=== PATIENT | male | born 1965 | race Two or more races ===

== ENCOUNTER 2020-05-24 14:58 | Emergency (ER) | payer OTHER, SELFPAY ==
[2020-05-24 16:20] VITALS: BP 174/80; PULSE 70; RESP 20; TEMP 36.8; O2SAT 98; BMI 78.7
[2020-05-24] MEDS: 0.9 % Sodium Chloride 1,000 ML 999 ML IVCONT (19:57)
[2020-05-24 19:59] LABS: MANUAL DIFF FLAG NO
[2020-05-24 20:02] LABS: Basophils Percent Auto 0.1 % (0-2); Eosinophils Absolute Auto 0.1 X10*3/uL (0.0-0.4); Eosinophils Percent Auto 0.6 % (0-4); Hematocrit 45.7 % (42-52); Hemoglobin 15.6 g/dl (14.0-18.0); Imm Gran Abs Auto 0.02 X10*3/uL (0.00-0.03); Imm Gran Pct Auto 0.2 % (0.0-0.4); Lymphocytes Absolute Auto 2.1 X10*3/uL (1.2-4.9); Lymphocytes Percent Auto 24.1 % (20-40); Mean Corpuscular HGB Conc 34.1 g/dl (31.0-36.0); Mean Corpuscular Hemoglobin 29.3 pg (27.0-33.0); Mean Corpuscular Volume 85.7 fL (80-98); Mean Platelet Volume 9.5 fL (9.4-12.4); Monocytes Absolute Auto 0.8 X10*3/uL (0.1-1.2); Monocytes Percent Auto 9.5 % (2-11); Neutrophils Absolute Auto 5.7 X10*3/uL (2.0-8.3); Neutrophils Percent Auto 65.5 % (45-73); Platelet Count 223 X10*3/uL (160-400); Red Blood Count 5.33 X10*6/uL (4.60-5.80); Red Cell Distribution Width 13.2 % (11.0-16.0); White Blood Count 8.7 X10*3/uL (4.8-10.8)
--- NOTE | 2020-05-24 20:07 | ED.GENADULT ---
HPI - General Adult General Chief complaint: Weakness Stated complaint: high bp Time Seen by Provider: 05/24/20 19:35 Source: patient Mode of arrival: ambulatory Limitations: no limitations History of Present Illness HPI narrative: patient been feeling weak with body aches for last 2-3 days headache no cough no fever no nausea no vomiting no diarrhea no COVID-19 contact patient had COVID positive in November, today in a.m. patient checked his blood pressure was elevated 173/95 patient denies any chest pain no shortness of breath no abdominal pain no diarrhea Onset (ago): day(s) (2-3 days) Related Data Home Medications Medication Instructions Recorded Confirmed lisinopril 1 tab PO DAILY 05/24/20 05/24/20 metoprolol tartrate 1 tab PO BID 05/24/20 05/24/20 Allergies Allergy/AdvReac Type Severity Reaction Status Date / Time No Known Allergies Allergy Unverified 04/04/20 17:17 [No Known Allergies*] Review of Systems Review of Systems: REVIEW OF SYSTEMS: Pertinent positives and negatives are stated above in the history. GEN: no fevers, chills, HEENT: no nasal congestion, sore throat, ear pain NEURO: no dizziness, focal weakness PULM: no cough, shortness of breath CV: no chest pain, palpitations, LE edema ABD: no abdominal pain, nausea, vomiting, diarrhea : no dysuria, urgency, frequency SKIN: no rash ROS otherwise negative x 10 PMFSH Past Medical History Medical History Hypertension Ulcerative colitis Social History Social History Advance Directives: No Advance Directives Information Provided: Yes Physical Exam Vital Signs: Vital Signs: Last Vital Signs Temp 98.3 F 05/24/20 16:20 Pulse 55 05/24/20 20:42 Resp 18 05/24/20 20:42 BP 137/83 05/24/20 20:42 Pulse Ox 99 05/24/20 20:42 Body Mass Index 78.7 VITAL SIGNS: Reviewed. GENERAL: Well developed, well nourished, in no acute distress. HEAD: Normocephalic/atraumatic, EYES: PERRLA No pallor/icterus noted OROPHARYNX: Oral mucosa moist no oral lesions NECK: Supple, no adenopathy LUNGS: Normal breath sounds. No adventitious sounds or accessory muscle use CARDIOVASCULAR: Regular rate and rhythm without noted murmurs, no JVD or lower extremity edema. ABDOMEN: Soft, non-tender, non-distended with normal bowel sounds. No rigidity. No guarding. No palpable masses or hernias noted MUSCULOSKELETAL: No tenderness, deformities, EXTREMITIES: No cyanosis or edema. SKIN: no rashes, ulcerations, jaundice, pallor, NEUROLOGIC: Alert and oriented x 3. Strength and sensation to light touch were grossly intact normal speech Medical Decision Making MDM Narrative Medical decision making narrative: patient with nonspecific body aches COVID test is negative labs are stable discharge him home for musculoskeletal pain patient blood pressure also improved without any medication Lab Data Lab results reviewed: Yes I reviewed the patient's lab results. Result diagrams: 05/24/20 19:53 05/24/20 20:45 Labs: Lab Results 05/24/20 05/24/20 05/24/20 Range/Units 19:53 19:53 19:53 WBC 8.7 (4.8-10.8) X10*3/uL RBC 5.33 (4.60-5.80) X10*6/uL Hgb 15.6 (14.0-18.0) g/dl Hct 45.7 (42-52) % MCV 85.7 (80-98) fL MCH 29.3 (27.0-33.0) pg MCHC 34.1 (31.0-36.0) g/dl RDW 13.2 (11.0-16.0) % Plt Count 223 (160-400) X10*3/uL MPV 9.5 (9.4-12.4) fL Immature Gran % (Auto) 0.2 (0.0-0.4) % Neut % (Auto) 65.5 (45-73) % Lymph % (Auto) 24.1 (20-40) % [place] % (Auto) 9.5 (2-11) % Eos % (Auto) 0.6 (0-4) % Baso % (Auto) 0.1 (0-2) % Lymph # (Auto) 2.1 (1.2-4.9) X10*3/uL [place] # (Auto) 0.8 (0.1-1.2) X10*3/uL Eos # (Auto) 0.1 (0.0-0.4) X10*3/uL Baso # (Auto) 0.0 (0.0-0.2) X10*3/uL Abs Immat Gran (auto) 0.02 (0.00-0.03) X10*3/uL Absolute Neuts (auto) 5.7 (2.0-8.3) X10*3/uL Absolute Nucleated RBC 0.000 (0.0-0.012) X10*3/uL Nucleated RBC % (auto) 0.0 (0.0-0.2) /100WBC Sodium Cancelled Potassium Cancelled Chloride Cancelled Carbon Dioxide Cancelled Anion Gap Cancelled BUN Cancelled Creatinine Cancelled Estim Creat Clear Calc Cancelled Estimated GFR Cancelled Random Glucose Cancelled Calcium Cancelled Total Bilirubin Cancelled Direct Bilirubin Cancelled AST Cancelled ALT Cancelled Alkaline Phosphatase Cancelled Total Protein Cancelled Albumin Cancelled Urine Color Urine Appearance Urine pH (5.0-8.0) Ur Specific [place] (1.005-1.025) Urine Protein (NEG-TRACE) MG/DL Urine Glucose (UA) (NEG) MG/DL Urine Ketones (NEG) MG/DL Urine Blood (NEG) Urine Nitrite (NEG) Ur Leukocyte Esterase (NEG) Coronavirus (PCR) (Negative) 05/24/20 05/24/20 05/24/20 Range/Units 19:55 20:45 21:52 WBC (4.8-10.8) X10*3/uL RBC (4.60-5.80) X10*6/uL Hgb (14.0-18.0) g/dl Hct (42-52) % MCV (80-98) fL MCH (27.0-33.0) pg MCHC (31.0-36.0) g/dl RDW (11.0-16.0) % Plt Count (160-400) X10*3/uL MPV (9.4-12.4) fL Immature Gran % (Auto) (0.0-0.4) % Neut % (Auto) (45-73) % Lymph % (Auto) (20-40) % [place] % (Auto) (2-11) % Eos % (Auto) (0-4) % Baso % (Auto) (0-2) % Lymph # (Auto) (1.2-4.9) X10*3/uL [place] # (Auto) (0.1-1.2) X10*3/uL Eos # (Auto) (0.0-0.4) X10*3/uL Baso # (Auto) (0.0-0.2) X10*3/uL Abs Immat Gran (auto) (0.00-0.03) X10*3/uL Absolute Neuts (auto) (2.0-8.3) X10*3/uL Absolute Nucleated RBC (0.0-0.012) X10*3/uL Nucleated RBC % (auto) (0.0-0.2) /100WBC Sodium 139 Potassium 3.8 Chloride 105 Carbon Dioxide 24 Anion Gap 14 BUN 16 Creatinine 0.79 Estim Creat Clear Calc 201.8 Estimated GFR > 60 Random Glucose 103 Calcium 8.0 L Total Bilirubin 0.2 Direct Bilirubin 0.2 AST 27 ALT 33 Alkaline Phosphatase 52 Total Protein 6.5 Albumin 3.9 Urine Color STRAW Urine Appearance CLEAR Urine pH 6.0 (5.0-8.0) Ur Specific [place] 1.020 (1.005-1.025) Urine Protein NEG (NEG-TRACE) MG/DL Urine Glucose (UA) NEG (NEG) MG/DL Urine Ketones NEG (NEG) MG/DL Urine Blood NEG (NEG) Urine Nitrite NEG (NEG) Ur Leukocyte Esterase NEG (NEG) Coronavirus (PCR) NEGATIVE (Negative) Discharge Plan Discharge Prescriptions: No Action lisinopril 20 mg tablet 1 tab PO DAILY RF: 0 metoprolol tartrate 25 mg tablet 1 tab PO BID RF: 0 Stand Alone Forms: Work/School Release
[2020-05-24] MEDS: Ketorolac Tromethamine 30 MG/ML VIAL IVPUSH (20:22)
[2020-05-24 20:42] VITALS: BP 137/83; PULSE 55; RESP 18; O2SAT 99
[2020-05-24 21:13] LABS: Alanine Aminotransferase 33 U/L (0-40); Albumin Level 3.9 g/dL (3.5-5.0); Alkaline Phosphatase 52 U/L (39-117); Anion Gap 14 (12-20); Aspartate Amino Transferase 27 U/L (5-37); Bilirubin Direct 0.2 mg/dL (0.0-0.5); Bilirubin Total 0.2 mg/dL (0.0-1.0); Blood Urea Nitrogen 16 mg/dL (9-16); Carbon Dioxide 24 mmol/L (22-29); Chloride 105 mmol/L (96-108); Creatinine Clr Calc Pharmacy 201.8; Estimated Glomerular Filt Rate > 60; Glucose Random 103 mg/dL (60-115); Potassium 3.8 mmol/l (3.3-5.1); Sodium 139 mmol/L (135-145); Total Protein 6.5 g/dL (6.5-8.0)
[2020-05-24 21:24] LABS: SARS COV2 PCR INHOUSE NEGATIVE (Negative)
--- NOTE | 2020-05-24 21:55 | PC.NURSE ---
pt ambulated to bathroom with steady gait for urine sample. pt states he feels better. pending uacc then d/c
[2020-05-24 22:08] LABS: Glucose Urine UA NEG (NEG); Leukocyte Esterase Urine NEG (NEG); Nitrite Urine NEG (NEG); Urine Blood NEG (NEG); Urine Ketones NEG (NEG); Urine Protein NEG (NEG-TRACE)
[2020-05-24 22:12] LABS: Appearance Urine CLEAR; Color Urine STRAW
[2020-05-24 22:23] VITALS: BP 126/76; PULSE 64; RESP 18; TEMP 36.9; O2SAT 99
[2020-05-24 22:56] LABS: Mucus Urine 1+ /LPF; RBC Urine 0 /HPF (0); Squamous Epithelial Cell Urine TRACE /LPF; WBC Urine 0 /HPF (0-4)
== END 2020-05-24 22:35 | disposition home or self-care (01) ==
PROVIDERS: Emergency Provider Internal Medicine; PCP Internal Medicine
DX: M79.10 Myalgia, unspecified site (principal); R51.9 Headache, unspecified; Z20.828 Contact with and (suspected) exposure to other viral communicable diseases; Z79.899 Other long term (current) drug therapy
CPT/HCPCS: 36415; 80048; 80076; 81001; 85025; 96361; 96374; 99284; J1885; U0003

== ENCOUNTER 2020-06-21 10:13 | Emergency (ER) | payer OTHER, SELFPAY ==
[2020-06-21 10:22] VITALS: BP 140/79; PULSE 60; RESP 18; TEMP 36.3; O2SAT 99; BMI 36.5
--- NOTE | 2020-06-21 10:34 | ED.ABDPAIN ---
HPI - Abdominal Pain General Chief Complaint: Abdominal Pain Stated Complaint: ABDOMINAL PAIN Time Seen by Provider: 06/21/20 10:34 Source: patient Mode of arrival: ambulatory Limitations: no limitations History of Present Illness HPI narrative: left upper burning pain. Patient had pains and had colonoscopy but needed a better prep. Denies dysuria, hematuria, no vomiting or diarrhea. MD elicited complaint: abdominal pain Pertinent past history: none Onset (ago): minute(s) Pain Consistency: constant Related Data Home Medications Medication Instructions Recorded Confirmed lisinopril 1 tab PO DAILY 05/24/20 05/24/20 metoprolol tartrate 1 tab PO BID 05/24/20 05/24/20 Allergies Allergy/AdvReac Type Severity Reaction Status Date / Time No Known Allergies Allergy Verified 06/21/20 10:27 [No Known Allergies*] Review of Systems Constitutional: Reports no additional constitutional complaints Eyes: Reports no additional eye complaints Denies dizziness Cardiovascular: Reports no additional cardiovascular complaints Respiratory: Reports as per HPI Gastrointestinal: Reports no additional gastrointestinal complaints Musculoskeletal: Reports no additional musculoskeletal complaints Skin/Breast: Denies rash Reports system reviewed and no additional complaints, except as documented, Denies dizziness and Denies Sensory deficit (Neuro) Psychiatric: Denies anxiety Physical Exam Vital Signs: Vital Signs: Last Vital Signs Temp 97.3 F 06/21/20 10:22 Pulse 60 06/21/20 10:22 Resp 18 06/21/20 10:22 BP 140/79 H 06/21/20 10:22 Pulse Ox 99 06/21/20 10:22 Body Mass Index 36.5 Const: General: healthy appearing Nutritional Appearance: obese Orientation/consciousness: oriented to person and patient oriented x3 Limitations: no limitations HENMT: Head: Yes normal to inspection Ears: external ears normal General nose exam: Normal external nose present Mouth: Normal oral and palatal mucosa present and oropharynx normal Throat: Yes posterior oropharynx normal Eyes: General: appearance normal, both eyes and all related structures Neck: Other: supple Neck: Yes normal visual inspection Chest: Chest palpation & inspection: normal inspection of the chest Resp: Auscultation: clear to auscultation bilaterally Cardio: Jugular venous distension: no JVD Rate: regular rate Rhythm: regular rhythm Heart sounds: S1 normal heart sound present and S2 normal heart sound present GI: Other: left lower abdominal pain with guarding Inspection: Yes normal to inspection Palpation (GI): Tenderness to palpation present (GI) and No hepatosplenomegaly present Auscultation: normal bowel sounds : General: Yes no CVA tenderness Back/Spine/Pelvis: Back: no CVA tenderness Skin: General skin exam: no rashes or lesions noted Neuro: General: oriented to person and patient oriented x3 Cranial nerves: Yes CN's II-XII intact bilaterally Motor exam (neuro): 5/5 motor strength present throughout Sensory Exam: No Sensory deficit (Neuro) Extrem: General: Yes normal to inspection Psych: Appearance: grossly normal Course Course Course Narrative: awaiting urine Reevaluation(s) Reevaluation #1: urine is negative Time: 15:29 MDM - Abdominal Pain MDM Narrative Medical decision making narrative: no evidence of diverticulitis or UTI will dc home Differential Diagnosis Differential diagnosis: Likely abdominal pain and diverticulitis Lab Data Result diagrams: 06/21/20 11:02 06/21/20 11:02 Labs: Lab Results 06/21/20 06/21/20 06/21/20 Range/Units 11:02 11:02 14:09 WBC 5.6 (4.8-10.8) X10*3/uL RBC 5.28 (4.60-5.80) X10*6/uL Hgb 15.4 (14.0-18.0) g/dl Hct 46.0 (42-52) % MCV 87.1 (80-98) fL MCH 29.2 (27.0-33.0) pg MCHC 33.5 (31.0-36.0) g/dl RDW 13.6 (11.0-16.0) % Plt Count 192 (160-400) X10*3/uL MPV 9.6 (9.4-12.4) fL Immature Gran % (Auto) 0.2 (0.0-0.4) % Neut % (Auto) 54.5 (45-73) % Lymph % (Auto) 32.7 (20-40) % [place] % (Auto) 11.0 (2-11) % Eos % (Auto) 1.2 (0-4) % Baso % (Auto) 0.4 (0-2) % Lymph # (Auto) 1.8 (1.2-4.9) X10*3/uL [place] # (Auto) 0.6 (0.1-1.2) X10*3/uL Eos # (Auto) 0.1 (0.0-0.4) X10*3/uL Baso # (Auto) 0.0 (0.0-0.2) X10*3/uL Abs Immat Gran (auto) 0.01 (0.00-0.03) X10*3/uL Absolute Neuts (auto) 3.1 (2.0-8.3) X10*3/uL Absolute Nucleated RBC 0.000 (0.0-0.012) X10*3/uL Nucleated RBC % (auto) 0.0 (0.0-0.2) /100WBC Sodium 139 (135-145) mmol/L Potassium 4.5 (3.3-5.1) mmol/l Chloride 102 (96-108) mmol/L Carbon Dioxide 30 H (22-29) mmol/L Anion Gap 12 (12-20) BUN 20 H (9-16) mg/dL Creatinine 0.90 (0.5-1.4) mg/dL Estim Creat Clear Calc 110.9 Estimated GFR > 60 Random Glucose 95 (60-115) mg/dL Calcium 9.3 D (8.4-10.2) mg/dL Total Bilirubin 0.8 (0.0-1.0) mg/dL Direct Bilirubin 0.2 (0.0-0.5) mg/dL AST 28 (5-37) U/L ALT 37 (0-40) U/L Alkaline Phosphatase 54 (39-117) U/L Total Protein 7.2 (6.5-8.0) g/dL Albumin 4.3 (3.5-5.0) g/dL Urine Color YELLOW Urine Appearance CLEAR Urine pH 6.5 (5.0-8.0) Ur Specific [place] 1.015 (1.005-1.025) Urine Protein NEG (NEG-TRACE) MG/DL Urine Glucose (UA) NEG (NEG) MG/DL Urine Ketones NEG (NEG) MG/DL Urine Blood NEG (NEG) Urine Nitrite NEG (NEG) Ur Leukocyte Esterase NEG (NEG) Imaging Data CT scan - abdomen: Radiologist's impression: no diverticulitis Discharge Plan Discharge Clinical Impression: Abdominal pain Qualifiers: Abdominal location: left lower quadrant Qualified Code(s): R10.32 - Left lower quadrant pain Patient Disposition: Home, Self-Care Prescriptions: No Action lisinopril 20 mg tablet 1 tab PO DAILY RF: 0 metoprolol tartrate 25 mg tablet 1 tab PO BID RF: 0 Referrals: Nilsa Sexton MD [Primary Care Provider] - 2 days PMFSH Past Medical History Medical History Hypertension Psoriasis Ulcerative colitis Surgical History No pertinent past surgical history Social History Social History Alcohol intake: never Smoked in Last 30 Days: No Use of substances other than those prescribed or required for medical reasons: Unable to respond Advance Directives: No Advance Directives Information Provided: No
--- NOTE | 2020-06-21 10:54 | CT_ITS ---
EXAMINATION: CT ABDOMEN AND PELVIS WITHOUT CONTRAST CLINICAL INFORMATION: Left lower pain. COMPARISON: None TECHNIQUE: Multidetector volumetric imaging was performed from the superior aspect of the liver through the pubic symphysis. Sagittal and coronal reformatted images were obtained on the technologist's workstation. This CT examination was performed using dose optimization techniques as appropriate, variously including the following: *Automated exposure control *Adjustment of mA and/or kV according to patient size (this includes techniques or standardized protocols for targeted exams where dose is matched to indication/reason for exam; i.e. extremities or head) *Use of iterative reconstruction technique DLP: 813 mGy-cm FINDINGS: LUNG BASES: The lung bases are clear there is an size is normal. LIVER, GALLBLADDER, AND BILIARY TREE: The liver is normal in size, shape, and attenuation. No focal hepatic lesion or biliary ductal dilatation is present. The gallbladder is unremarkable with no evidence of radiopaque gallstones, gallbladder wall thickening, or obvious pericholecystic inflammatory changes. PANCREAS: Unremarkable. SPLEEN: Unremarkable. ADRENAL GLANDS: Unremarkable. KIDNEYS AND URETERS: The kidneys are normal in size, shape, and attenuation. No hydronephrosis, hydroureter, or calculi seen. No perinephric stranding. BLADDER: Unremarkable. GASTROINTESTINAL TRACT: There is scattered stool and gas seen throughout the colon. There is scattered diverticula in the colon the small bowel loops are normal caliber. No free air, free fluid or inflammatory process seen. ABDOMINAL WALL: There is no evidence of hernia minimal fat filled nondistended left inguinal canal is noted. LYMPH NODES: Normal. VASCULAR: Unremarkable. PELVIC VISCERA: There is no free fluid or free air seen. OSSEOUS STRUCTURES: Is bilateral L5-S1, L4-L5 and right L3-L4 facet joint hypertrophy and arthropathy. There is moderate ventral spondylosis upper and mid lumbar spine. No fracture or lytic process seen. CT/CT abdomen pelvis wo con IMPRESSION: No acute intra-abdominal process seen. Scattered stool in the dilated level with no evidence of diverticulitis. Degenerative facet joint arthropathy.
[2020-06-21 11:08] LABS: Basophils Percent Auto 0.4 % (0-2); Eosinophils Absolute Auto 0.1 X10*3/uL (0.0-0.4); Eosinophils Percent Auto 1.2 % (0-4); Hemoglobin 15.4 g/dl (14.0-18.0); Imm Gran Abs Auto 0.01 X10*3/uL (0.00-0.03); Imm Gran Pct Auto 0.2 % (0.0-0.4); Lymphocytes Absolute Auto 1.8 X10*3/uL (1.2-4.9); Lymphocytes Percent Auto 32.7 % (20-40); MANUAL DIFF FLAG NO; Mean Corpuscular HGB Conc 33.5 g/dl (31.0-36.0); Mean Corpuscular Hemoglobin 29.2 pg (27.0-33.0); Mean Corpuscular Volume 87.1 fL (80-98); Mean Platelet Volume 9.6 fL (9.4-12.4); Monocytes Absolute Auto 0.6 X10*3/uL (0.1-1.2); Neutrophils Absolute Auto 3.1 X10*3/uL (2.0-8.3); Neutrophils Percent Auto 54.5 % (45-73); Platelet Count 192 X10*3/uL (160-400); Red Blood Count 5.28 X10*6/uL (4.60-5.80); Red Cell Distribution Width 13.6 % (11.0-16.0); White Blood Count 5.6 X10*3/uL (4.8-10.8)
[2020-06-21 11:37] LABS: Alanine Aminotransferase 37 U/L (0-40); Albumin Level 4.3 g/dL (3.5-5.0); Alkaline Phosphatase 54 U/L (39-117); Anion Gap 12 (12-20); Aspartate Amino Transferase 28 U/L (5-37); Bilirubin Direct 0.2 mg/dL (0.0-0.5); Bilirubin Total 0.8 mg/dL (0.0-1.0); Blood Urea Nitrogen 20 mg/dL (9-16); Calcium 9.3 mg/dL (8.4-10.2); Carbon Dioxide 30 mmol/L (22-29); Chloride 102 mmol/L (96-108); Creatinine Clr Calc Pharmacy 110.9; Estimated Glomerular Filt Rate > 60; Glucose Random 95 mg/dL (60-115); Potassium 4.5 mmol/l (3.3-5.1); Sodium 139 mmol/L (135-145); Total Protein 7.2 g/dL (6.5-8.0)
[2020-06-21 14:20] LABS: Glucose Urine UA NEG (NEG); Leukocyte Esterase Urine NEG (NEG); Nitrite Urine NEG (NEG); PH 6.5 (5.0-8.0); Specific Gravity - Urine 1.015 (1.005-1.025); Urine Blood NEG (NEG); Urine Ketones NEG (NEG); Urine Protein NEG (NEG-TRACE)
[2020-06-21 14:22] LABS: Appearance Urine CLEAR; Color Urine YELLOW
== END 2020-06-21 17:01 | disposition home or self-care (01) ==
PROVIDERS: Emergency Provider Emergency Medicine; PCP Internal Medicine
DX: R10.13 Epigastric pain (principal); R10.32 Left lower quadrant pain; Z79.899 Other long term (current) drug therapy
CPT/HCPCS: 36415; 74176; 80048; 80076; 81003; 85025; 99284

== ENCOUNTER → 2020-06-28 16:15 | Outpatient (BNVA) | payer OTHER, SELFPAY | PROVIDERS: PCP Internal Medicine; Visit Provider Physician Assistant | DX: Z76.89 Persons encountering health services in other specified circumstances (principal) ==

== ENCOUNTER → 2020-07-02 08:15 | Outpatient (BNVA) | payer OTHER, SELFPAY | PROVIDERS: PCP Internal Medicine; Visit Provider Surgery | DX: Z76.89 Persons encountering health services in other specified circumstances (principal) ==

== ENCOUNTER → 2020-07-10 08:07 | Outpatient (BNVA) | payer OTHER, SELFPAY | PROVIDERS: PCP Internal Medicine; Visit Provider Dietitian, Registered | DX: Z76.89 Persons encountering health services in other specified circumstances (principal) ==

== ENCOUNTER 2020-07-11 11:06 | Outpatient (REF) | payer OTHER, SELFPAY ==
--- NOTE | 2020-07-11 11:13 | ECG_ITS ---
Test Reason : CP Blood Pressure : / mmHG Vent. Rate : 051 BPM Atrial Rate : 051 BPM P-R Int : 140 ms QRS Dur : 098 ms QT Int : 426 ms P-R-T Axes : 034 012 022 degrees QTc Int : 392 ms Sinus bradycardia RSR' or QR pattern in V1 suggests right ventricular conduction delay Minimal voltage criteria for LVH, may be normal variant Borderline ECG No previous ECGs available Referred By: Robert Bee Electronically Signed By:DANIEL EID MD
--- NOTE | 2020-07-11 11:38 | XR_ITS ---
EXAMINATION: XR CHEST CLINICAL INFORMATION: K21.9 - Gastro-esophageal reflux disease without esophagitis COMPARISON: CT abdomen 06/21/2020 TECHNIQUE: 2 views of the chest were obtained. FINDINGS: The lungs are clear. There is no airspace consolidation or atelectasis or groundglass opacity. The costophrenic sulci are well-defined. The heart is normal in size. The hilar and mediastinal contours are normal. There are multilevel degenerative changes thoracic spine. XR/XR chest 2V IMPRESSION: Unremarkable examination.
[2020-07-11 12:16] LABS: MANUAL DIFF FLAG NO
[2020-07-11 12:22] LABS: Basophils Percent Auto 0.3 % (0-2); Eosinophils Absolute Auto 0.1 X10*3/uL (0.0-0.4); Eosinophils Percent Auto 1.5 % (0-4); Hematocrit 47.7 % (42-52); Hemoglobin 15.9 g/dl (14.0-18.0); Imm Gran Abs Auto 0.01 X10*3/uL (0.00-0.03); Imm Gran Pct Auto 0.2 % (0.0-0.4); Lymphocytes Absolute Auto 1.9 X10*3/uL (1.2-4.9); Lymphocytes Percent Auto 31.1 % (20-40); Mean Corpuscular HGB Conc 33.3 g/dl (31.0-36.0); Mean Corpuscular Hemoglobin 29.1 pg (27.0-33.0); Mean Corpuscular Volume 87.4 fL (80-98); Monocytes Absolute Auto 0.7 X10*3/uL (0.1-1.2); Monocytes Percent Auto 11.2 % (2-11); Neutrophils Absolute Auto 3.4 X10*3/uL (2.0-8.3); Neutrophils Percent Auto 55.7 % (45-73); Platelet Count 241 X10*3/uL (160-400); Red Blood Count 5.46 X10*6/uL (4.60-5.80); Red Cell Distribution Width 13.5 % (11.0-16.0); White Blood Count 6.1 X10*3/uL (4.8-10.8)
[2020-07-11 12:33] LABS: Alanine Aminotransferase 38 U/L (0-40); Albumin Level 4.5 g/dL (3.5-5.0); Alkaline Phosphatase 60 U/L (39-117); Anion Gap 13 (12-20); Aspartate Amino Transferase 27 U/L (5-37); Bilirubin Total 0.7 mg/dL (0.0-1.0); Blood Urea Nitrogen 24 mg/dL (9-16); C Reactive Protein 0.44 mg/dL (< or = 0.50); Calcium 9.8 mg/dL (8.4-10.2); Carbon Dioxide 31 mmol/L (22-29); Chloride 101 mmol/L (96-108); Cholesterol 186 mg/dL; Estimated Glomerular Filt Rate > 60; Glucose Random 90 mg/dL (60-115); HDL Cholesterol 54 mg/dL; LDL Cholesterol Calculated 115 mg/dl; Potassium 4.6 mmol/l (3.3-5.1); Sodium 140 mmol/L (135-145); Total Protein 7.6 g/dL (6.5-8.0); Triglycerides 85 mg/dL
[2020-07-11 12:37] LABS: Estimated Average Glucose 123 mg/dL; Hemoglobin A1c % 5.9 %
[2020-07-11 12:56] LABS: Ferritin 264 ng/mL (20-250); Vitamin D 25-OH Total 24.3 ng/mL (>30)
[2020-07-11 13:04] LABS: Folate > 20.0 ng/mL (> or = 4.0); Vitamin B12 412 pg/mL (200-900)
[2020-07-12 10:56] LABS: Insulin Level Total 16.8 uIU/mL
[2020-07-15 08:22] LABS: Vitamin B1 25 nmol/L (8-30)
[2020-07-15 16:12] LABS: Zinc 116 mcg/dL (60-130)
[2020-07-15 18:52] LABS: PTHI 40 pg/mL (14-64)
[2020-07-17 11:32] LABS: Vitamin A 47 mcg/dL (38-98)
== END 2020-07-11 11:07 | disposition home or self-care (01) ==
LOC: HO.XRAY 11:06
PROVIDERS: PCP Internal Medicine; Visit Provider Surgery
DX: R07.9 Chest pain, unspecified (principal); I10 Essential (primary) hypertension; E66.9 Obesity, unspecified; Z68.37 Body mass index [BMI] 37.0-37.9, adult; G47.30 Sleep apnea, unspecified; K21.9 Gastro-esophageal reflux disease without esophagitis
CPT/HCPCS: 36415; 71046; 80053; 80061; 82306; 82607; 82728; 82746; 83036; 83525; 83970; 84425; 84443; 84590; 84630; 85025; 86140; 93005

== ENCOUNTER 2020-07-15 09:46 | Inpatient (IN) | payer OTHER, SELFPAY ==
[2020-07-15] VITALS (12 sets, daily range): BP systolic 111–176; BP diastolic 63–95; PULSE 60–76; RESP 14–72; TEMP 36.2–36.7; O2SAT 97–100; BMI 37.5
--- NOTE | 2020-07-15 10:56 | CT_ITS ---
EXAMINATION: CT HEAD WITHOUT CONTRAST CLINICAL INFORMATION: Headache, blurry vision and hypertension COMPARISON: None TECHNIQUE: Contiguous axial imaging was performed from the skull base to vertex without intravenous administration of contrast. This CT examination was performed using dose optimization techniques as appropriate, variously including the following: *Automated exposure control *Adjustment of mA and/or kV according to patient size (this includes techniques or standardized protocols for targeted exams where dose is matched to indication/reason for exam; i.e. extremities or head) *Use of iterative reconstruction technique DLP: 752 mGy-cm FINDINGS: No acute intra-axial, extra-axial bleed, masses collection or midline shift. There is a focal hypodensity in the left frontal lobe deep white matter a small lacunar infarct likely acute. Visualized best on axial image 16/4 and coronal image 87/7. The ventricles are normal in size. There is no abnormal attenuation within the brain parenchyma. The osseous structures and soft tissues are normal. There is a small polyp or retention cyst right maxillary sinus. Rest of the paranasal sinuses and mastoid air cells are well-aerated.. CT/CT head/brain wo con IMPRESSION: Small lacunar acute infarct left deep white matter left frontal lobe Small polyp or retention cyst right maxillary sinus.
--- NOTE | 2020-07-15 10:56 | ECG_ITS ---
Test Reason : HYPERTENSION Blood Pressure : / mmHG Vent. Rate : 063 BPM Atrial Rate : 063 BPM P-R Int : 148 ms QRS Dur : 098 ms QT Int : 406 ms P-R-T Axes : 025 -07 022 degrees QTc Int : 415 ms Normal sinus rhythm Incomplete right bundle branch block Moderate voltage criteria for LVH, may be normal variant Borderline ECG When compared with ECG of 11-JUL-2020 11:29, No significant change was found Referred By: Eva Chavez Electronically Signed By:ADILENE MARTIN
[2020-07-15 11:50] LABS: MANUAL DIFF FLAG NO
[2020-07-15 11:52] LABS: Basophils Percent Auto 0.3 % (0-2); Eosinophils Absolute Auto 0.1 X10*3/uL (0.0-0.4); Eosinophils Percent Auto 1.4 % (0-4); Hematocrit 45.2 % (42-52); Hemoglobin 15.1 g/dl (14.0-18.0); Imm Gran Abs Auto 0.02 X10*3/uL (0.00-0.03); Imm Gran Pct Auto 0.3 % (0.0-0.4); Lymphocytes Absolute Auto 1.8 X10*3/uL (1.2-4.9); Lymphocytes Percent Auto 28.1 % (20-40); Mean Corpuscular HGB Conc 33.4 g/dl (31.0-36.0); Mean Corpuscular Hemoglobin 29.4 pg (27.0-33.0); Mean Corpuscular Volume 88.1 fL (80-98); Mean Platelet Volume 9.3 fL (9.4-12.4); Monocytes Absolute Auto 0.7 X10*3/uL (0.1-1.2); Monocytes Percent Auto 10.1 % (2-11); Neutrophils Absolute Auto 3.9 X10*3/uL (2.0-8.3); Neutrophils Percent Auto 59.8 % (45-73); Platelet Count 212 X10*3/uL (160-400); Red Blood Count 5.13 X10*6/uL (4.60-5.80); Red Cell Distribution Width 13.5 % (11.0-16.0); White Blood Count 6.5 X10*3/uL (4.8-10.8)
--- NOTE | 2020-07-15 12:11 | ED_ITS ---
HPI - General Adult General Chief complaint: General Medical Stated complaint: high blood pressure Time Seen by Provider: 07/15/20 10:47 Source: patient Mode of arrival: ambulatory History of Present Illness HPI narrative: 55-year-old male with a past medical history of GERD, hypertension, BC, psoriasis, UC, sleep apnea on CPAP presenting to the ED complaining of headache with assoc blurry vision this morning around 5:00 a.m. while getting ready for work. Admits took blood pressure and was elevated 160s/100s. Also reports left arm pain since yesterday. Denies headache or visual changes at present. 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 Denies fever, chills, neck pain, CP/SOB, abdominal pain, vom iting, recent illness, numbness/tingling/weakness Onset (ago): hour(s) Related Data Home Medications Medication Instructions Recorded Confirmed lisinopril 1 tab PO DAILY 05/24/20 07/02/20 metoprolol tartrate 1 tab PO BID 05/24/20 07/02/20 omeprazole magnesium 20 mg 20 mg PO DAILY 07/02/20 07/02/20 tablet,delayed release Allergies Allergy/AdvReac Type Severity Reaction Status Date / Time No Known Allergies Allergy Verified 07/02/20 10:25 [No Known Allergies*] Review of Systems Review of Systems: Constitutional: No Weight loss, No Fever, No Chills ENT/Mouth: No Nasal Congestion, No Sinus Pain, No Hoarseness, No sore throat Eyes: No Eye Pain, No Discharge, + Vision Changes (resolved) Cardiovascular: No Chest Pain, No SOB, No Edema, No Palpitations Respiratory: No Cough, No Dyspnea Gastrointestinal: + Nausea, No Vomiting, No Diarrhea, No Constipation, No Abdominal pain Genitourinary: No Dysuria, No Urinary Frequency, No Hematuria Musculoskeletal: +L arm pain, No Myalgias, No Joint Swelling Skin: No Skin Lesions, No rash Neuro: No Weakness, No Numbness, No Paresthesias, No Loss of Consciousness, No Dizziness, + Headache (resolved) Yes all other systems are reviewed and are negative PMFSH Past Medical History Attestation statement: The following information was validated with the patient. Medical History (Updated 07/15/20 @ 14:14 by ALFRED Haley) Back pain GERD (gastroesophageal reflux disease) Hypertension Obesity Psoriasis Sleep apnea with use of continuous positive airway pressure (CPAP) Ulcerative colitis Surgical History No pertinent past surgical history Family History Family History Father No problems noted. Mother No problems noted. Sister No problems noted. Sister No problems noted. Sister Kidney replaced by transplant Brother No problems noted. Brother No problems noted. Brother No problems noted. Brother Diabetes Son No problems noted. Daughter No problems noted. Social History Social History Alcohol intake: never Smoking Status: Never smoker Advance Directives: No Advance Directives Information Provided: Yes Physical Exam Vital Signs: Vital Signs: Last Vital Signs Temp 98 F 07/15/20 12:37 Pulse 66 07/15/20 12:37 Resp 18 07/15/20 12:37 BP 131/70 07/15/20 12:37 Pulse Ox 98 07/15/20 12:37 Body Mass Index 37.5 Const: General: cooperative and healthy appearing Orientation/consciousness: patient oriented x3 Limitations: no limitations HENMT: Head: Yes normal to inspection Ears: hearing grossly normal bilaterally General nose exam: Normal external nose present Face and sinus: Yes normal facial exam Throat: Yes posterior oropharynx normal Eyes: General: appearance normal, both eyes and all related structures Pupils: Equal, round and reactive pupils present EOM: EOMs intact bilaterally Neck: Neck: Yes normal visual inspection and Yes no meningeal signs Resp: Effort & Inspection: normal respiratory effort Auscultation: clear to auscultation bilaterally, no rales, no rhonchi and no wheezes Cardio: Rate: regular rate Heart sounds: S1 normal heart sound present and S2 normal heart sound present Peripheral pulses: radial pulses present GI: Inspection: Yes normal to inspection Palpation (GI): Soft to palpation, nontender, no guarding and not rigid Skin: Rashes: no rashes Wounds: no wounds Neuro: General: patient oriented x3, tone normal, moves all extremities, no meningeal signs, no focal motor deficits and CN's II-XI intact bilaterally Cranial nerves: Yes Equal, round and reactive pupils present Cognition (Neuro): normal cognition Gait exam (Neuro): Normal gait present Motor ex am (neuro): 5/5 motor strength present throughout Coordination: [id number] test normal and Romberg test negative Extrem: General: Yes normal to inspection NIH Stroke Scale Internal: Initial- Upon Arrival Level of Consciousness: Alert Level of Consciousness Questions: Answers both questions correctly Level of Consciousness Commands: Performs both tasks correctly Best Gaze: Normal Visual: No visual loss Facial Palsy: Normal Motor Arm (Right): No drift Motor Arm (Left): No drift Motor Leg (Right): No drift Motor Leg (Left): No drift Limb Ataxia: Absent Sensory: Normal Best Language: No aphasia Dysarthia: Normal Extinction and Inattention: No abnormality Score: 0 Course Course Course Narrative: * Labs notable for troponin of 7.1 > will obtain repeat 3 hour, labs otherwise unremarkable * 1355- head CT showing small acute lacunar infarct > did not receive a call from radiology. Patient remains asymptomatic without any neuro deficits > neurology paged NIHSS = 0 * Spoke to Dr. Sanchez, recommended admission, aspirin (which patient already took this morning), an MRI > plan for admission Medical Decision Making MDM Narrative Medical decision making narrative: 55-year-old male with a past medical history of GERD, hypertension, BC, psoriasis, UC, sleep apnea on CPAP presenting to the ED complaining of headache with assoc blurry vision this morning around 5:00 a.m. while getting ready for work. Admits took blood pressure and was elevated 160s/100s. Also reports left arm pain since yesterday. On exam VSS, NAD, asymptomatic at present, no focal neuro deficits. Low concern for hypertensive emergency/urgency. ?Migraine headache, lower concern for CVA/TIA without other symptoms. Rule out ACS Plan: EKG, labs, head CT, reassess Lab Data Result diagrams: 07/15/20 11:42 07/15/20 11:42 Labs: Lab Results 07/15/20 07/15/20 07/15/20 Range/Units 11:42 11:42 11:42 WBC 6.5 (4.8-10.8) X10*3/uL RBC 5.13 (4.60-5.80) X10*6/uL Hgb 15.1 (14.0-18.0) g/dl Hct 45.2 (42-52) % MCV 88.1 (80-98) fL MCH 29.4 (27.0-33.0) pg MCHC 33.4 (31.0-36.0) g/dl RDW 13.5 (11.0-16.0) % Plt Count 212 (160-400) X10*3/uL MPV 9.3 L (9.4-12.4) fL Immature Gran % (Auto) 0.3 (0.0-0.4) % Neut % (Auto) 59.8 (45-73) % Lymph % (Auto) 28.1 (20-40) % [place] % (Auto) 10.1 (2-11) % Eos % (Auto) 1.4 (0-4) % Baso % (Auto) 0.3 (0-2) % Lymph # (Auto) 1.8 (1.2-4.9) X10*3/uL [place] # (Auto) 0.7 (0.1-1.2) X10*3/uL Eos # (Auto) 0.1 (0.0-0.4) X10*3/uL Baso # (Auto) 0.0 (0.0-0.2) X10*3/uL Abs Immat Gran (auto) 0.02 (0.00-0.03) X10*3/uL Absolute Neuts (auto) 3.9 (2.0-8.3) X10*3/uL Absolute Nucleated RBC 0.000 (0.0-0.012) X10*3/uL Nucleated RBC % (auto) 0.0 (0.0-0.2) /100WBC Hold Blue Top SEE NOTE Sodium 140 (135-145) mmol/L Potassium 4.6 (3.3-5.1) mmol/l Chloride 102 (96-108) mmol/L Carbon Dioxide 32 H (22-29) mmol/L Anion Gap 11 L (12-20) BUN 20 H (9-16) mg/dL Creatinine 1.05 (0.5-1.4) mg/dL Estim Creat Clear Calc 93.5 Estimated GFR > 60 Random Glucose 103 (60-115) mg/dL Calcium 9.2 D (8.4-10.2) mg/dL Magnesium 2.1 (1.6-2.6) mg/dL Total Bilirubin 0.3 (0.0-1.0) mg/dL Direct Bilirubin < 0.2 (0.0-0.5) mg/dL AST 22 (5-37) U/L ALT 32 (0-40) U/L Alkaline Phosphatase 56 (39-117) U/L Troponin I High Sens (<3.5-35.0) ng/L Total Protein 7.0 (6.5-8.0) g/dL Albumin 4.2 (3.5-5.0) g/dL 07/15/20 Range/Units 11:42 WBC (4.8-10.8) X10*3/uL RBC (4.60-5.80) X10*6/uL Hgb (14.0-18.0) g/dl Hct (42-52) % MCV (80-98) fL MCH (27.0-33.0) pg MCHC (31.0-36.0) g/dl RDW (11.0-16.0) % Plt Count (160-400) X10*3/uL MPV (9.4-12.4) fL Immature Gran % (Auto) (0.0-0.4) % Neut % (Auto) (45-73) % Lymph % (Auto) (20-40) % [place] % (Auto) (2-11) % Eos % (Auto) (0-4) % Baso % (Auto) (0-2) % Lymph # (Auto) (1.2-4.9) X10*3/uL [place] # (Auto) (0.1-1.2) X10*3/uL Eos # (Auto) (0.0-0.4) X10*3/uL Baso # (Auto) (0.0-0.2) X10*3/uL Abs Immat Gran (auto) (0.00-0.03) X10*3/uL Absolute Neuts (auto) (2.0-8.3) X10*3/uL Absolute Nucleated RBC (0.0-0.012) X10*3/uL Nucleated RBC % (auto) (0.0-0.2) /100WBC Hold Blue Top Sodium (135-145) mmol/L Potassium (3.3-5.1) mmol/l Chloride (96-108) mmol/L Carbon Dioxide (22-29) mmol/L Anion Gap (12-20) BUN (9-16) mg/dL Creatinine (0.5-1.4) mg/dL Estim Creat Clear Calc Estimated GFR Random Glucose (60-115) mg/dL Calcium (8.4-10.2) mg/dL Magnesium (1.6-2.6) mg/dL Total Bilirubin (0.0-1.0) mg/dL Direct Bilirubin (0.0-0.5) mg/dL AST (5-37) U/L ALT (0-40) U/L Alkaline Phosphatase (39-117) U/L Troponin I High Sens 7.1 (<3.5-35.0) ng/L Total Protein (6.5-8.0) g/dL Albumin (3.5-5.0) g/dL Discharge Plan Discharge Clinical Impression: Acute lacunar infarction Patient Disposition: Admitted As Inpatient
[2020-07-15 12:18] LABS: Alanine Aminotransferase 32 U/L (0-40); Albumin Level 4.2 g/dL (3.5-5.0); Alkaline Phosphatase 56 U/L (39-117); Anion Gap 11 (12-20); Aspartate Amino Transferase 22 U/L (5-37); Bilirubin Direct < 0.2 mg/dL (0.0-0.5); Bilirubin Total 0.3 mg/dL (0.0-1.0); Blood Urea Nitrogen 20 mg/dL (9-16); Calcium 9.2 mg/dL (8.4-10.2); Carbon Dioxide 32 mmol/L (22-29); Chloride 102 mmol/L (96-108); Creatinine Clr Calc Pharmacy 93.5; Estimated Glomerular Filt Rate > 60; Glucose Random 103 mg/dL (60-115); Magnesium 2.1 mg/dL (1.6-2.6); Potassium 4.6 mmol/l (3.3-5.1); Sodium 140 mmol/L (135-145)
[2020-07-15 12:24] LABS: Troponin-I High Sensitivity 7.1 ng/L (<3.5-35.0)
--- NOTE | 2020-07-15 16:31 | HP_ITS ---
DATE OF SERVICE: 07/15/2020 CHIEF COMPLAINT: Headache. HISTORY OF PRESENT ILLNESS: A 55-year-old man, who presented to the ER with complaints of headache and visual changes around 5 o'clock this morning. He woke up feeling fine. He went to take a shower and as he was getting dressed, he developed these symptoms. He denied any chest pain, shortness of breath, nausea, vomiting, loss of consciousness, or weakness, although he did report some muscle pain to his left arm. He reported that he took his blood pressure this morning and that was 165/101, which he reported was usually high for him. He is usually around 120s to 130 systolic. He reported that he is compliant with his medications, but missed his blood pressure medicine last night. He took 2 baby aspirin while at home. Upon arrival to the ER, his blood pressure actually was looked okay at 145/79. All of his other vital signs were stable. His labs also were within acceptable limits. Initial troponin was 7.1. Brain CT did show a small lacunar infarct to the left deep white matter in the left frontal lobe while here. He had already received aspirin at home, therefore, he was not given any medications in the ER. He will be admitted for further management and treatment of acute stroke. PAST MEDICAL HISTORY: 1. Hypertension. 2. Colitis. 3. Psoriasis. 4. History of sleep apnea, on CPAP. 5. Obesity. 6. Chronic back pain. PAST SURGICAL HISTORY: Denies. FAMILY HISTORY: Father had coronary artery disease and from colon cancer. SOCIAL HISTORY: Denies any alcohol, tobacco, or illicit drug use. Lives alone. 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 MEDICATIONS: 1. Lisinopril 20 mg daily. 2. Metoprolol 25 mg twice daily. REVIEW OF SYSTEMS: CONSTITUTIONAL: Denies any recent fever, chills, o decrease in appetite. RESPIRATORY: Denies any shortness of breath, cough, or sputum production. CARDIOVASCULAR: Denies any chest pain, orthopnea, PND, or edema. GASTROINTESTINAL: Denies any dysphagia, abdominal pain, nausea, vomiting, or diarrhea. GENITOURINARY: Denies any dysuria, frequency, or hematuria. MUSCULOSKELETAL: Denies any joint pain or swelling. NEUROPSYCH: Denies any weakness or seizures. All other systems are reviewed and are negative. PHYSICAL EXAMINATION: CONSTITUTIONAL: Resting in bed, appears to be in no acute distress. VITAL SIGNS: 98, 66, 18, 131/70, and 98% on room air. SKIN: Intact without rashes or open sores. HEENT: Head is normocephalic and atraumatic. Eyes, pupils are PERRLA. Sclerae anicteric. Mouth and throat, mucous membranes are intact and moist. NECK: Supple. No lymphadenopathy. No JVD noted. CHEST: Clear to auscultation without wheezes, rhonchi, or rales. HEART: Regular rate and rhythm. Clear S1 and S2. No murmurs, rubs, or gallops. ABDOMEN: Positive bowel sounds. Soft and nontender. No hepatomegaly or splenomegaly noted. NEURO: The patient is alert and oriented x3. No focal deficits noted. LABORATORY DATA: WBC 6.5, hemoglobin 15.1, hematocrit 45.2, and platelets 212. Sodium is 140, potassium is 4.6, chloride is 102, BUN is 20, and creatinine is 1.05. ASSESSMENT AND PLAN: A 55-year-old man being admitted with what appears to be an acute stroke. No history of stroke in the past. He does have a history of hypertension and had elevated blood pressure this morning. 1. Acute Lacunar Stroke. follow blood pressure, neurochecks. We will obtain MRI, Neurology to follow, aspirin, statin. Obtain echocardiogram, carotid Doppler, lipid profile follow blood sugars,physical therapy, and stroke education.obtain neuro consult. 2. Hypertension. Continue lisinopril and metoprolol,monitor blood pressure closley. 3. Obstructive sleep apnea, on CPAP. 4. Deep vein thrombosis prophylaxis with subcutaneous heparin. 5. Case discussed with Dr. Pinzon. 6. FULL CODE. RENETTA Cesar MD JR/JOCELYNE / [id number] MTDD
[2020-07-15] MEDS: Butalb/Acetamin/Caff 50/325/40 TABLET 1 TAB PO (17:04)
--- NOTE | 2020-07-15 17:53 | P.EN_ITS ---
Event Note Date of Service: 07/16/20 Event Note: Patient seen examined with APC, 55-year-old patient with past [facility] history significant for hypertension, obesity, sleep apnea on CPAP, presented with headache, dizziness and blurred visions since 05:00, a.m. patient blood pressure at home was 165/101 since he skipped his blood pressure medication last evening patient took 2 baby aspirin and came to the emergency room where he was noted to have a blood pressure 145/[address] scan of the brain showed a small lacunar infarction to the left deep white matter in the left frontal lobe. On examination patient awake alert Neuro nonfocal Assessment and plan Acute lacunar infarction likely due to uncontrolled blood pressure will admit patient close monitoring and further evaluation will check lipid profile blood sugar and adjust blood pressure medication for better blood pressure control, continue neuro check and obtain Neuro eval for further recommendation.
[2020-07-15 18:20] LABS: COVID-19 Test Negative (Negative); IDNOW Serial# 9DD0AD1C
[2020-07-15 18:33] LABS: Troponin-I High Sensitivity 5.2 ng/L (<3.5-35.0)
--- NOTE | 2020-07-15 20:52 | PC.NURSE ---
pt awake and alert, reports he is no longer feeling dizziness or headache. pt answering questions with clear speech. pt reports he has been able to stand without dizziness since he has been in er. pt understands he is being admitted to r/o stroke and plans for an mri tmrw.
--- NOTE | 2020-07-15 21:51 | PC.NURSE ---
second call to floor for report, awaiting call back.
[2020-07-15] MEDS: Famotidine 20 MG TABLET PO (23:18)
[2020-07-15] MEDS: Atorvastatin Calcium 40 MG TABLET PO (23:18)
[2020-07-15] MEDS: Metoprolol Tartrate 25 MG TABLET PO (23:19)
[2020-07-15] MEDS: Heparin Sodium,Porcine 5,000 UNIT/ML VIAL 5000 UNIT SUBCUT (23:21)
[2020-07-15] MEDS: 0.9 % Sodium Chloride Flush 3 ML SYRINGE IVFLUSH (23:53)
--- NOTE | 2020-07-16 | US_ITS ---
EXAMINATION: US EXTRACRANIAL CAROTID DUPLEX, BILATERAL CLINICAL INFORMATION: Stroke. COMPARISON: None TECHNIQUE: Real-time ultrasound and Doppler techniques (integrating B-mode 2-D vascular images, Doppler spectral analysis and color-flow Doppler imaging) were utilized to interrogate the extracranial carotid arteries, the vertebral arteries and proximal subclavian arteries bilaterally. The degree of stenosis is determined by criteria similar to NASCET. FINDINGS: No significant atherosclerotic plaque was seen bilaterally. Color Doppler interrogation demonstrated normal arterial waveforms with brisk systolic upstrokes. No tardus parvus waveform was identified. Arterial velocities were as follows in cm/s: RIGHT: Proximal CCA: 114 Distal CCA: 99 Proximal ICA: 76 Mid ICA: 86 Distal ICA: 117 ECA: 104 LEFT: Proximal CCA: 138 Distal CCA: 120 Proximal ICA: 115 Mid ICA: 84 Distal ICA: 92 ECA: 130 The vertebral arteries demonstrated normal arterial waveforms and direction of flow. US/US carotid duplex BI IMPRESSION: No hemodynamically significant arterial stenosis bilaterally.
[2020-07-16 04:00] VITALS: BP 131/74; PULSE 67; RESP 18; TEMP 37.4; O2SAT 98
[2020-07-16 06:37] LABS: MANUAL DIFF FLAG NO
[2020-07-16 06:48] LABS: Basophils Percent Auto 0.3 % (0-2); Eosinophils Percent Auto 0.6 % (0-4); Hematocrit 45.8 % (42-52); Hemoglobin 15.3 g/dl (14.0-18.0); Imm Gran Abs Auto 0.02 X10*3/uL (0.00-0.03); Imm Gran Pct Auto 0.3 % (0.0-0.4); Lymphocytes Absolute Auto 1.6 X10*3/uL (1.2-4.9); Mean Corpuscular HGB Conc 33.4 g/dl (31.0-36.0); Mean Corpuscular Hemoglobin 29.1 pg (27.0-33.0); Mean Corpuscular Volume 87.1 fL (80-98); Mean Platelet Volume 9.7 fL (9.4-12.4); Monocytes Absolute Auto 0.6 X10*3/uL (0.1-1.2); Monocytes Percent Auto 8.8 % (2-11); Neutrophils Absolute Auto 4.4 X10*3/uL (2.0-8.3); Platelet Count 235 X10*3/uL (160-400); Red Blood Count 5.26 X10*6/uL (4.60-5.80); Red Cell Distribution Width 13.5 % (11.0-16.0); White Blood Count 6.6 X10*3/uL (4.8-10.8)
[2020-07-16 07:06] LABS: Anion Gap 13 (12-20); Blood Urea Nitrogen 17 mg/dL (9-16); Calcium 9.2 mg/dL (8.4-10.2); Carbon Dioxide 29 mmol/L (22-29); Chloride 99 mmol/L (96-108); Cholesterol 185 mg/dL; Creatinine Clr Calc Pharmacy 114.2; Estimated Glomerular Filt Rate > 60; Glucose Random 101 mg/dL (60-115); HDL Cholesterol 50 mg/dL; LDL Cholesterol Calculated 111 mg/dl; Potassium 4.3 mmol/l (3.3-5.1); Sodium 137 mmol/L (135-145); Triglycerides 123 mg/dL
[2020-07-16 07:11] LABS: Cholesterol 182 mg/dL; HDL Cholesterol 50 mg/dL; LDL Cholesterol Calculated 108 mg/dl; Triglycerides 121 mg/dL
[2020-07-16 07:34] VITALS: BP 153/89; PULSE 69; RESP 20; TEMP 36.6; O2SAT 99
--- NOTE | 2020-07-16 08:00 | CA_ITS ---
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 The visually estimated ejection fraction is between 55-60%. - No obvious valvular pathology seen on this study. Findings Left Ventricle Normal left ventricular cavity size. There is mildly increased left ventricular wall thickness. The left ventricular systolic function is normal. The visually estimated ejection fraction is between 55-60%. There is no evidence of regional wall motion abnormalities. Diastolic function is normal for age. Right Ventricle Normal right ventricular cavity size and systolic function. Atria The left atrium is normal in size. The right atrium is normal in size. Aortic Valve There is a normal trileaflet aortic valve. There is no aortic valve stenosis. There is no aortic valve regurgitation. Mitral Valve The mitral valve appears normal. There is no mitral valve regurgitation. There is no mitral valve stenosis. Pulmonic Valve The pulmonic valve is normal. Tricuspid Valve Normal tricuspid valve structure. There is trace tricuspid valve regurgitation. The pulmonary artery systolic pressure is normal. Great Vessels The aortic annulus, sinuses of valsalva, and asc aorta are normal in size. Venous The inferior vena cava is normal in size and collapses greater than 50% with inspiration. Pericardium/Pleural There is no evidence of pericardial effusion. Prior Study Comparison No prior study available for comparison. Recommendations, Care & Conclusions No obvious valvular pathology seen on this study. Measurements 2D Linear Measurements IVSd: 1.05 0.6-0.9/0.6-1.0 cm LVIDd: 4.71 3.9-5.3/4.2-5.9 cm LVIDd Index: 2.16 2.4-3.2/2.2-3.1 cm/m2 LVIDs: 2.81 2.0-3.6 cm LVPWd: 1.03 0.7-1.1 cm Ao Root: 3.50 2.1-3.5 cm LA Diam: 4.10 2.7-3.8/3.0-4.0 cm LAIDs Index: 1.88 1.5-2.3 cm/m2 LV Mass: 216.90 67-162/88-224 g LV Mass Index: 99.50 43-95/49-115 g/m2 LVOT Diam: 2.10 3.0+(-)1.3 cm 2D Systolic Function EF 4C: 59.60 >55% EF 2C: 56.70 >55% EF BiP: 58.10 >55% Mitral Valve MV Pk E: 0.66 MV PK A: 0.96 MV Decel Time: 292.00 E/A: 0.70 E'Lateral: 6.87 E'Medial: 4.06 E/E' Med: 16.30 E/E' Lat: 9.60 PHT: 86.00 MVA PHT: 2.56 Decel [place]: 2.26 Aortic Valve AoV Pk Seng: 1.49 AoV Mn Seng: 1.02 AoV VTI: 0.28 AoV Pk Grad: 9.00 Aov Mn Grad: 5.00 MELANIE Cont.VTI: 2.61 LVOT LVOT Pk Seng: 0.97 LVOT Mn Seng: 0.67 LVOT VTI: 0.21 LVOT Pk Grad: 4.00 LVOT Mn Grad: 2.00 LVOT Diam: 2.10 LVOT Area: 3.46 Diastolic Function MV Pk E: 0.66 MV Pk A: 0.96 E/A: 0.70 E'Medial: 4.06 E/E' Med: 16.30 E' Laterial: 6.87 E/E' Lat: 9.60 Great Vessels Aorta Ao Root-2D: 3.50 2.0-3.7 cm Ao Asc: 3.50 2.1-3.4 cm Ao Arch: 3.10 Updated in Other Vendor System with Status of Final David Crain MD electronically signed on 07/16/2020 10:50:01 AM with status of Final
[2020-07-16] MEDS: Multivitamin TABLET 1 TAB PO (10:16)
[2020-07-16] MEDS: Metoprolol Tartrate 25 MG TABLET PO (10:16)
[2020-07-16] MEDS: lisinopriL 20 MG TABLET PO (10:16)
[2020-07-16] MEDS: Heparin Sodium,Porcine 5,000 UNIT/ML VIAL 5000 UNIT SUBCUT (10:16)
[2020-07-16] MEDS: Famotidine 20 MG TABLET PO (10:17)
[2020-07-16] MEDS: Aspirin 81 MG TAB.CHEW PO (10:17)
[2020-07-16] MEDS: 0.9 % Sodium Chloride Flush 3 ML SYRINGE IVFLUSH ×2 (10:18→15:40)
[2020-07-16] MEDS: Acetaminophen 325 MG TABLET 650 MG PO ×2 (10:25→19:31)
[2020-07-16 11:00] VITALS: BP 140/83; PULSE 74; RESP 20; TEMP 36.7; O2SAT 94
--- NOTE | 2020-07-16 11:24 | MHC.CM.PN ---
dc plan home no servceis pt has own transportyaion home physical therapy dcd pt no needs identified
[2020-07-16 11:39] VITALS: BMI 37.5
--- NOTE | 2020-07-16 12:41 | MHC.STROKE ---
Addendum entered by Michelle Capellan RN 07/16/20 16:40: I MET WITH THE PATIENT AND WE DISCUSSED THE MRI DWI REPORT, NO ACUTE STROKE IDENTIFIED. WE AGAIN REVIEWED HIS RISK FACTORS AND THE IMPORTANCE OF CONTROLLING HIS HIGH BLOOD PRESSURE AND GETTING A SLEEP APNEA MACHINE. IT IS ANTICIPATED THAT HE WILL BE DISCHARGED THIS EVENING PER DR VALDEZ. Original Note: WALK IN AT 07/15/20 0946, C/O DIZZY AND BLURRED VISION. HE GOT UP FOR WORK AND WAS GETTING READY TO LEAVE AND AT 0500 ALL OF A SUDDEN HE DIZZINESS AND BLURRED VISION. HE TOOK HIS BLOOD PRESSURE AND IT WAS 160/104. THE VISION GOT BETTER. HE WAITED AND CAME TO THE ED ALMOST 6 HOURS LATER. EXCLUDED FROM TPA DUE TO DELAY IN ARRIVAL AND NIHSS = 0. CT DONE ? NEW LEFT FRONTAL INFARCT. HE MENTIONED THAT HE WAS TOLD HE HAD AN OLD STROKE FROM A DOCTOR FROM [facility] IN THE PAST. HE HAS SLEEP APNEA AND HIS MACHINE IS BROKEN, HE WAS TOLD HE NEEDS ANOTHER MACHINE. HE ALSO HAS A HISTORY OF MIGRAINES, RESTLESS LEG, HTN, OBESITY. HE HAS HAD A CONSULTATION FOR BARIATRIC SURGERY AND AN APPOINTMENT ON 07/20/20. 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 WE REVIEWED ALL HIS RISK FACTORS. I USED THE POWER POINT HANDOUTS AND EDUCATION BOOKLET. I ANSWERED ALL HIS QUESTIONS. MRI PENDING. HE PASSED HIS SWALLOW SCREEN. ALL STROKE MEASURES MET. I WILL CONTINUE TO FOLLOW.
--- NOTE | 2020-07-16 15:28 | P.CNNE_ITS ---
History of Present Illness Data of Consult Service Date: 07/16/20 Primary Care Provider: Nilsa Pruitt MD HPI Reason for consult: Episode of dizziness and visual disturbance This is a 55-year-old male with a history of hypertension and sleep apnea and GERD who presented with the sudden onset of dizziness and visual disturbance which has since resolved. He had a CT scan followed by an MRI which does not show any acute infarct but current problems and old lacunar infarct in the left centrum semiovale. His carotid Doppler does not show any hemodynamically significant stenosis. His blood pressure has been normal. His gait and balance is normal and he has no dizziness or visual disturbance at this time. Review of Systems Eyes: Eyes: Reports no additional eye complaints ENT: Reports system reviewed and no additional complaints, except as documented and Reports Normal hearing present Cardiovascular: Cardiovascular: Reports no additional cardiovascular complaints Respiratory: Respiratory: Reports no additional respiratory complaints Gastrointestinal: Gastrointestinal: Reports no additional gastrointestinal complaints Genitourinary: Genitourinary: Reports no additional male genitourinary complaints Musculoskeletal: Musculoskeletal: Reports no additional musculoskeletal complaints Integumentary/Breasts: Skin/Breast: Reports system reviewed and no additional complaints, except as docu Neurologic: Reports as per HPI and Reports Normal hearing present Psychiatric: Psychiatric: Reports as per HPI Endocrine: Endocrine: Reports no additional endocrine complaints Hematologic/Lymphatic: Hematologic/Lymphatic: Reports no additional hematologic/lymphatic complaints Allergic/Immunologic: Allergic/Immunologic: Reports no additional allergic/immunologic complaints [facility] Past Medical History Medical History (Updated 07/16/20 @ 15:32 by Kashif Bloom MD) Back pain GERD (gastroesophageal reflux disease) Hypertension Obesity Psoriasis Sleep apnea with use of continuous positive airway pressure (CPAP) Ulcerative colitis Family History Family History Father No problems noted. Mother No problems noted. Sister No problems noted. Sister No problems noted. Sister Kidney replaced by transplant Brother No problems noted. Brother No problems noted. Brother No problems noted. Brother Diabetes Son No problems noted. Daughter No problems noted. Surgical History Surgical History No pertinent past surgical history Social History Social History Household Members: None Housing: Apartment Do you presently have visiting nurse or other home services: No Alcohol intake: never Smoking Status: Never smoker Use of substances other than those prescribed or required for medical reasons: No Currently Displaying Signs/Symptoms of Drug Intoxication Withdrawal: No Have you been hit, kicked, punched, or otherwise hurt by someone within the past year? If so, by whom?: No Do you feel safe in your current relationship?: No Current Relationship Is there a partner from a previous relationship who is making you feel unsafe now?: No Are you made to feel afraid or neglected: No Advance Directives: No Advance Directives Information Provided: Yes Do you have thoughts of harming others: None Do you have a plan to hurt others: No Plan Recently lost weight without trying: No service: No Meds Allergies Allergy/AdvReac Type Severity Reaction Status Date / Time No Known Allergies Allergy Verified 07/02/20 10:25 [No Known Allergies*] Home Medications Medication Instructions Recorded Confirmed Type lisinopril 1 tab PO DAILY 05/24/20 07/15/20 History metoprolol tartrate 1 tab PO BID 05/24/20 07/15/20 History clobetasol 1 appl TOPICAL BID 07/15/20 07/15/20 History docusate sodium [Colace] 100 mg PO DAILY 07/15/20 07/15/20 History famotidine 20 mg PO BID 07/15/20 07/15/20 History multivitamin 1 tab PO DAILY 07/15/20 07/15/20 History triamcinolone acetonide 1 appl TOPICAL BID 07/15/20 07/15/20 History Physical Exam Vital Signs: Vital Signs: Last Vital Signs Temp 98.0 F 07/16/20 11:00 Pulse 74 07/16/20 11:00 Resp 20 07/16/20 11:00 BP 140/83 H 07/16/20 11:00 Pulse Ox 94 07/16/20 11:00 Body Mass Index 37.5 Const: General: cooperative, comfortable, no acute distress, well developed, alert and awake Nutritional Appearance: well nourished Orientation/ consciousness: oriented to person, oriented to place and oriented to time Limitations: no limitations HENMT: Head: Yes normal to inspection, Yes normocephalic and Yes atraumatic Ears: hearing grossly normal bilaterally General nose exam: Normal external nose present Face and sinus: Yes normal facial exam Mouth: Normal oral and palatal mucosa present Eyes: General: appearance normal, both eyes and all related structures Visual Hernandez: normal visual hernandez by confrontation Alignment and Position: alignment normal Periorbital: periorbital findings normal Eyelids: Yes eyelids normal Conjunctivae: conjunctivae normal Sclerae: sclerae normal Corneas: corneas normal Pupils: Equal, round and reactive pupils present and Pupil accommodation reflex normal EOM: EOMs intact bilaterally Direct Ophthalmoscopy: normal light reflex Neck: Neck: Yes normal visual inspection, Yes full ROM and Yes no meningeal signs Thyroid: Thyroid normal Carotids: normal carotid upstroke and boun ding pulses Chest: Chest palpation & inspection: normal inspection of the chest Resp: Effort & Inspection: normal respiratory effort Auscultation: clear to auscultation bilaterally Cardio: Rate: regular rate Rhythm: regular rhythm Heart sounds: S1 normal heart sound present and S2 normal heart sound present Peripheral pulses: Peripheral pulses 2+ throughout GI: Inspection: Yes normal to inspection Percussion: Yes normal to percussion Auscultation: normal bowel sounds Rectal Exam - Male: Yes deferred Back/Spine/Pelvis: Cervical Spine: normal cervical lordosis and cervical ROM normal Thoracic/Lumbar Spine: thoracic and lumbar spine normal to inspection Skin: General skin exam: no rashes or lesions noted Neuro: General: oriented to person, oriented to place, oriented to time, gait normal, tone normal, moves all extremities, Normal light touch and pain sensation, no meningeal signs, no focal motor deficits, CN's II-XI intact bilaterally, normal sensation to monofilament and deep tendon reflexes 2+ bilaterally Cranial nerves: Yes CN's II-XII intact bilaterally, Yes Equal, round and reactive pupils present, Yes Bilaterally intact EOM present, Yes Nystagmus not present, Yes Normal facial strength present, Yes Midline tongue present, Yes Normal gag reflex present, Yes Symmetric palate elevation present, Yes Normal hearing present and Yes Ability to bilaterally rotate head present Cognition (Neuro): normal cognition Speech: Other speech findings present (Neuro) Gait exam (Neuro): Normal gait present Motor exam (neuro): 5/5 motor strength present throughout, Pronator motor function not present, no tremor noted, no asterixis, Motor fasciculations not present, Normal motor muscle tone present throughout and Motor abnormalities not present Sensory Exam: Bilaterally intact graphesthesia Deep tendon reflexes (DTR's): Right triceps reflex intensity grade: 2+, Left triceps reflex intensity grade: 2+, Rt Biceps (C5, C6): 2+, Left biceps reflex intensity grade: 2+, Right brachiorad ialis reflex intensity grade: 2+, Left brachioradialis reflex intensity grade: 2+, Right patellar reflex intensity grade: 2+, Left patellar reflex intensity grade: 2+, Right ankle reflex intensity grade: 2+ and Left ankle reflex intensity grade: 2+ Plantar Reflex Responses: downgoing: right, left and bilateral Coordination: [id number] test normal, [id number] test normal, tandem gait normal and Romberg test negative Pupils: Normal pupillary r eactivity/response: bilateral Extrem: General: Yes normal to inspection, Yes normal exam except as noted and Yes no pedal edema Psych: Appearance: grossly normal Mental Status: mental status grossly normal Speech and movement: Normal speech and movement present and Clear speech present Affect: normal affect Attitude: cooperative Thought process: Normal thought process present Results Labs CBC & Chem 7: 07/16/20 06:15 07/16/20 06:15 Labs: Short CBC 07/16/20 Range/Units 06:15 WBC 6.6 (4.8-10.8) X10*3/uL Hgb 15.3 (14.0-18.0) g/dl Hct 45.8 (42-52) % Plt Count 235 (160-400) X10*3/uL BMP 07/16/20 06:15 Sodium 137 Potassium 4.3 Chloride 99 Carbon Dioxide 29 BUN 17 H Creatinine 0.86 Calcium 9.2 Assessment and Plan (1) Dizziness: Problem details: He has small vessel hypertensive disease with an old lacunar infarct Status: Acute Blood pressure control. Aspirin 81 mg. Meclizine 25 mg every 8 hours when necessary for dizziness (2) Lacunar infarction: Problem details: This is a chronic lacunar infarct in the left centrum semiovale Status: Acute
[2020-07-16 15:50] VITALS: BP 108/65; PULSE 80; RESP 19; TEMP 35.8; O2SAT 98
--- NOTE | 2020-07-16 16:38 | P.DS_ITS ---
DS: Providers Provider Date of admission: 07/15/20 19:30 Primary care physician: Nilsa Pruitt MD Consults: 07/16/20 08:16 Consult to Neurology Routine Consulting Provider: [facility] Reason for consultation: lacunar infarct Has provider been notified: No DS: Diagnosis Discharge Diagnosis (1) Dizziness: Status: Acute (2) Lacunar infarction: Status: Chronic (3) GERD (gastroesophageal reflux disease): Status: Acute (4) Ulcerative colitis: Status: Acute (5) Psoriasis: Status: Acute (6) Sleep apnea with use of continuous positive airway pressure (CPAP): Status: Acute (7) Hypertension: Status: Acute (8) BMI 37.0-37.9, adult: Status: Acute (9) Obesity: Status: Acute DS: Medications Discharge Medications Home Medications: Home Medications Medication Instructions Recorded Confirmed lisinopril 1 tab PO DAILY 05/24/20 07/15/20 metoprolol tartrate 1 tab PO BID 05/24/20 07/15/20 clobetasol 1 appl TOPICAL BID 07/15/20 07/15/20 docusate sodium [Colace] 100 mg PO DAILY 07/15/20 07/15/20 famotidine 20 mg PO BID 07/15/20 07/15/20 multivitamin 1 tab PO DAILY 07/15/20 07/15/20 triamcinolone acetonide 1 appl TOPICAL BID 07/15/20 07/15/20 Previous Rx's Medication Instructions Recorded aspirin 81 mg PO DAILY #30 tab 07/16/20 DS: Summary Hospital Course Hospital Course: 55-year-old male with a history of hypertension and sleep apnea and GERD who presented with the sudden onset of dizziness and visual disturbance which has since resolved. He had a CT scan followed by an MRI which does not show any acute infarct but current problems and old lacunar infarct in the left centrum semiovale. His carotid Doppler does not show any hemodynamically significant stenosis. His blood pressure has been normal. His gait and balance is normal and he has no dizziness or visual disturbance at this time. Hospital course Dizziness with blurred vision patient CT scan in the emergency room showed an acute lacunar infarction in the left centrum semiovale therefore patient was admitted for further workup and was continued on antihypertensive medication and placed on aspirin, patient underwent extensive workup including an echocardiogram that showed normal systolic and diastolic function, carotid ultrasound revealed no hemodynamically significant stenosis and MRI of the brain showed a chronic lacunar infarction in the left centrum semiovale patient seen by Urology he recommend better blood pressure control and recommended aspirin 81 mg daily, patient dizziness is completely resolved his neuro examination is intact therefore patient is being discharged home with strong recommendation to lose weight follow low-cholesterol diet and exercise patient also recommended to be compliant with his antihypertensive medication Patient is being discharged home on all of his baseline medication and aspirin 81 mg daily has been added. Chronic lacunar infarction in the left centrum semiovale. Time Spent with Patient Time attestation: Total time spent providing and/or coordinating discharge services: Quality: Stroke Pt Provided Written Stroke Discharge Instructions: Patient given written information Physical Exam Vital Signs: Vital Signs: Last Vital Signs Temp 96.4 F L 07/16/20 15:50 Pulse 80 07/16/20 15:50 Resp 19 07/16/20 15:50 BP 108/65 07/16/20 15:50 Pulse Ox 98 07/16/20 15:50 Body Mass Index 37.5 General patient resting comfortably in no acute distress. Neck supple no JVD. CVS regular rate rhythm, Respiratory lungs clear to auscultation, no respiratory distress Gastrointestinal abdomen soft, nontender, bowel sounds audible. Extremities no clubbing cyanosis or edema. Neuro nonfocal Skin no rash DS: Data Data Completed and Pending Labs on day of discharge: 07/15/20 10:56 ECG 12 lead EKG Stat EKG Documentation DIRECTED CT head/brain wo con Stat 07/15/20 11:42 Basic Metabolic Panel Stat Complete Blood Count Auto Diff Stat Hold Lt Blue - Possible Coag Stat Liver Panel Stat Magnesium Stat Troponin-I High Sensitivity Stat 07/15/20 16:51 Butalb/Acetamin/Caff 50/325/40 [Fioricet] 1 tab PO ONCE ONE 07/15/20 17:14 COVID-19 ID NOW (Mendes) Stat 07/15/20 17:35 Troponin-I High Sensitivity Stat 07/15/20 19:24 Transfer Order Routine 07/16/20 US carotid duplex BI Routine 07/16/20 06:15 Basic Metabolic Panel DAILY@0600 Complete Blood Count Auto Diff DAILY@0600 Lipid Panel Routine Lipid Panel Routine 07/16/20 08:00 CA echo transthoracic complete Routine 07/16/20 22:30 MR head/brain wo con Routine Laboratory Last Values WBC 6.6 X10*3/uL (4.8-10.8) 07/16/20 06:15 RBC 5.26 X10*6/uL (4.60-5.80) 07/16/20 06:15 Hgb 15.3 g/dl (14.0-18.0) 07/16/20 06:15 Hct 45.8 % (42-52) 07/16/20 06:15 MCV 87.1 fL (80-98) 07/16/20 06:15 MCH 29.1 pg (27.0-33.0) 07/16/20 06:15 MCHC 33.4 g/dl (31.0-36.0) 07/16/20 06:15 RDW 13.5 % (11.0-16.0) 07/16/20 06:15 Plt Count 235 X10*3/uL (160-400) 07/16/20 06:15 MPV 9.7 fL (9.4-12.4) 07/16/20 06:15 Immature Gran % (Auto) 0.3 % (0.0-0.4) 07/16/20 06:15 Neut % (Auto) 66.0 % (45-73) 07/16/20 06:15 Lymph % (Auto) 24.0 % (20-40) 07/16/20 06:15 Richardson % (Auto) 8.8 % (2-11) 07/16/20 06:15 Eos % (Auto) 0.6 % (0-4) 07/16/20 06:15 Baso % (Auto) 0.3 % (0-2) 07/16/20 06:15 Lymph # (Auto) 1.6 X10*3/uL (1.2-4.9) 07/16/20 06:15 Richardson # (Auto) 0.6 X10*3/uL (0.1-1.2) 07/16/20 06:15 Eos # (Auto) 0.0 X10*3/uL (0.0-0.4) 07/16/20 06:15 Baso # (Auto) 0.0 X10*3/uL (0.0-0.2) 07/16/20 06:15 Abs Immat Gran (auto) 0.02 X10*3/uL (0.00-0.03) 07/16/20 06:15 Absolute Neuts (auto) 4.4 X10*3/uL (2.0-8.3) 07/16/20 06:15 Absolute Nucleated RBC 0.000 X10*3/uL (0.0-0.012) 07/16/20 06:15 Nucleated RBC % (auto) 0.0 /100WBC (0.0-0.2) 07/16/20 06:15 Hold Blue Top SEE NOTE 07/15/20 11:42 Sodium 137 mmol/L (135-145) 07/16/20 06:15 Potassium 4.3 mmol/l (3.3-5.1) 07/16/20 06:15 Chloride 99 mmol/L (96-108) 07/16/20 06:15 Carbon Dioxide 29 mmol/L (22-29) 07/16/20 06:15 Anion Gap 13 (-20) 07/16/20 06:15 BUN 17 mg/dL (9-16) H 07/16/20 06:15 Creatinine 0.86 mg/dL (0.5-1.4) 07/16/20 06:15 Estim Creat Clear Calc 114.2 07/16/20 06:15 Estimated GFR > 60 07/16/20 06:15 Random Glucose 101 mg/dL (60-115) 07/16/20 06:15 Calcium 9.2 mg/dL (8.4-10.2) 07/16/20 06:15 Magnesium 2.1 mg/dL (1.6-2.6) 07/15/20 11:42 Total Bilirubin 0.3 mg/dL (0.0-1.0) 07/15/20 11:42 Direct Bilirubin < 0.2 mg/dL (0.0-0.5) 07/15/20 11:42 AST 22 U/L (5-37) 07/15/20 11:42 ALT 32 U/L (0-40) 07/15/20 11:42 Alkaline Phosphatase 56 U/L (39-117) 07/15/20 11:42 Troponin I High Sens 5.2 ng/L (<3.5-35.0) 07/15/20 17:35 Total Protein 7.0 g/dL (6.5-8.0) 07/15/20 11:42 Albumin 4.2 g/dL (3.5-5.0) 07/15/20 11:42 Triglycerides 121 mg/dL 07/16/20 06:15 Triglycerides 123 mg/dL 07/16/20 06:15 Cholesterol 182 mg/dL 07/16/20 06:15 Cholesterol 185 mg/dL 07/16/20 06:15 LDL Cholesterol, Calc 108 mg/dl 07/16/20 06:15 LDL Cholesterol, Calc 111 mg/dl 07/16/20 06:15 HDL Cholesterol 50 mg/dL 07/16/20 06:15 HDL Cholesterol 50 mg/dL 07/16/20 06:15 COVID-19 (DAVID) Negative (Negative) 07/15/20 17:14 COVID-19 Clin Com See Note 07/15/20 17:14 Discharge Plan Discharge Patient Disposition: Home, Self-Care Referrals: Nilsa Sexton MD [Primary Care Provider] - Discharge Medications: New aspirin 81 mg Tablet,Chewable 81 mg PO DAILY Qty: 30 RF: 0 Continued lisinopril 20 mg tablet 1 tab PO DAILY RF: 0 metoprolol tartrate 25 mg tablet 1 tab PO BID RF: 0 multivitamin Tablet 1 tab PO DAILY RF: 0 famotidine 20 mg Tablet 20 mg PO BID RF: 0 docusate sodium [Colace] 100 mg Capsule 100 mg PO DAILY RF: 0 clobetasol 0.05 % Ointment 1 appl TOPICAL BID RF: 0 triamcinolone acetonide 0.05 % Ointment 1 appl TOPICAL BID RF: 0 Discharge Orders: Discharge Order (Routine); Ordered 07/16/20 Ordered By: Maxx Pinzon Diet: low fat, low cholesterol Activity on Discharge: As tolerated Visit Report Forms: Patient Portal Discharge page Care Plan Goals: Follow-up with primary care physician, exercise and lose weight Health Concerns: Take aspirin once daily and continue other home medication Plan of Treatment: Follow-up with primary care physician in 1 week
[2020-07-16 19:13] VITALS: BP 113/64; PULSE 59; RESP 19; TEMP 35.8; O2SAT 96
--- NOTE | 2020-07-16 22:30 | MR_ITS ---
MRI OF THE BRAIN WITHOUT IV CONTRAST INDICATION: Stroke. COMPARISON: Head CT 07/15/2020. TECHNIQUE: This is a limited incomplete MRI of the brain. Sagittal T1, axial diffusion, and axial FLAIR imaging is obtained. The patient could not tolerate the remainder of this study. FINDINGS: There is no hydrocephalus, extra-axial surface collection, or herniation. Patchy T2 signal changes concentrated within the periventricular white matter, possibly chronic microangiopathy though nonspecific. There is a chronic lacunar infarct within the left frontal centrum semiovale. There is no acute infarct on diffusion-weighted imaging. The cerebellar tonsils are normally positioned. The craniocervical junction is normal. Osseous marrow signal intensity is homogenous. The visualized soft tissues are unremarkable. The right maxillary sinus is partially opacified. MR/MR head/brain wo con IMPRESSION: - This is a limited incomplete MRI of the brain. The patient could not tolerate this entire examination. There are no acute infarcts on diffusion-weighted imaging. - Patchy T2 signal changes concentrated within the periventricular white matter, possibly chronic microangiopathy though nonspecific. There is a chronic lacunar infarct within the left frontal centrum semiovale.
== END 2020-07-16 20:15 | disposition home or self-care (01) | DRG 111 ==
LOC: HO.ED 14:14 → HO.IMC 20:29
PROVIDERS: Nurse Practitioner Acute Care; Physician Assistant; Admitting Provider Hospitalist; Emergency Provider Emergency Medicine; PCP Internal Medicine; Visit Provider Hospitalist
DX: R42 Dizziness and giddiness (principal); K51.90 Ulcerative colitis, unspecified, without complications; G47.30 Sleep apnea, unspecified; E66.9 Obesity, unspecified; L40.9 Psoriasis, unspecified; H53.8 Other visual disturbances; K21.9 Gastro-esophageal reflux disease without esophagitis; Z68.37 Body mass index [BMI] 37.0-37.9, adult; Z20.828 Contact with and (suspected) exposure to other viral communicable diseases; Z99.89 Dependence on other enabling machines and devices; Z79.82 Long term (current) use of aspirin; Z79.899 Other long term (current) drug therapy
CPT/HCPCS: 36415; 70450; 70551; 80048; 80061; 80076; 83735; 84484; 85025; 87635; 93005; 93306; 93880; 97161; 97165; 99285

== ENCOUNTER → 2020-07-26 08:37 | Outpatient (BNVA) | payer OTHER, SELFPAY | PROVIDERS: PCP Internal Medicine; Visit Provider Surgery | DX: Z76.89 Persons encountering health services in other specified circumstances (principal) ==

== ENCOUNTER → 2020-08-13 13:53 | Outpatient (BNVA) | payer OTHER, SELFPAY | PROVIDERS: PCP Internal Medicine; Referring Provider Internal Medicine; Visit Provider Internal Medicine Gastroenterology ==

== ENCOUNTER → 2020-08-16 08:16 | Outpatient (BNVA) | payer OTHER, SELFPAY | PROVIDERS: PCP Internal Medicine; Visit Provider Dietitian, Registered ==

== ENCOUNTER → 2020-08-29 08:27 | Outpatient (BNVA) | payer OTHER, SELFPAY | PROVIDERS: PCP Internal Medicine; Visit Provider Dietitian, Registered ==

== ENCOUNTER 2020-10-02 10:29 | Day surgery (SDC) | payer OTHER, SELFPAY ==
[2020-09-25 15:08] VITALS: BMI 36.3
--- NOTE | 2020-10-01 09:06 | HO.ANESPROP2 ---
Documented by User: Meka De Jesus 10/01/20 09:11 HPI - Anesthesia Eval Consult details Narrative: 55yo M for Upper Endoscopy and Colonoscopy [facility] [place] admit with dizziness. Neg w/u for acute findings. Chronic lacunar infarct. [facility] Active Problems Active Problems: All Active Problems (Updated 09/25/20 @ 14:57 by Aneta Barajas) BMI 37.0-37.9, adult (Acute) Dizziness (Acute) Lacunar infarction (Chronic) BMI 36.0-36.9,adult (Acute) GERD (gastroesophageal reflux disease) (Acute) Back pain (Acute) Ulcerative colitis (Acute) Psoriasis (Acute) Sleep apnea with use of continuous positive airway pressure (CPAP) (Acute) Hypertension (Acute) Obesity (Acute) Past Medical History Medical History (Updated 09/25/20 @ 14:57 by Aneta Barajas) Back pain GERD (gastroesophageal reflux disease) Hypertension Lacunar stroke Obesity On beta philip at home Psoriasis Sleep apnea with use of continuous positive airway pressure (CPAP) Ulcerative colitis Family History Family History Father No problems noted. Mother No problems noted. Sister No problems noted. Sister No problems noted. Sister Kidney replaced by transplant Brother No problems noted. Brother No problems noted. Brother No problems noted. Brother Diabetes Son No problems noted. Daughter No problems noted. Surgical History Surgical History (Updated 09/25/20 @ 15:01 by Aneta Barajas) History of esophagogastroduodenoscopy (EGD) Hx of colonoscopy No pertinent past surgical history Social History Social History (Updated 08/13/20 @ 13:57 by MERT Castellano) Household Members: None Housing: Apartment Are you a primary manager care management to a significant other at home: No Do you presently have visiting nurse or other home services: No Alcohol intake: never Smoking Status: Never smoker Use of substances other than those prescribed or required for medical reasons: No Have you been hit, kicked, punched, or otherwise hurt by someone within the past year? If so, by whom?: No Advance Directives: No Advance Directives Information Provided: No Advance Directives on File: No Recently lost weight without trying: No service: No Current occupational status: employed Current occupation: [employer] Meds Allergies Allergy/AdvReac Type Severity Reaction Status Date / Time No Known Allergies Allergy Verified 08/13/20 13:55 [No Known Allergies*] Home Medications Medication Instructions Recorded Confirmed Last Taken Type lisinopril 1 tab PO DAILY 05/24/20 09/25/20 07/15/20 History metoprolol tartrate 1 tab PO BID 05/24/20 09/25/20 07/15/20 History clobetasol 1 appl TOPICAL BID 07/15/20 09/25/20 Unknown History docusate sodium [Colace] 100 mg PO DAILY 07/15/20 09/25/20 07/15/20 History famotidine 20 mg PO BID 07/15/20 09/25/20 07/15/20 History multivitamin 1 tab PO DAILY 07/15/20 09/25/20 07/15/20 History triamcinolone acetonide 1 appl TOPICAL BID 07/15/20 09/25/20 Unknown History Exam Exam Date and Time: October 01, 2020 0906 Height,Weight and Vital Signs: Height 5 ft 7 in Weight 105.233 kg Pertinent Lab Results Pertinent Lab Results: Laboratory Tests 07/16/20 07/16/20 06:15 06:15 WBC 6.6 Hgb 15.3 Hct 45.8 Plt Count 235 Sodium 137 Potassium 4.3 Chloride 99 Carbon Dioxide 29 BUN 17 H Creatinine 0.86 Narrative Narrative: EKG 06/2020 Vent. Rate : 063 BPM Atrial Rate : 063 BPM P-R Int : 148 ms QRS Dur : 098 ms QT Int : 406 ms P-R-T Axes : 025 -07 022 degrees QTc Int : 415 ms Normal sinus rhythm Incomplete right bundle branch block Moderate voltage criteria for LVH, may be normal variant Borderline ECG When compared with ECG of 11-JUL-2020 11:29, No significant change was found Echo 06/2020 Conclusions: - The left ventricular systolic function is normal. The visually estimated ejection fraction is between 55-60%. - No obvious valvular pathology seen on this study. Assessment and Plan Assessment Anesthesia Assessment: Chart Reviewed Documented by User: Lori Fowlerace 10/02/20 11:09 [facility] Past Medical History Medical History (Updated 09/25/20 @ 14:57 by Aneta Barajas) Back pain GERD (gastroesophageal reflux disease) Hypertension Lacunar stroke Obesity On beta philip at home Psoriasis Sleep apnea with use of continuous positive airway pressure (CPAP) Ulcerative colitis Family History Family History Father No problems noted. Mother No problems noted. Sister No problems noted. Sister No problems noted. Sister Kidney replaced by transplant Brother No problems noted. Brother No problems noted. Brother No problems noted. Brother Diabetes Son No problems noted. Daughter No problems noted. Surgical History Surgical History (Updated 09/25/20 @ 15:01 by Aneta Barajas) History of esophagogastroduodenoscopy (EGD) Hx of colonoscopy No pertinent past surgical history Social History Social History (Updated 08/13/20 @ 13:57 by MERT Castellano) Household Members: None Housing: Apartment Are you a primary manager care management to a significant other at home: No Do you presently have visiting nurse or other home services: No Alcohol intake: never Smoking Status: Never smoker Use of substances other than those prescribed or required for medical reasons: No Have you been hit, kicked, punched, or otherwise hurt by someone within the past year? If so, by whom?: No Advance Directives: No Advance Directives Information Provided: No Advance Directives on File: No Recently lost weight without trying: No service: No Current occupational status: employed Current occupation: [employer] Allergies Allergy/AdvReac Type Severity Reaction Status Date / Time No Known Allergies Allergy Verified 08/13/20 13:55 [No Known Allergies*] Home Medications Medication Instructions Recorded Confirmed Last Taken Type lisinopril 1 tab PO DAILY 05/24/20 09/25/20 07/15/20 History metoprolol tartrate 1 tab PO BID 05/24/20 09/25/20 07/15/20 History clobetasol 1 appl TOPICAL BID 07/15/20 09/25/20 Unknown History docusate sodium [Colace] 100 mg PO DAILY 07/15/20 09/25/20 07/15/20 History famotidine 20 mg PO BID 07/15/20 09/25/20 07/15/20 History multivitamin 1 tab PO DAILY 07/15/20 09/25/20 07/15/20 History triamcinolone acetonide 1 appl TOPICAL BID 07/15/20 09/25/20 Unknown History Exam Airway Mallampati Class: II TM Dist: >3cm Neck ROM: Full Heart: RRR Lungs: CTA BL Assessment and Plan Assessment Anesthesia Assessment: Anesthesia Plan Discussed and Chart Reviewed Final Anesthetic Review NPO: Yes ASA Class: III Final Preanesthetic Review: No Changes in Pt Med Stat and Consent Obtained/Reviewed Patient Risk: Intermediate Procedure Risk: Intermediate Anesthetic Plan Anesthetic Plan: MAC: Disposition: Standard PACU
[2020-10-02 10:50] VITALS: BP 143/85; PULSE 59; RESP 15; TEMP 36.3; O2SAT 99; BMI 36.8
[2020-10-02] MEDS: Lactated Ringers 1,000 ML 100 ML IVCONT (10:54)
--- NOTE | 2020-10-02 11:06 | MHC.SHP ---
Pre-Procedural Eval Section B Chief Complaint: constipaion,dysphagia Relevant Family History (Specify if Yes): No Relevant Social History: None Present Medications: see Short Stay Collaborative assessment Medical History: Significant History (Back pain GERD (gastroesophageal reflux disease) Hypertension Lacunar stroke Obesity On beta philip at home Psoriasis Sleep apnea with use of continuous positive airway pressure (CPAP) Ulcerative colitis) History of Previous Operations: No relevant previous surgery Allergies: Allergies Allergy/AdvReac Type Severity Reaction Status Date / Time No Known Allergies Allergy Verified 08/13/20 13:55 [No Known Allergies*] Review of Systems Sugical H&P ROS: Negative: Constitution, Cardiovascular, Respiratory, Neurological, Psychiatric, Hem-Onc, Allergic/Immunologic, Gastrointestinal, Genitourinary, Musculoskeletal, Integumentary, Endocrine and Eyes/Ears/Nose/Throat Exam Surgical H&P Exam: Normal: HEENT, Normal: Heart, Normal: Lungs, Normal: Extremities, Normal: Abdomen, Normal: Skin and Normal: Neurological Plan Diagnosis/Plan: Unchanged I have reviewed the history and physical and performed a pertinent physical examination on my patient. No changes have occurred unless specified.
--- NOTE | 2020-10-02 12:03 | PM.OP ---
Brief Operative Note Date of Service: 10/02/20 Pre-op diagnosis: dysphagia, hx of colitis, constipation Post-op diagnosis: same Procedure: see op note Surgeon: Rohini Kwon MD Anesthesia: MAC Estimated blood loss (mL): 0 Condition: stable Disposition: PACU
--- NOTE | 2020-10-02 12:04 | W.PM.OPN ---
Operative Note Operative Note Date of Service: 10/02/20 Narrative: Operative Information Procedure Description: EGD, Colonoscopy FLEXIBLE TRANSORAL UPPER GASTROINTESTINAL ENDOSCOPY AND COLONOSCOPY PROCEDURE NOTE UPPER ENDOSCOPY Consent: Indications for the procedure and potential complications of bleeding, perforation, reaction to medications and missed diagnosis were discussed with the patient and informed consent was obtained. Instrument: Olympus GIF H 190 J mid size upper endoscope Monitoring: Vital signs and clinical assessment, continuous EKG monitoring, Pulse oximetry, Carbon Dioxide monitoring and blood pressure monitoring were done throughout the procedure. Procedure: The patient was placed in the left lateral decubitis position and pre-procedure medications were administered and a bite block was placed. The endoscope was inserted into the mouth and advanced under direct vision to the third part of duodenum. A careful inspection was made as the upper endoscope was withdrawn including a retroflexed examination of the proximal stomach; Findings and interventions are described below. Findings: Larynx:normal Esophagus: GE junction at 40 cm, diaphragm hiatus at 40 cm, erythema at GEJ, bx taken as well as random esophagus, LES slightly lax. Balloon dilation done 20 mm at LES and UES Stomach: Patchy erythema. Biopsies were obtained. Grade 2 flap valve on retroflexed examination of the cardia. Duodenum: bulbar duodenitis, bx taken Intervention: Biopsies as noted above COLONOSCOPY Instrument: Olympus variable stiffness pediatric scope 190L Colonoscopy Monitoring: Vital signs and clinical assessment, continuous EKG monitoring, Pulse oximetry, Carbon Dioxide monitoring and blood pressure monitoring were done throughout the procedure. Colon withdrawal time was 9 minutes. Procedure: The patient was placed in the left lateral decubitis position and pre-procedure medications were administered. After a digital rectal examination of the ano-rectum, the video colonoscope was inserted into the rectum and advanced through the colon to the cecum/TI. The colonoscope was slowly withdrawn in a retrograde panoramic fashion and the colon mucosa was carefully examined including a retroflexed view of the rectum. Findings and interventions are described below. Procedure Difficulty:easy Findings: Terminal Ileum-normal Cecum:normal Ascending Colon: 10 mm sessile polyp removed with cold snare Transverse Colon -normal Descending Colon:normal Sigmoid Colon: normal Rectum: Retroflexion with small internal hemorrhoids, grade I Anorectum - normal Colon preparation: [place] Bowel Preparation Scale Right colon; 2 Transverse colon: 3 Left colon; 2 (0 = Unprepared colon segment with mucosa not seen due to solid stool that cannot be cleared. 1 = Portion of mucosa of the colon segment seen, but other areas of the colon segment not well seen due to staining, residual stool and/or opaque liquid. 2 = Minor amount of residual staining, small fragments of stool and/or opaque liquid, but mucosa of colon segment seen well. 3 = Entire mucosa of colon segment seen well with no residual staining, small fragments of stool or opaque liquid) Impression and Post Procedure Diagnosis: Endoscopy Findings: gastritis duodenitis esophagitis Colonoscopy Findings: internal hemorrhoids polyp Plan: Await Pathology results Repeat Colonoscopy in 5 years or earlier if clinically indicated High fiber diet leaflet avoid straining at stool, epsom salts and sitz bath, anusol supps or cream as needed consider changing to PPi if not taking and still on pepcid Above findings were reviewed with the patient and relevant handouts were provided if indicated.
[2020-10-02 12:55] VITALS: BP 111/69; PULSE 66; RESP 16; TEMP 36.1; O2SAT 96
[2020-10-02 13:10] VITALS: BP 122/73; PULSE 55; RESP 18; O2SAT 97
[2020-10-02 13:25] VITALS: BP 113/68; PULSE 70; TEMP 36.1; O2SAT 98
== END 2020-10-02 14:01 | disposition home or self-care (01) ==
PROVIDERS: PCP Internal Medicine; Visit Provider Internal Medicine Gastroenterology
PROC: (CPT 45385; principal; 2020-10-02 12:10)
DX: K59.00 Constipation, unspecified (principal); D12.2 Benign neoplasm of ascending colon; K64.0 First degree hemorrhoids; K29.70 Gastritis, unspecified, without bleeding; K29.80 Duodenitis without bleeding; K21.00 Gastro-esophageal reflux disease with esophagitis, without bleeding; K44.9 Diaphragmatic hernia without obstruction or gangrene; I10 Essential (primary) hypertension; G47.33 Obstructive sleep apnea (adult) (pediatric); Z86.73 Personal history of transient ischemic attack (TIA), and cerebral infarction without residual deficits; Z99.89 Dependence on other enabling machines and devices; Z79.82 Long term (current) use of aspirin; Z79.899 Other long term (current) drug therapy
CPT/HCPCS: 45385; 43249; 43239; 88305; 88342; C1726

== ENCOUNTER 2020-10-21 14:23 | Outpatient (REF) | payer OTHER, SELFPAY ==
--- NOTE | ~2020-10-21 | CT_ITS ---
EXAMINATION: CT CHEST WITHOUT CONTRAST CLINICAL INFORMATION: Solitary pulmonary nodule COMPARISON: Chest x-ray July 11, [address] abdomen pelvis June 21, 2020 TECHNIQUE: Multidetector volumetric CT imaging of the chest was done. Axial MIP volume rendering provided. Sagittal and coronal reformatted images were obtained. This CT examination was performed using dose optimization techniques as appropriate, variously including the following: *Automated exposure control *Adjustment of mA and/or kV according to patient size (this includes techniques or standardized protocols for targeted exams where dose is matched to indication/reason for exam; i.e. extremities or head) *Use of iterative reconstruction technique DLP: 261 mGy-cm FINDINGS: The heart is normal in size. Mild coronary artery calcifications are noted. There is no pericardial effusion. A few normal-sized mediastinal lymph nodes are appreciated. Nonaneurysmal thoracic aorta. Suspected sub-5 mm nodule the left thyroid lobe. No axillary lymphadenopathy. Central airways are patent. Lungs are well aerated. There is no lobar consolidation. No pleural effusion or pneumothorax. A few small ulnar nodules are noted, for example a 3 mm subpleural nodule of the lateral right lung apex (image 59/615, series 7). 3 mm subpleural right upper lobe pulmonary nodule (image 158). 3 mm right lower lobe pulmonary nodule (image 248). 4 mm right lower lobe pulmonary nodule is stable (image 331). There are some perifissural nodular densities which statistically represent nodes, for example a 5 mm perifissural nodular density within the right perihilar region (image 261). Visualized portion of the upper abdomen are grossly unremarkable. Moderate to severe diffuse degenerative changes of the spine. CT/CT chest wo con IMPRESSION: A few small pulmonary nodules are visualized. The previously visualized 4 mm right lower lobe pulmonary nodule is stable, however, there is no prior chest cross-sectional imaging available for comparison of the other nodules. According to the UPDATED 2017 Fleischner Society recommendations, the advised follow-up imaging for solid nodules < 6 mm is: LOW RISK PATIENT: No routine follow-up. HIGH RISK PATIENT: Optional CT at 12 months.
== END 2020-10-21 14:24 | disposition home or self-care (01) ==
LOC: HO.CT 14:23
PROVIDERS: Visit Provider Internal Medicine
DX: R91.1 Solitary pulmonary nodule (principal)
CPT/HCPCS: 71250

== ENCOUNTER 2020-10-26 11:42 | Emergency (ER) | payer OTHER, SELFPAY ==
[2020-10-26 11:50] VITALS: BP 137/69; PULSE 63; RESP 18; TEMP 37; O2SAT 99; BMI 36.0
--- NOTE | 2020-10-26 12:27 | ED_ITS ---
HPI - General Adult General Chief complaint: General Medical Stated complaint: rectal pain Time Seen by Provider: 10/26/20 12:27 Source: patient Mode of arrival: ambulatory Limitations: no limitations History of Present Illness HPI narrative: States had routine colonoscopy a week ago and couple days after now has had rectal itching. He denies any rectal bleeding. Has had normal bowel movements. States anal area feels irritated. Onset (ago): day(s) Severity: mild Relieving factors: none Exacerbating factors: none Associated symptoms: denies other symptoms Treatments prior to arrival: none Related Data Home Medications Medication Instructions Recorded Confirmed lisinopril 1 tab PO DAILY 05/24/20 09/25/20 metoprolol tartrate 1 tab PO BID 05/24/20 09/25/20 clobetasol 1 appl TOPICAL BID 07/15/20 09/25/20 docusate sodium [Colace] 100 mg PO DAILY 07/15/20 09/25/20 famotidine 20 mg PO BID 07/15/20 09/25/20 multivitamin 1 tab PO DAILY 07/15/20 09/25/20 triamcinolone acetonide 1 appl TOPICAL BID 07/15/20 09/25/20 Previous Rx's Medication Instructions Recorded aspirin 81 mg PO DAILY #30 tab 07/16/20 polyethylene glycol 3350 17 17 g PO BID #238 g 08/13/20 gram/dose oral powder sodium,potassium,mag sulfates 17.5 480 ml PO .COMPLEX #354 ml 08/13/20 gram-3.13 gram-1.6 gram oral soln hydrocortisone 1 appl TOPICAL BID PRN #28.35 g 10/26/20 Allergies Allergy/AdvReac Type Severity Reaction Status Date / Time No Known Allergies Allergy Verified 10/26/20 11:50 [No Known Allergies*] Review of Systems Review of Systems: Constitutional: No Weight loss, No Fever, No Chills, No Night Sweats, No Fatigue, No Malaise ENT/Mouth: No Hearing loss, No Ear Pain, No Nasal Congestion, No Sinus Pain, No Hoarseness, No sore throat, No Rhinorrhea, No Swallowing Difficulty Eyes: No Eye Pain, No Swelling, No Redness, No Foreign Body, No Discharge, No Vision Changes Cardiovascular: No Chest Pain, No SOB, No Dyspnea on Exertion, No Orthopnea, No Edema, No Palpitations Respiratory: No Cough, No Sputum, No Wheezing, No Smoke Exposure, No Dyspnea Gastrointestinal: No Nausea, No Vomiting, No Diarrhea, No Constipation, No abdominal Pain, No Hematochezia, No Melena Genitourinary: no irregular bleeding, No Dysuria, No Urinary Frequency, No Hematuria, No Urinary Incontinence, No Urgency, No Flank Pain, No Urinary Flow Changes, No Hesitancy Musculoskeletal: No joint pain, No Myalgias, No Joint Swelling Skin: No Skin Lesions, No rash Neuro: No Weakness, No Numbness, No Paresthesias, No Loss of Consciousness, No Dizziness, No Headache Psych: No Social Issues Heme/Lymph: No Bruising, No Bleeding,No Lymphadenopathy Endocrine: No Polyuria, No Polydipsia, No Temperature Intolerance Yes all other systems are reviewed and are negative [facility] Past Medical History Medical History (Updated 10/26/20 @ 12:42 by Guevara Grewal NP) Back pain GERD (gastroesophageal reflux disease) Hypertension Lacunar stroke Obesity On beta philip at home Psoriasis Sleep apnea with use of continuous positive airway pressure (CPAP) Ulcerative colitis Surgical History History of esophagogastroduodenoscopy (EGD) Hx of colonoscopy No pertinent past surgical history Family History Family History Father No problems noted. Mother No problems noted. Sister No problems noted. Sister No problems noted. Sister Kidney replaced by transplant Brother No problems noted. Brother No problems noted. Brother No problems noted. Brother Diabetes Son No problems noted. Daughter No problems noted. Social History Social History (Updated 08/13/20 @ 13:57 by MERT Castellano) Household Members: None Housing: Apartment Alcohol intake: never Smoking Status: Never smoker Use of substances other than those prescribed or required for medical reasons: No Advance Directives: No service: No Current occupational status: employed Current occupation: [employer] Physical Exam Vital Signs: Vital Signs: Last Vital Signs Temp 98.6 F 10/26/20 11:50 Pulse 59 10/26/20 12:36 Resp 16 10/26/20 12:36 BP 124/63 10/26/20 12:36 Pulse Ox 98 10/26/20 12:36 Body Mass Index 36.0 Reviewed Const: General: cooperative and healthy appearing; No acute distress or intoxicated appearing Nutritional Appearance: average body habitus Orientation/consciousness: patient oriented x3 HENMT: Head: Yes normal to inspection Ears: hearing grossly normal bilaterally Eyes: General: appearance normal, both eyes and all related structures Visual Hernandez: normal visual hernandez by confrontation Neck: Neck: Yes normal visual inspection, No positive Brudzinski's sign, No positive Kernig's sign and No tender Thyroid: Thyroid normal Chest: Chest palpation & inspection: normal inspection of the chest Resp: Effort & Inspection: normal respiratory effort Cardio: Jugular venous distension: no JVD GI: Inspection: Yes normal to inspection Palpation (GI): Soft to palpation Percussion: Yes normal to percussion Auscultation: normal bowel sounds Rectal Exam - Male: Yes Visual inspection abnormal (The anal area appears slightly macerated. No hemorrhoids or bleeding. ), Yes heme negative stool, No External hemorrhoid(s) present, No Internal hemorrhoid(s) present, No fecal impaction, No Anal fissure(s) present, No hemorrhoids and Yes other (Occult negative.) : General: Yes no CVA tenderness Back/Spine/Pelvis: Back: no CVA tenderness Skin: General skin exam: no rashes or lesions noted Neuro: General: patient oriented x3 Extrem: General: Yes normal to inspection Discharge Plan Discharge Clinical Impression: Anal itch Patient Disposition: Home, Self-Care Instructions: Anal Itching (ED) Additional Instructions: Wash after having bowel movement Keep site clean and dry You have some dry and irritated skin in the anal area May use barrier protectant [id number] as reviewed Return if any concerns or worsening symptoms Thank you Prescriptions: New hydrocortisone 1 % cream 1 appl topical BID PRN (Reason: itching) Qty: 28.35 RF: 0 No Action lisinopril 20 mg tablet 1 tab PO DAILY RF: 0 metoprolol tartrate 25 mg tablet 1 tab PO BID RF: 0 multivitamin Tablet 1 tab PO DAILY RF: 0 famotidine 20 mg Tablet 20 mg PO BID RF: 0 docusate sodium [Colace] 100 mg Capsule 100 mg PO DAILY RF: 0 clobetasol 0.05 % Ointment 1 appl TOPICAL BID RF: 0 triamcinolone acetonide 0.05 % Ointment 1 appl TOPICAL BID RF: 0 aspirin 81 mg Tablet,Chewable 81 mg PO DAILY Qty: 30 RF: 0 polyethylene glycol 3350 [Miralax] 17 gram/dose powder 17 g PO BID Qty: 238 RF: 3 Suprep Bowel Prep Kit 17.5-3.13-1.6 gram recon soln 480 ml PO .COMPLEX Qty: 354 RF: 0 Referrals: Nilsa Sexton MD [Primary Care Provider] - 1 week
[2020-10-26 12:36] VITALS: BP 124/63; PULSE 59; RESP 16; O2SAT 98
== END 2020-10-26 13:00 | disposition home or self-care (01) ==
PROVIDERS: Emergency Provider Emergency Medicine Emergency Medical Services; PCP Internal Medicine
DX: K62.89 Other specified diseases of anus and rectum (principal); L29.0 Pruritus ani; I10 Essential (primary) hypertension
CPT/HCPCS: 99283; 99284

== ENCOUNTER 2020-11-08 14:48 | Emergency (ER) | payer OTHER, SELFPAY ==
--- NOTE | ~2020-11-08 | XR_ITS ---
EXAMINATION: XR CHEST CLINICAL INFORMATION: Chest pain COMPARISON: None TECHNIQUE: Frontal view of the chest was obtained. FINDINGS: The lungs are well-expanded and clear of acute process. The heart size and pulmonary vascularity is normal. There is mild spondylosis dorsal spine. No lytic process. XR/XR chest 1V IMPRESSION: No acute cardiopulmonary process seen.
--- NOTE | 2020-11-08 15:43 | ECG_ITS ---
Test Reason : ABDOMINAL PAIN Blood Pressure : / mmHG Vent. Rate : 058 BPM Atrial Rate : 058 BPM P-R Int : 148 ms QRS Dur : 096 ms QT Int : 418 ms P-R-T Axes : 023 -02 012 degrees QTc Int : 410 ms Sinus bradycardia Incomplete right bundle branch block Moderate voltage criteria for LVH, may be normal variant Borderline ECG When compared with ECG of 15-JUL-2020 11:29, No significant change was found Referred By: Kaylee Galvin Electronically Signed By:DANIEL EID MD
[2020-11-08 16:14] VITALS: BP 154/89; PULSE 56; RESP 18; TEMP 36.8; O2SAT 99; BMI 39.1
--- NOTE | 2020-11-08 16:19 | ED_ITS ---
HPI - General Adult General Chief complaint: General Medical Stated complaint: hbp, burning sensation in chest Time Seen by Provider: 11/08/20 15:40 Source: patient Mode of arrival: ambulatory Limitations: no limitations History of Present Illness HPI narrative: 55-year-old male with a past medical history of ulcerative colitis, hypertension, GERD, gastritis here with reports of intermittent epigastric burning since Wednesday. Burning occurs after eating certain foods. It is associated with nausea and improved on its own. The patient is taking Pepcid 20 mg every day. Denies associated diarrhea, urinary symptoms, fevers or chills. Today after an episode he checked his blood pressure and he noted to be high 169/95. He has been compliant with his blood pressure medications of metoprolol 25 mg b.i.d. lisinopril 20 mg every day. He also felt lightheaded today and so he brought himself into the emergency department. Denies chest pain, shortness of breath, cough, diaphoresis, associated nausea, leg swelling or pain. Related Data Home Medications Medication Instructions Recorded Confirmed lisinopril 1 tab PO DAILY 05/24/20 09/25/20 metoprolol tartrate 1 tab PO BID 05/24/20 09/25/20 clobetasol 1 appl TOPICAL BID 07/15/20 09/25/20 docusate sodium [Colace] 100 mg PO DAILY 07/15/20 09/25/20 famotidine 20 mg PO BID 07/15/20 09/25/20 multivitamin 1 tab PO DAILY 07/15/20 09/25/20 triamcinolone acetonide 1 appl TOPICAL BID 07/15/20 09/25/20 Previous Rx's Medication Instructions Recorded aspirin 81 mg PO DAILY #30 tab 07/16/20 polyethylene glycol 3350 17 17 g PO BID #238 g 08/13/20 gram/dose oral powder sodium,potassium,mag sulfates 17.5 480 ml PO .COMPLEX #354 ml 08/13/20 gram-3.13 gram-1.6 gram oral soln hydrocortisone 1 appl TOPICAL BID PRN #28.35 g 10/26/20 Allergies Allergy/AdvReac Type Severity Reaction Status Date / Time No Known Allergies Allergy Verified 10/26/20 11:50 [No Known Allergies*] Review of Systems Review of Systems: Yes all other systems are reviewed and are negative Constitutional: Constitutional: Reports no additional constitutional complaints, Denies body ache(s), Denies chills, Denies fever(s), Denies headache(s) and Denies weakness Eyes: Eyes: Reports no additional eye complaints and Denies change in vision ENT: Reports system reviewed and no additional complaints, except as documented, Reports dizziness, Denies headache(s), Denies nasal congestion, Denies nasal discharge and Denies neck pain Cardiovascular: Cardiovascular: Reports no additional cardiovascular complaints, Denies chest pain, Denies leg edema and Denies dyspnea Respiratory: Respiratory: Reports no additional respiratory complaints, Denies cough and Denies dyspnea Gastrointestinal: Gastrointestinal: Reports no additional gastrointestinal complaints, Reports abdominal pain, Denies diarrhea, Reports nausea and Denies vomiting Genitourinary: Genitourinary: Denies urinary incontinence Musculoskeletal: Musculoskeletal: Reports no additional musculoskeletal complaints, Denies back pain, Denies arthralgias, Denies joint swelling, Denies neck pain, Denies numbness and Denies tingling Integumentary/Breasts: Skin/Breast: Reports system reviewed and no additional complaints, except as docu and Denies rash Neurologic: Reports system reviewed and no additional complaints, except as documented, Denies Abnormal speech present, Reports dizziness, Denies headache(s), Denies numbness, Denies tingling and Denies weakness ON LICENSE OF [facility] Past Medical History Attestation statement: The following information was validated with the patient. Source: old records reviewed and nursing notes reviewed Medical History Back pain GERD (gastroesophageal reflux disease) Hypertension Lacunar stroke Obesity On beta philip at home Psoriasis Sleep apnea with use of continuous positive airway pressure (CPAP) Ulcerative colitis Surgical History History of esophagogastroduodenoscopy (EGD) Hx of colonoscopy No pertinent past surgical history Family History Family History Father No problems noted. Mother No problems noted. Sister No problems noted. Sister No problems noted. Sister Kidney replaced by transplant Brother No problems noted. Brother No problems noted. Brother No problems noted. Brother Diabetes Son No problems noted. Daughter No problems noted. Social History Social History Household Members: None Housing: Apartment Alcohol intake: never Smoking Status: Never smoker Advance Directives: No Advance Directives Information Provided: No service: No Current occupational status: employed Current occupation: [employer] Physical Exam Vital Signs: Vital Signs: Last Vital Signs Temp 98.2 F 11/08/20 16:14 Pulse 56 11/08/20 16:14 Resp 18 11/08/20 16:14 BP 154/89 H 11/08/20 16:14 Pulse Ox 99 11/08/20 16:14 Body Mass Index 39.1 Const: General: cooperative, healthy appearing, comfortable and no acute distress Orientation/consciousness: patient oriented x3 Limitations: no limitations HENMT: Head: Yes normal to inspection Ears: hearing grossly normal bilaterally General nose exam: Normal external nose present Face and sinus: Yes normal facial exam Mouth: Normal oral and palatal mucosa present Throat: Yes posterior oropharynx normal Eyes: General: appearance normal, both eyes and all related structures Pupils: Equal, round and reactive pupils present Neck: Neck: Yes normal visual inspection Chest: Chest palpation & inspection: normal inspection of the chest Resp: Effort & Inspection: normal respiratory effort Auscultation: clear to auscultation bilaterally Cardio: Rate: regular rate Rhythm: regular rhythm Peripheral pulses: Peripheral pulses 2+ throughout GI: Inspection: Yes normal to inspection Palpation (GI): Soft to palpation and nontender Auscultation: normal bowel sounds Back/Spine/Pelvis: Thoracic/Lumbar Spine: thoracic and lumbar spine normal to inspection Skin: General skin exam: no rashes or lesions noted Neuro: General: patient oriented x3, no focal motor deficits and normal sensation to monofilament Cranial nerves: Yes CN's II-XII intact bilaterally, Yes Equal, round and reactive pupils present, Yes Bilaterally intact EOM present, Yes Nystagmus not present, Yes Normal facial strength present and Yes Midline tongue present Cognition (Neuro): normal cognition Speech: No Abnormal speech present Gait exam (Neuro): Normal gait present Motor exam (neuro): 5/5 motor strength present throughout Sensory Exam: Normal double simultaneous stimulation for sensation Coordination: [id number] test normal, [id number] test normal and tandem gait normal Extrem: General: Yes normal to inspection Course Course Course Narrative: 55-year-old male here with intermittent episodes of epigastric burning which is worsened after eating with associated nausea and today noted to have an episode of high blood pressure with associated lightheadedness. On arrival vital signs are stable. Mild hypertension. No focal abdominal pain on exam and he denies any pain at this time. Will need EKG, labs, chest x-ray 1745-labs are unremarkable. Troponin is negative. EKG shows no ischemic changes and chest x-ray is negative. No pain in the abdomen here. Likely GERD. We discussed following a GERD diet and increasing his dose of Pepcid daily. Pressure improved here without any intervention. Patient will monitor at home and follow up with his doctor for blood pressure check if needed to adjust his medications. Reviewed worrisome signs and symptoms and when to return to the emergency department. Comfortable discharge home. Medical Decision Making MDM Narrative Medical decision making narrative: acs, gerd Less likely ACS with EKG which shows no skin changes and troponin negative Lab Data Result diagrams: 11/08/20 16:29 11/08/20 16:29 Labs: Lab Results 11/08/20 11/08/20 11/08/20 Range/Units 16:29 16:29 16:29 WBC 6.9 (4.8-10.8) X10*3/uL RBC 5.08 (4.60-5.80) X10*6/uL Hgb 14.8 (14.0-18.0) g/dl Hct 44.1 (42-52) % MCV 86.8 (80-98) fL MCH 29.1 (27.0-33.0) pg MCHC 33.6 (31.0-36.0) g/dl RDW 13.0 (11.0-16.0) % Plt Count 195 (160-400) X10*3/uL MPV 9.2 L (9.4-12.4) fL Immature Gran % (Auto) 0.3 (0.0-0.4) % Neut % (Auto) 61.8 (45-73) % Lymph % (Auto) 25.8 (20-40) % [place] % (Auto) 10.4 (2-11) % Eos % (Auto) 1.6 (0-4) % Baso % (Auto) 0.1 (0-2) % Lymph # (Auto) 1.8 (1.2-4.9) X10*3/uL [place] # (Auto) 0.7 (0.1-1.2) X10*3/uL Eos # (Auto) 0.1 (0.0-0.4) X10*3/uL Baso # (Auto) 0.0 (0.0-0.2) X10*3/uL Abs Immat Gran (auto) 0.02 (0.00-0.03) X10*3/uL Absolute Neuts (auto) 4.3 (2.0-8.3) X10*3/uL Absolute Nucleated RBC 0.000 (0.0-0.012) X10*3/uL Nucleated RBC % (auto) 0.0 (0.0-0.2) /100WBC Hold Blue Top SEE NOTE Sodium 139 (135-145) mmol/L Potassium 4.2 (3.3-5.1) mmol/L Chloride 101 (96-108) mmol/L Carbon Dioxide 28 (22-29) mmol/L Anion Gap 14 (12-20) BUN 19 H (9-16) mg/dL Creatinine 0.89 (0.5-1.4) mg/dL Estim Creat Clear Calc 112.7 Estimated GFR > 60 Random Glucose 92 (60-115) mg/dL Calcium 9.5 (8.4-10.2) mg/dL Magnesium 2.2 (1.6-2.6) mg/dL Total Bilirubin 0.4 (0.0-1.0) mg/dL Direct Bilirubin < 0.2 (0.0-0.5) mg/dL AST 26 (5-37) U/L ALT 31 (0-40) U/L Alkaline Phosphatase 61 (39-117) U/L Troponin I High Sens (<3.5-35.0) ng/L Total Protein 7.2 (6.5-8.0) g/dL Albumin 4.3 (3.5-5.0) g/dL Lipase 37 (8-78) U/L 11/08/20 Range/Units 16:30 WBC (4.8-10.8) X10*3/uL RBC (4.60-5.80) X10*6/uL Hgb (14.0-18.0) g/dl Hct (42-52) % MCV (80-98) fL MCH (27.0-33.0) pg MCHC (31.0-36.0) g/dl RDW (11.0-16.0) % Plt Count (160-400) X10*3/uL MPV (9.4-12.4) fL Immature Gran % (Auto) (0.0-0.4) % Neut % (Auto) (45-73) % Lymph % (Auto) (20-40) % [place] % (Auto) (2-11) % Eos % (Auto) (0-4) % Baso % (Auto) (0-2) % Lymph # (Auto) (1.2-4.9) X10*3/uL [place] # (Auto) (0.1-1.2) X10*3/uL Eos # (Auto) (0.0-0.4) X10*3/uL Baso # (Auto) (0.0-0.2) X10*3/uL Abs Immat Gran (auto) (0.00-0.03) X10*3/uL Absolute Neuts (auto) (2.0-8.3) X10*3/uL Absolute Nucleated RBC (0.0-0.012) X10*3/uL Nucleated RBC % (auto) (0.0-0.2) /100WBC Hold Blue Top Sodium (135-145) mmol/L Potassium (3.3-5.1) mmol/L Chloride (96-108) mmol/L Carbon Dioxide (22-29) mmol/L Anion Gap (12-20) BUN (9-16) mg/dL Creatinine (0.5-1.4) mg/dL Estim Creat Clear Calc Estimated GFR Random Glucose (60-115) mg/dL Calcium (8.4-10.2) mg/dL Magnesium (1.6-2.6) mg/dL Total Bilirubin (0.0-1.0) mg/dL Direct Bilirubin (0.0-0.5) mg/dL AST (5-37) U/L ALT (0-40) U/L Alkaline Phosphatase (39-117) U/L Troponin I High Sens < 3.5 (<3.5-35.0) ng/L Total Protein (6.5-8.0) g/dL Albumin (3.5-5.0) g/dL Lipase (8-78) U/L Imaging Data Chest x-ray: Attestation: I personally reviewed and interpreted this imaging study as follows: Radiologist's impression: [address] [id number] ReportSigned Patient: Tom Chavira [facility]#: [id number]: 1965Acct:[id number]/Sex: 55 / MADM Date: 11/08/20Loc: [email or web address].EDAttending Dr: Ordering Physician: Kaylee Galvin DO Date of Service: 11/08/20 Procedure(s): XR chest 1V Accession Number(s): [id number] cc: Kaylee Galvin DO~ EXAMINATION: XR CHEST CLINICAL INFORMATION: Chest pain COMPARISON: None TECHNIQUE: Frontal view of the chest was obtained. FINDINGS: The lungs are well-expanded and clear of acute process. The heart size and pulmonary vascularity is normal. There is mild spondylosis dorsal spine. No lytic process. XR/XR chest 1V IMPRESSION: No acute cardiopulmonary process seen. ECG Data Attestation: I personally reviewed and interpreted this ECG as follows: Interpretation: Sinus bradycardia with a rate of 58, normal MI, normal QRS, normal QTC Discharge Plan Discharge Clinical Impression: GERD (gastroesophageal reflux disease) Qualifiers: Esophagitis presence: without esophagitis Qualified Code(s): K21.9 - Gastro-esophageal reflux disease without esophagitis Hypertension Qualifiers: Hypertension type: unspecified Qualified Code(s): I10 - Essential (primary) hypertension Patient Disposition: Home, Self-Care Instructions: Gastroesophageal Reflux Disease (ED), Hypertension (ED) Additional Instructions: Increase your famotidine from 20 mg to 40 mg Follow a GERD diet Your blood pressure was mildly elevated today. Follow-up with your primary care doctor for a blood pressure check. If your blood pressure continues to be elevated she may need your doses of blood pressure medication to be increased Prescriptions: No Action lisinopril 20 mg tablet 1 tab PO DAILY RF: 0 metoprolol tartrate 25 mg tablet 1 tab PO BID RF: 0 multivitamin Tablet 1 tab PO DAILY RF: 0 famotidine 20 mg Tablet 20 mg PO BID RF: 0 docusate sodium [Colace] 100 mg Capsule 100 mg PO DAILY RF: 0 clobetasol 0.05 % Ointment 1 appl TOPICAL BID RF: 0 triamcinolone acetonide 0.05 % Ointment 1 appl TOPICAL BID RF: 0 aspirin 81 mg Tablet,Chewable 81 mg PO DAILY Qty: 30 RF: 0 hydrocortisone 1 % cream 1 appl topical BID PRN (Reason: itching) Qty: 28.35 RF: 0 polyethylene glycol 3350 [Miralax] 17 gram/dose powder 17 g PO BID Qty: 238 RF: 3 Suprep Bowel Prep Kit 17.5-3.13-1.6 gram recon soln 480 ml PO .COMPLEX Qty: 354 RF: 0 Referrals: Nilsa Sexton MD [Primary Care Provider] - 2 days Stand Alone Forms: Work/School Release
[2020-11-08 16:39] LABS: MANUAL DIFF FLAG NO
[2020-11-08 16:41] LABS: Basophils Percent Auto 0.1 % (0-2); Eosinophils Absolute Auto 0.1 X10*3/uL (0.0-0.4); Eosinophils Percent Auto 1.6 % (0-4); Hematocrit 44.1 % (42-52); Hemoglobin 14.8 g/dl (14.0-18.0); Imm Gran Abs Auto 0.02 X10*3/uL (0.00-0.03); Imm Gran Pct Auto 0.3 % (0.0-0.4); Lymphocytes Absolute Auto 1.8 X10*3/uL (1.2-4.9); Lymphocytes Percent Auto 25.8 % (20-40); Mean Corpuscular HGB Conc 33.6 g/dl (31.0-36.0); Mean Corpuscular Hemoglobin 29.1 pg (27.0-33.0); Mean Corpuscular Volume 86.8 fL (80-98); Mean Platelet Volume 9.2 fL (9.4-12.4); Monocytes Absolute Auto 0.7 X10*3/uL (0.1-1.2); Monocytes Percent Auto 10.4 % (2-11); Neutrophils Absolute Auto 4.3 X10*3/uL (2.0-8.3); Neutrophils Percent Auto 61.8 % (45-73); Platelet Count 195 X10*3/uL (160-400); Red Blood Count 5.08 X10*6/uL (4.60-5.80); White Blood Count 6.9 X10*3/uL (4.8-10.8)
[2020-11-08 17:06] LABS: Alanine Aminotransferase 31 U/L (0-40); Albumin Level 4.3 g/dL (3.5-5.0); Alkaline Phosphatase 61 U/L (39-117); Aspartate Amino Transferase 26 U/L (5-37); Bilirubin Direct < 0.2 mg/dL (0.0-0.5); Bilirubin Total 0.4 mg/dL (0.0-1.0); Magnesium 2.2 mg/dL (1.6-2.6); Total Protein 7.2 g/dL (6.5-8.0)
[2020-11-08 17:12] LABS: Troponin-I High Sensitivity < 3.5 ng/L (<3.5-35.0)
[2020-11-08 17:50] LABS: Anion Gap 14 (12-20); Blood Urea Nitrogen 19 mg/dL (9-16); Calcium 9.5 mg/dL (8.4-10.2); Carbon Dioxide 28 mmol/L (22-29); Chloride 101 mmol/L (96-108); Creatinine Clr Calc Pharmacy 112.7; Estimated Glomerular Filt Rate > 60; Glucose Random 92 mg/dL (60-115); Lipase 37 U/L (8-78); Potassium 4.2 mmol/L (3.3-5.1); Sodium 139 mmol/L (135-145)
== END 2020-11-08 18:38 | disposition home or self-care (01) ==
PROVIDERS: Nurse Practitioner Family; Emergency Provider Emergency Medicine; PCP Internal Medicine
DX: K21.9 Gastro-esophageal reflux disease without esophagitis (principal); R07.89 Other chest pain; I10 Essential (primary) hypertension; Z79.899 Other long term (current) drug therapy
CPT/HCPCS: 36415; 71045; 80048; 80076; 83690; 83735; 84484; 85025; 93005; 99283

== ENCOUNTER 2020-12-19 22:05 | Emergency (ER) | payer OTHER, SELFPAY ==
--- NOTE | ~2020-12-19 | CT_ITS ---
EXAMINATION: CT ABDOMEN AND PELVIS WITH CONTRAST CLINICAL INFORMATION: Left lower quadrant pain COMPARISON: 06/21/2020 TECHNIQUE: Multidetector volumetric images were obtained from the superior aspect of the liver through the pubic symphysis following administration 85 mL of Omnipaque 350 intravenous contrast. Sagittal and coronal reformatted images were obtained on the technologist's workstation. Oral contrast: No This CT examination was performed using dose optimization techniques as appropriate, variously including the following: *Automated exposure control *Adjustment of mA and/or kV according to patient size (this includes techniques or standardized protocols for targeted exams where dose is matched to indication/reason for exam; i.e. extremities or head) *Use of iterative reconstruction technique DLP: 811 mGy-cm FINDINGS: LUNG BASES: The visualized lung bases are unremarkable. LIVER, GALLBLADDER, AND BILIARY TREE: The liver is normal in size, shape, and attenuation. No focal hepatic lesion or biliary ductal dilatation is present. The gallbladder is unremarkable with no evidence of radiopaque gallstones, gallbladder wall thickening, or obvious pericholecystic inflammatory changes. PANCREAS: Unremarkable. SPLEEN: Unremarkable. ADRENAL GLANDS: Unremarkable. KIDNEYS AND URETERS: The kidneys are normal in size, shape, and attenuation. No hydronephrosis, hydroureter, or obstructing calculi seen. No perinephric stranding. BLADDER: Unremarkable. GASTROINTESTINAL TRACT: There is a thick-walled appearance of the proximal ascending colon with adjacent stranding, suspicious for colitis. No evidence of bowel obstruction. The appendix is unremarkable. No free fluid or free air is seen. ABDOMINAL WALL: Small fat-containing left inguinal hernia. LYMPH NODES: Normal. VASCULAR: Unremarkable. PELVIC VISCERA: Unremarkable. OSSEOUS STRUCTURES: Degenerative changes are noted in the spine. CT/CT abdomen pelvis w con IMPRESSION: Thick-walled appearance of the ascending colon with adjacent stranding, suspicious for colitis. Correlation with recent or followup colonoscopy is advised to exclude an underlying mass lesion.
--- NOTE | ~2020-12-19 | XR_ITS ---
EXAMINATION: XR CHEST CLINICAL INFORMATION: Cough COMPARISON: 11/08/2020 TECHNIQUE: 2 views of the chest were obtained. FINDINGS: Lung volumes are symmetric. No focal consolidation is seen. No evidence of pneumothorax, pleural effusion, or pulmonary edema. The cardiomediastinal contour is unremarkable. No acute osseous findings are seen. XR/XR chest 2V IMPRESSION: No acute cardiopulmonary findings.
[2020-12-19 22:17] VITALS: BP 140/68; PULSE 98; RESP 18; TEMP 38.9; O2SAT 95; BMI 21.1
[2020-12-19 22:56] LABS: COVID-19 Test Negative (Negative)
[2020-12-20 00:58] VITALS: TEMP 37.9
[2020-12-20 00:58] LABS: Basophils Percent Auto 0.1 % (0-2); Hematocrit 41.8 % (42-52); Hemoglobin 14.2 g/dl (14.0-18.0); Imm Gran Abs Auto 0.02 X10*3/uL (0.00-0.03); Imm Gran Pct Auto 0.2 % (0.0-0.4); Lymphocytes Absolute Auto 0.9 X10*3/uL (1.2-4.9); Lymphocytes Percent Auto 9.4 % (20-40); MANUAL DIFF FLAG NO; Mean Corpuscular Hemoglobin 29.5 pg (27.0-33.0); Mean Corpuscular Volume 86.7 fL (80-98); Mean Platelet Volume 9.5 fL (9.4-12.4); Monocytes Absolute Auto 0.9 X10*3/uL (0.1-1.2); Monocytes Percent Auto 9.8 % (2-11); Neutrophils Absolute Auto 7.4 X10*3/uL (2.0-8.3); Neutrophils Percent Auto 80.5 % (45-73); Platelet Count 190 X10*3/uL (160-400); Red Blood Count 4.82 X10*6/uL (4.60-5.80); Red Cell Distribution Width 13.2 % (11.0-16.0); White Blood Count 9.3 X10*3/uL (4.8-10.8)
[2020-12-20 01:12] LABS: Lactic Acid 0.9 mmol/L (0.5-2.0)
[2020-12-20 01:26] LABS: Alanine Aminotransferase 37 U/L (0-40); Albumin Level 4.2 g/dL (3.5-5.0); Alkaline Phosphatase 58 U/L (39-117); Anion Gap 14 (12-20); Aspartate Amino Transferase 32 U/L (5-37); Bilirubin Total 0.5 mg/dL (0.0-1.0); Blood Urea Nitrogen 21 mg/dL (9-16); Calcium 8.9 mg/dL (8.4-10.2); Carbon Dioxide 28 mmol/L (22-29); Chloride 99 mmol/L (96-108); Creatinine Clr Calc Pharmacy 69.5; Estimated Glomerular Filt Rate > 60; Glucose Random 128 mg/dL (60-115); Lipase 31 U/L (8-78); Potassium 4.1 mmol/L (3.3-5.1); Sodium 137 mmol/L (135-145)
[2020-12-20] MEDS: iohexoL 350 MG/ML 100 ML INFUS..BTL 85 ML IV (02:10)
[2020-12-20] MEDS: 0.9 % Sodium Chloride 1,000 ML 999 ML IV (02:15)
[2020-12-20 02:36] VITALS: TEMP 37.3
[2020-12-20 02:39] LABS: Glucose Urine UA NEG (NEG); Leukocyte Esterase Urine NEG (NEG); Nitrite Urine NEG (NEG); PH 5.5 (5.0-8.0); Specific Gravity - Urine 1.025 (1.005-1.025); Urine Blood NEG (NEG); Urine Ketones NEG (NEG); Urine Protein NEG (NEG-TRACE)
[2020-12-20 02:45] LABS: Appearance Urine CLEAR; Color Urine DARK YELLOW
--- NOTE | 2020-12-20 02:53 | ED_ITS ---
HPI - Abdominal Pain General Chief Complaint: Fever Stated Complaint: headache Time Seen by Provider: 12/19/20 23:31 Source: patient Mode of arrival: ambulatory History of Present Illness HPI narrative: 55-year-old male with history of ulcerative colitis who presents with abdominal discomfort that he describes as being upset followed by diarrhea, nonbloody, as well as headaches and then began developing fevers. This has also been associated with some nausea but patient denies any vomiting at this time. He denies any urinary symptoms and states that he has had a colonoscopy approximately 2-3 weeks ago when he had multiple polyps removed. Related Data Home Medications Medication Instructions Recorded Confirmed aspirin 81 mg PO DAILY 12/20/20 12/20/20 atorvastatin 80 mg PO DAILY 12/20/20 12/20/20 lisinopril 20 mg PO DAILY 12/20/20 12/20/20 metoprolol tartrate 25 mg PO BID 12/20/20 12/20/20 triamcinolone acetonide 1 appl TOPICAL BID 12/20/20 12/20/20 Previous Rx's Medication Instructions Recorded amoxicillin-pot clavulanate 1 tab PO Q12H 10 Days #20 tab 12/20/20 [Augmentin] Allergies Allergy/AdvReac Type Severity Reaction Status Date / Time No Known Allergies Allergy Verified 12/19/20 22:15 [No Known Allergies*] Review of Systems Review of Systems Pertinent positives and negatives as stated in HPI 10 point review of systems is otherwise negative. Physical Exam Vital Signs: Vital Signs: Last Vital Signs Temp 99.1 F 12/20/20 02:36 Pulse 98 12/19/20 22:17 Resp 18 12/19/20 22:17 BP 140/68 H 12/19/20 22:17 Pulse Ox 95 12/19/20 22:17 Body Mass Index 21.1 VITAL SIGNS: Reviewed. GENERAL: Well developed, well nourished, in no acute distress. HEAD: Normocephalic/atraumatic EYES: PERRLA, EOMI OROPHARYNX: no oral lesions noted, posterior pharynx clear NECK: Supple, no adenopathy LUNGS: Normal breath sounds. No adventitious sounds or accessory muscle use. SpO2<95> CARDIOVASCULAR: Regular rate and rhythm without noted murmurs ABDOMEN: Soft, mild abdominal tenderness without rebound, non-distended with bowel sounds. NEUROLOGIC: Alert and oriented x 4. Course Course Course Narrative: 55-year-old male with history and clinical presentation suggestive of diverticulitis, less likely SBO and low clinical suspicion for UTI or renal colic. On review of all investigations patient has findings consistent with colitis and given his history of ulcerative colitis in combination with fever, patient will be given antibiotics and does not meet criteria for sepsis fluids at this time. On re-evaluation patient is able to tolerate oral intake without difficulty and he will be discharged on a course of antibiotics for his colitis with strict instructions to follow-up with his primary care provider. MDM - Abdominal Pain Lab Data Result diagrams: 12/20/20 00:51 12/20/20 00:51 Labs: Lab Results 12/19/20 12/20/20 12/20/20 Range/Units 22:31 00:51 00:51 WBC 9.3 (4.8-10.8) X10*3/uL RBC 4.82 (4.60-5.80) X10*6/uL Hgb 14.2 (14.0-18.0) g/dl Hct 41.8 L (42-52) % MCV 86.7 (80-98) fL MCH 29.5 (27.0-33.0) pg MCHC 34.0 (31.0-36.0) g/dl RDW 13.2 (11.0-16.0) % Plt Count 190 (160-400) X10*3/uL MPV 9.5 (9.4-12.4) fL Immature Gran % (Auto) 0.2 (0.0-0.4) % Neut % (Auto) 80.5 H (45-73) % Lymph % (Auto) 9.4 L (20-40) % Tyrrell % (Auto) 9.8 (2-11) % Eos % (Auto) 0.0 (0-4) % Baso % (Auto) 0.1 (0-2) % Lymph # (Auto) 0.9 L (1.2-4.9) X10*3/uL Tyrrell # (Auto) 0.9 (0.1-1.2) X10*3/uL Eos # (Auto) 0.0 (0.0-0.4) X10*3/uL Baso # (Auto) 0.0 (0.0-0.2) X10*3/uL Abs Immat Gran (auto) 0.02 (0.00-0.03) X10*3/uL Absolute Neuts (auto) 7.4 (2.0-8.3) X10*3/uL Absolute Nucleated RBC 0.000 (0.0-0.012) X10*3/uL Nucleated RBC % (auto) 0.0 (0.0-0.2) /100WBC Sodium 137 (135-145) mmol/L Potassium 4.1 (3.3-5.1) mmol/L Chloride 99 (96-108) mmol/L Carbon Dioxide 28 (22-29) mmol/L Anion Gap 14 (12-20) BUN 21 H (9-16) mg/dL Creatinine 1.04 (0.5-1.4) mg/dL Estim Creat Clear Calc 69.5 Estimated GFR > 60 Random Glucose 128 H D (60-115) mg/dL Lactic Acid (0.5-2.0) mmol/L Calcium 8.9 D (8.4-10.2) mg/dL Total Bilirubin 0.5 (0.0-1.0) mg/dL AST 32 (5-37) U/L ALT 37 (0-40) U/L Alkaline Phosphatase 58 (39-117) U/L Total Protein 7.0 (6.5-8.0) g/dL Albumin 4.2 (3.5-5.0) g/dL Lipase 31 (8-78) U/L Urine Color Urine Appearance Urine pH (5.0-8.0) Ur Specific [place] (1.005-1.025) Urine Protein (NEG-TRACE) MG/DL Urine Glucose (UA) (NEG) MG/DL Urine Ketones (NEG) MG/DL Urine Blood (NEG) Urine Nitrite (NEG) Ur Leukocyte Esterase (NEG) COVID-19 ([facility]) Negative (Negative) COVID-19 Clin Com See Note 12/20/20 12/20/20 Range/Units 00:51 02:34 WBC (4.8-10.8) X10*3/uL RBC (4.60-5.80) X10*6/uL Hgb (14.0-18.0) g/dl Hct (42-52) % MCV (80-98) fL MCH (27.0-33.0) pg MCHC (31.0-36.0) g/dl RDW (11.0-16.0) % Plt Count (160-400) X10*3/uL MPV (9.4-12.4) fL Immature Gran % (Auto) (0.0-0.4) % Neut % (Auto) (45-73) % Lymph % (Auto) (20-40) % Tyrrell % (Auto) (2-11) % Eos % (Auto) (0-4) % Baso % (Auto) (0-2) % Lymph # (Auto) (1.2-4.9) X10*3/uL Tyrrell # (Auto) (0.1-1.2) X10*3/uL Eos # (Auto) (0.0-0.4) X10*3/uL Baso # (Auto) (0.0-0.2) X10*3/uL Abs Immat Gran (auto) (0.00-0.03) X10*3/uL Absolute Neuts (auto) (2.0-8.3) X10*3/uL Absolute Nucleated RBC (0.0-0.012) X10*3/uL Nucleated RBC % (auto) (0.0-0.2) /100WBC Sodium (135-145) mmol/L Potassium (3.3-5.1) mmol/L Chloride (96-108) mmol/L Carbon Dioxide (22-29) mmol/L Anion Gap (12-20) BUN (9-16) mg/dL Creatinine (0.5-1.4) mg/dL Estim Creat Clear Calc Estimated GFR Random Glucose (60-115) mg/dL Lactic Acid 0.9 (0.5-2.0) mmol/L Calcium (8.4-10.2) mg/dL Total Bilirubin (0.0-1.0) mg/dL AST (5-37) U/L ALT (0-40) U/L Alkaline Phosphatase (39-117) U/L Total Protein (6.5-8.0) g/dL Albumin (3.5-5.0) g/dL Lipase (8-78) U/L Urine Color DARK YELLOW Urine Appearance CLEAR Urine pH 5.5 (5.0-8.0) Ur Specific [place] 1.025 (1.005-1.025) Urine Protein NEG (NEG-TRACE) MG/DL Urine Glucose (UA) NEG (NEG) MG/DL Urine Ketones NEG (NEG) MG/DL Urine Blood NEG (NEG) Urine Nitrite NEG (NEG) Ur Leukocyte Esterase NEG (NEG) COVID-19 ([facility]) (Negative) COVID-19 Clin Com Discharge Plan Discharge Clinical Impression: Colitis Patient Disposition: Home, Self-Care Instructions: Colitis (ED) Additional Instructions: 1. Resume all home medications as prescribed. 2. Increase fluid hydration especially with water. 3. Follow-up with your primary care provider in the next 2-3 days for re-evaluation. Return to the ER for any acute worsening of symptoms. Prescriptions: New amoxicillin-pot clavulanate [Augmentin] 875-125 mg tablet 1 tab PO Q12H 10 Days Qty: 20 RF: 0 No Action atorvastatin 80 mg Tablet 80 mg PO DAILY RF: 0 triamcinolone acetonide 0.5 % cream 1 appl topical BID RF: 0 lisinopril 20 mg Tablet 20 mg PO DAILY RF: 0 aspirin 81 mg Tablet,Delayed Release (Dr/Ec) 81 mg PO DAILY RF: 0 metoprolol tartrate 25 mg Tablet 25 mg PO BID RF: 0 Referrals: Nilsa Sexton MD [Primary Care Provider] - 2 days (Re-evaluation after diagnosed with colitis on 12/20 and sent home with 10 days of Augmentin.) [facility] Past Medical History Source: nursing notes reviewed Medical History Back pain COVID-19 GERD (gastroesophageal reflux disease) Hypertension Lacunar stroke Obesity On beta philip at home Psoriasis Sleep apnea with use of continuous positive airway pressure (CPAP) Ulcerative colitis Surgical History History of esophagogastroduodenoscopy (EGD) Hx of colonoscopy No pertinent past surgical history Family History Family History Father No problems noted. Mother No problems noted. Sister No problems noted. Sister No problems noted. Sister Kidney replaced by transplant Brother No problems noted. Brother No problems noted. Brother No problems noted. Brother Diabetes Son No problems noted. Daughter No problems noted. Social History Social History Household Members: None Housing: Apartment Are you a primary career development engineer to a significant other at home: No Do you presently have visiting nurse or other home services: No Alcohol intake: never Advance Directives: No Advance Directives Information Provided: No service: No Current occupational status: employed Current occupation: [employer]
[2020-12-20] MEDS: Piperacillin Sodium/Tazobactam 3.375 GM in 0.9 % Sodium Chloride 50 ML IV (03:13)
[2020-12-20] MEDS: Acetaminophen 325 MG TABLET 975 MG PO (05:17)
[2020-12-20] MEDS: Ibuprofen 400 MG TABLET PO (05:17)
== END 2020-12-21 10:56 | disposition home or self-care (01) ==
PROVIDERS: Emergency Provider Student in an Organized Health Care Education/Training Program; PCP Internal Medicine
DX: K52.9 Noninfective gastroenteritis and colitis, unspecified (principal); Z20.822 Contact with and (suspected) exposure to COVID-19; R50.9 Fever, unspecified; I10 Essential (primary) hypertension
CPT/HCPCS: 36415; 71046; 74177; 80053; 81003; 83605; 83690; 85025; 87040; 87635; 96361; 96365; 99284; J2543; Q9967

== ENCOUNTER → 2020-12-23 20:26 | Outpatient (REF) | payer OTHER, SELFPAY | LOC: HO.SL 20:26 | PROVIDERS: Visit Provider Internal Medicine | DX: G47.33 Obstructive sleep apnea (adult) (pediatric) (principal) | CPT/HCPCS: 95811 ==

== ENCOUNTER 2021-04-03 14:28 | Emergency (ER) | payer OTHER, SELFPAY ==
[2021-04-03 14:31] VITALS: BP 158/78; PULSE 71; RESP 18; TEMP 36.5; O2SAT 97; BMI 36.0
--- NOTE | 2021-04-03 15:03 | ED_ITS ---
HPI - Extremity Injury (Lower) General Chief Complaint: Extremity Injury, Lower Stated Complaint: foot issue Time Seen by Provider: 04/03/21 15:03 Source: patient Mode of arrival: ambulatory Limitations: no limitations History of Present Illness HPI Narrative: 56-year-old male presents for numbness and tingling in his bilateral feet. States right is worse than left, is worse with walking. Patient has had the symptoms for 1 week, was seen yesterday at [facility], prescribed ammonium lactate which he has been using, and triamcinolone cream, which he has not been using. Related Data Home Medications Medication Instructions Recorded Confirmed aspirin 81 mg tablet,delayed 81 mg PO DAILY 12/20/20 12/20/20 release atorvastatin 80 mg tablet 80 mg PO DAILY 12/20/20 12/20/20 lisinopril 20 mg tablet 20 mg PO DAILY 12/20/20 12/20/20 metoprolol tartrate 25 mg tablet 25 mg PO BID 12/20/20 12/20/20 triamcinolone acetonide 0.5 % 1 appl TOPICAL BID 12/20/20 12/20/20 topical cream Previous Rx's Medication Instructions Recorded amoxicillin 875 mg-potassium 1 tab PO Q12H 10 Days #20 tab 12/20/20 clavulanate 125 mg tablet (Augmentin) Allergies Allergy/AdvReac Type Severity Reaction Status Date / Time No Known Allergies Allergy Verified 12/19/20 22:15 [No Known Allergies*] Review of Systems Review of Systems: Constitutional : No Weight loss, No Fever, No Chills, No Night Sweats,No Fatigue, No Malaise ENT/Mouth : No Hearing loss, No Ear Pain, No Nasal Congestion, NoSinus Pain, No Hoarseness, No sore throat, No Rhinorrhea, NoSwallowing Difficulty Eyes: No Eye Pain, No Swelling, No Redness, No Foreign Body, NoDischarge, No Vision Changes Cardiovascular : No Chest Pain, No SOB, No Dyspnea on Exertion, NoOrthopnea, No Edema, No Palpitations Respiratory : No Cough, No Sputum, No Wheezing, No Smoke Exposure, No Dyspnea Gastrointestinal : No Nausea, No Vomiting, No Diarrhea, NoConstipation, No abdominal Pain, No Hematochezia, No Melena Musculoskeletal : No joint pain, No Myalgias, No Joint Swelling Skin : flakey dry skin to feet Neuro : parasthesias in bilateral feet Psych : No Anxiety/Panic, No Depression, No SI/HI/AH/VH, No Social Issues, Yes all other systems are reviewed and are negative [facility] Past Medical History Medical History Back pain COVID-19 GERD (gastroesophageal reflux disease) Hypertension Lacunar stroke Obesity On beta philip at home Psoriasis Sleep apnea with use of continuous positive airway pressure (CPAP) Ulcerative colitis Surgical History History of esophagogastroduodenoscopy (EGD) Hx of colonoscopy No pertinent past surgical history Family History Family History Father No problems noted. Mother No problems noted. Sister No problems noted. Sister No problems noted. Sister Kidney replaced by transplant Brother No problems noted. Brother No problems noted. Brother No problems noted. Brother Diabetes Son No problems noted. Daughter No problems noted. Social History Social History Household Members: None Housing: Apartment Are you a primary residential care facility manager to a significant other at home: No Do you presently have visiting nurse or other home services: No Alcohol intake: never Advance Directives: No Advance Directives Information Provided: No service: No Current occupational status: employed Current occupation: [employer] Physical Exam Vital Signs: Vital Signs: Last Vital Signs Temp 97.7 F 04/03/21 14:31 Pulse 71 04/03/21 14:31 Resp 18 04/03/21 14:31 BP 158/78 H 04/03/21 14:31 Pulse Ox 97 04/03/21 14:31 Body Mass Index 36.0 Const: General: cooperative, no acute distress, well developed, alert and awake Nutritional Appearance: well nourished Orientation/consciousness: patient oriented x3 Limitations: no limitations Eyes: Conjunctivae: conjunctivae normal Pupils: Equal, round and reactive pupils present EOM: EOMs intact bilaterally Neck: Neck: Yes full ROM, Yes no lymphadenopathy and Yes supple Resp: Effort & Inspection: normal respiratory effort and able to speak in complete sentences Auscultation: clear to auscultation bilaterally, no crackles, no rales, no rhonchi and no wheezes Cardio: Rate: regular rate Rhythm: regular rhythm Heart sounds: S1 normal heart sound present and S2 normal heart sound present Skin: Other: Bilateral flaky dry skin standing and mild redness to the plantar aspect of bilateral feet Neuro: General: patient oriented x3, tone normal and moves all extremities Cranial nerves: Yes Equal, round and reactive pupils present Extrem: Other: Bilateral feet have intact sensation, motor strength of ankle and toes, intact dorsal pedal pulses Psych: Appearance: grossly normal Affect: normal affect Attitude: cooperative Thought process: Normal thought process present Course Course Course Narrative: 56-year-old male presents for numbness and tingling in feet. Patient's blood glucose is 107. Doppler of both feet shows excellent pulses. Patient states he has only been using the ammonium lactate he was prescribed yesterday and not the triamcinolone cream. I counseled patient to use both creams, and follow-up with his primary care provider. MDM - Extremity Injury (Lower) Lab Data Labs: Lab Results 04/03/21 Range/Units 15:21 POC Glucose 107 (60-115) mg/dL Discharge Plan Discharge Clinical Impression: Xerosis of skin Patient Disposition: Home, Self-Care Additional Instructions: Please call your primary care provider for follow-up appointment from today's emergency room visit. Your prescribed 2 creams yesterday, the ammonium lactate and the triamcinolone. Please use BOTH those creams and give them at least a week to see if they work. Hopefully by that time he will have an appoint with your primary care provider, and evaluate if you need other treatment. Please return to emergency room for any new or concerning symptoms Prescriptions: No Action atorvastatin 80 mg Tablet 80 mg PO DAILY RF: 0 triamcinolone acetonide 0.5 % cream 1 appl topical BID RF: 0 lisinopril 20 mg Tablet 20 mg PO DAILY RF: 0 aspirin 81 mg Tablet,Delayed Release (Dr/Ec) 81 mg PO DAILY RF: 0 metoprolol tartrate 25 mg Tablet 25 mg PO BID RF: 0 amoxicillin-pot clavulanate [Augmentin] 875-125 mg tablet 1 tab PO Q12H 10 Days Qty: 20 RF: 0 Interventions: ED Discharge Assessment Last Done: 04/03/21 15:49 Discharge Date/Time: 04/03/21 15:50
[2021-04-03 15:26] LABS: Glucose, Whole Blood 107 mg/dL (60-115)
== END 2021-04-03 15:50 | disposition home or self-care (01) ==
PROVIDERS: Emergency Provider Emergency Medicine; PCP Internal Medicine
DX: L85.3 Xerosis cutis (principal); Z79.899 Other long term (current) drug therapy
CPT/HCPCS: 82947; 99283

== ENCOUNTER 2021-05-06 12:20 | Emergency (ER) | payer OTHER, SELFPAY ==
--- NOTE | 2021-05-06 | ECG_ITS ---
Test Reason : lightheaded/dizzy Blood Pressure : / mmHG Vent. Rate : 057 BPM Atrial Rate : 057 BPM P-R Int : 152 ms QRS Dur : 102 ms QT Int : 416 ms P-R-T Axes : 020 -03 014 degrees QTc Int : 404 ms Sinus bradycardia Incomplete right bundle branch block Minimal voltage criteria for LVH, may be normal variant ( R in aVL ) Borderline ECG No significant changes seen Referred By: Generic ED Physician Electronically Signed By:EMA SALAZAR MD
--- NOTE | ~2021-05-06 | CT_ITS ---
EXAMINATION: CT HEAD WITHOUT CONTRAST CLINICAL INFORMATION: Headache , blurry vision and hypertrophy. COMPARISON: None TECHNIQUE: Contiguous axial imaging was performed from the skull base to vertex without intravenous administration of contrast. This CT examination was performed using dose optimization techniques as appropriate, variously including the following: *Automated exposure control *Adjustment of mA and/or kV according to patient size (this includes techniques or standardized protocols for targeted exams where dose is matched to indication/reason for exam; i.e. extremities or head) *Use of iterative reconstruction technique DLP: 796 mGy-cm FINDINGS: There is no evidence of acute intracranial hemorrhage or territorial infarction. There is a small lacunar infarction left frontal lobe centrum semiovale. No abnormal mass effect or midline shift is seen. Locke to white matter differentiation is well preserved. No extra-axial fluid collections are identified. The ventricles are normal in size. There is no abnormal attenuation within the brain parenchyma. The osseous structures and soft tissues are normal. There is a small polyp or retention cyst bilateral maxillary sinuses. Rest of the paranasal sinuses and mastoid air cells are well-aerated. . CT/CT head/brain wo con IMPRESSION: No acute intracranial process seen. Bilateral maxillary sinus polyps or retention cysts.
[2021-05-06 12:58] VITALS: BP 158/82; PULSE 61; RESP 18; TEMP 36.7; O2SAT 97; BMI 35.7
--- NOTE | 2021-05-06 15:36 | ED.NEUROSD ---
HPI - Neuro Symptoms/Deficit General Chief Complaint: Neuro Symptoms/Deficit Stated Complaint: high bp Time Seen by Provider: 05/06/21 15:35 Source: patient Mode of arrival: ambulatory Limitations: no limitations History of Present Illness HPI Narrative: 56 y/o male with history of HTN, ulcerative colitis, psoriasis, obesity, CVA, FELICIA on CPAP who presents to the ER with elevated blood pressure. He reports not feeling well while at work today and he took his blood pressure and it was 172/100. He reports having blurry vision, headache, and pain in his right hand and posterior neck at that time. He reports initially starting to feel unwell with similar symptoms last night at 9pm with right hand pain and he felt like his hand was cold. His blood pressure was elevated at that time as well, 170s systolic. He reports being on lisinopril 20 mg daily and lopressor 25 mg bid for a long time, no new med changes and he has been complaint with all of his meds. He denies salt intake. He report increased anxiety at work today when is BP was elevated so he came to the ER for further evaluation. He denies any chest pains or SOB. No JOSE or leg swelling. Onset (ago): hour(s) Location: right arm Severity: mild Relieving factors: time and rest Context: gradual onset On Anticoagulants: No Treatments Prior to Arrival: Aspirin Related Data Home Medications Medication Instructions Recorded Confirmed aspirin 81 mg tablet,delayed 81 mg PO DAILY 12/20/20 12/20/20 release atorvastatin 80 mg tablet 80 mg PO DAILY 12/20/20 12/20/20 lisinopril 20 mg tablet 20 mg PO DAILY 12/20/20 12/20/20 metoprolol tartrate 25 mg tablet 25 mg PO BID 12/20/20 12/20/20 triamcinolone acetonide 0.5 % 1 appl TOPICAL BID 12/20/20 12/20/20 topical cream Previous Rx's Medication Instructions Recorded amoxicillin 875 mg-potassium 1 tab PO Q12H 10 Days #20 tab 12/20/20 clavulanate 125 mg tablet (Augmentin) lisinopril 30 mg tablet 30 mg PO DAILY #14 tab 05/06/21 Allergies Allergy/AdvReac Type Severity Reaction Status Date / Time No Known Allergies Allergy Verified 05/06/21 12:58 [No Known Allergies*] Review of Systems Review of Systems: Constitutional: No Fever, No Chills ENT/Mouth: No sore throat, No Rhinorrhea, No Swallowing Difficulty Eyes: No Eye Pain, No Swelling, No Redness, +Blurry vision (now resolved) Cardiovascular: No Chest Pain, No SOB, No Orthopnea, No Edema Respiratory: No Cough, No Sputum, No Wheezing, No dyspnea Gastrointestinal: No Nausea, No Vomiting, No Diarrhea, No abdominal Pain Genitourinary: No Dysuria, No Urinary Frequency, No Hematuria Musculoskeletal: + joint pain, + Myalgias Skin: No Skin Lesions, No rash Neuro: No Weakness, No Numbness, No Dizziness, +Headache Psych: + Anxiety/Panic, No Depression Heme/Lymph: No Bruising, No Lymphadenopathy Endocrine: No Polyuria, No Polydipsia PMFSH Past Medical History Medical History Back pain COVID-19 GERD (gastroesophageal reflux disease) Hypertension Lacunar stroke Obesity On beta philip at home Psoriasis Sleep apnea with use of continuous positive airway pressure (CPAP) Ulcerative colitis Surgical History History of esophagogastroduodenoscopy (EGD) Hx of colonoscopy No pertinent past surgical history Family History Family History Father No problems noted. Mother No problems noted. Sister No problems noted. Sister No problems noted. Sister Kidney replaced by transplant Brother No problems noted. Brother No problems noted. Brother No problems noted. Brother Diabetes Son No problems noted. Daughter No problems noted. Social History Social History Household Members: None Housing: Apartment Are you a primary dog day care attendant to a significant other at home: No Do you presently have visiting nurse or other home services: No Alcohol intake: never Patient Tobacco Use Status: Never used Tobacco Use of substances other than those prescribed or required for medical reasons: No Advance Directives: No Advance Directives Information Provided: Yes service: No Current occupational status: employed Current occupation: [employer] Physical Exam Vital Signs: Vital Signs: Last Vital Signs Temp 98.4 F 05/06/21 16:03 Pulse 54 05/06/21 16:03 Resp 18 05/06/21 16:03 BP 158/80 H 05/06/21 16:03 Pulse Ox 99 05/06/21 16:03 Body Mass Index 35.7 Appearance: Alert. Oriented X3. No acute distress. Eyes: Pupils equal, round and reactive to light. ENT: Pharynx normal. Neck: Normal inspection. Neck supple. Cervical spinal tenderness throughout with soft tissue tenderness of paraspinous muscles. Normal ROM CVS: Normal heart rate and rhythm. Pulses normal. Respiratory: No respiratory distress. Breath sounds normal. Abdomen: Soft and nontender. +BS x4 Skin: Skin warm and dry. Normal skin color. Normal skin turgor. No rashes. Extremities: No lower extremity edema. Both hands are cool but well perfused with 2+ radial pulse, normal hand grasp. Neuro: Oriented X 3. No motor deficit. No sensory deficit. Speaks in complete sentences. Steady gait. Course Course Course Narrative: 56 y/o male with history of hypertension, psoriasis, GERD, obesity, FELICIA who presents to the ER with symptomatic hypertension. He reports blood pressure in the 170 systolic associated with headache, dizziness, blurry vision, generally and feeling unwell. He is compliant with medications. He is not on anticoagulation. He has no focal deficits on exam. He reports nontraumatic right hand pain that is improved since last night. His blood pressure on arrival was 158/82 with heart rate of 61. He is afebrile and nontoxic appearing. Will proceed with EKG, lab workup in CT of his head for further evaluation. Doubt ICH. Reevaluation(s) Reevaluation #1: EKG without STEMI, unchanged from his previous back in October. He continues to be chest pain free. His repeat blood pressure is 158/80. His lab workup is unremarkable. CT scan showed no acute intracranial process. Patient was reassured about his blood pressure and normal findings. He reports that his PCP office a couple weeks ago his blood pressure was elevated 150s as well. He would like to go up on his medications. Will plan to increase his lisinopril to 30 mg today and have him follow-up with his primary care doctor for further evaluation. His heart rates are in the 50s-60s so would not want to increase the Lopressor at this time. Patient agrees to follow-up with his primary care doctor and will come back to the ER if any signs or symptoms worsen. [facility] - Neuro Symptoms/Deficit Medical Records Attestation: I reviewed the patient's medical records. Lab Data Attestation: I reviewed the patient's lab results. Result diagrams: 05/06/21 16:11 05/06/21 16:11 Labs: Lab Results 05/06/21 05/06/21 05/06/21 Range/Units 16:07 16:11 16:11 WBC 7.8 (4.8-10.8) X10*3/uL RBC 5.21 (4.60-5.80) X10*6/uL Hgb 15.1 (14.0-18.0) g/dl Hct 44.4 (42-52) % MCV 85.2 (80-98) fL MCH 29.0 (27.0-33.0) pg MCHC 34.0 (31.0-36.0) g/dl RDW 13.4 (11.0-16.0) % Plt Count 203 (160-400) X10*3/uL MPV 9.3 L (9.4-12.4) fL Immature Gran % (Auto) 0.3 (0.0-0.4) % Neut % (Auto) 64.8 (45-73) % Lymph % (Auto) 22.2 (20-40) % [place] % (Auto) 11.6 H (2-11) % Eos % (Auto) 0.8 (0-4) % Baso % (Auto) 0.3 (0-2) % Lymph # (Auto) 1.7 (1.2-4.9) X10*3/uL [place] # (Auto) 0.9 (0.1-1.2) X10*3/uL Eos # (Auto) 0.1 (0.0-0.4) X10*3/uL Baso # (Auto) 0.0 (0.0-0.2) X10*3/uL Abs Immat Gran (auto) 0.02 (0.00-0.03) X10*3/uL Absolute Neuts (auto) 5.1 (2.0-8.3) X10*3/uL Absolute Nucleated RBC 0.000 (0.0-0.012) X10*3/uL Nucleated RBC % (auto) 0.0 (0.0-0.2) /100WBC Sodium 139 (135-145) mmol/L Potassium 3.7 (3.3-5.1) mmol/L Chloride 102 (96-108) mmol/L Carbon Dioxide 28 (22-29) mmol/L Anion Gap 13 (12-20) BUN 19 H (9-16) mg/dL Creatinine 0.83 (0.5-1.4) mg/dL Estim Creat Clear Calc 117.6 Estimated GFR > 60 Random Glucose 88 (60-115) mg/dL Calcium 9.3 (8.4-10.2) mg/dL Urine Color YELLOW Urine Appearance CLEAR Urine pH 6.0 (5.0-8.0) Ur Specific [place] 1.025 (1.005-1.025) Urine Protein NEG (NEG-TRACE) MG/DL Urine Glucose (UA) NEG (NEG) MG/DL Urine Ketones NEG (NEG) MG/DL Urine Blood NEG (NEG) Urine Nitrite NEG (NEG) Ur Leukocyte Esterase NEG (NEG) ECG Data Attestation: I personally reviewed and interpreted this ECG as follows: ECG interpretation date: 05/06/21 Prior ECG tracings: available for review Interpretation: Sinus bradycardia, incomplete right bundle-branch block, heart rate 57 beats per minute, AL interval 152 MS. T-wave inversion in lead 3 which is old compared to prior. No ST segment elevations or depressions Discharge Plan Discharge Clinical Impression: Hypertension Qualifiers: Hypertension type: unspecified Qualified Code(s): I10 - Essential (primary) hypertension Patient Disposition: Home, Self-Care Instructions: Hypertension (ED) Additional Instructions: You lab workup today was unremarkable. Your EKG was unchanged. Recommend increasing your lisinopril to 30 mg per day. Follow up with your doctor in the next 2 weeks for further management. Monitor your blood pressure one-two times per day and keep a record for your doctor. If you develop new or worsening symptoms call 911 or come back to the ER for further evaluation. Prescriptions: New lisinopril 30 mg tablet 30 mg PO DAILY Qty: 14 RF: 0 No Action atorvastatin 80 mg Tablet 80 mg PO DAILY RF: 0 triamcinolone acetonide 0.5 % cream 1 appl topical BID RF: 0 lisinopril 20 mg Tablet 20 mg PO DAILY RF: 0 aspirin 81 mg Tablet,Delayed Release (Dr/Ec) 81 mg PO DAILY RF: 0 metoprolol tartrate 25 mg Tablet 25 mg PO BID RF: 0 amoxicillin-pot clavulanate [Augmentin] 875-125 mg tablet 1 tab PO Q12H 10 Days Qty: 20 RF: 0
[2021-05-06 16:03] VITALS: BP 158/80; PULSE 54; RESP 18; TEMP 36.9; O2SAT 99
[2021-05-06 16:14] LABS: MANUAL DIFF FLAG NO
[2021-05-06 16:16] LABS: Basophils Percent Auto 0.3 % (0-2); Eosinophils Absolute Auto 0.1 X10*3/uL (0.0-0.4); Eosinophils Percent Auto 0.8 % (0-4); Hematocrit 44.4 % (42-52); Hemoglobin 15.1 g/dl (14.0-18.0); Imm Gran Abs Auto 0.02 X10*3/uL (0.00-0.03); Imm Gran Pct Auto 0.3 % (0.0-0.4); Lymphocytes Absolute Auto 1.7 X10*3/uL (1.2-4.9); Lymphocytes Percent Auto 22.2 % (20-40); Mean Corpuscular Volume 85.2 fL (80-98); Mean Platelet Volume 9.3 fL (9.4-12.4); Monocytes Absolute Auto 0.9 X10*3/uL (0.1-1.2); Monocytes Percent Auto 11.6 % (2-11); Neutrophils Absolute Auto 5.1 X10*3/uL (2.0-8.3); Neutrophils Percent Auto 64.8 % (45-73); Platelet Count 203 X10*3/uL (160-400); Red Blood Count 5.21 X10*6/uL (4.60-5.80); Red Cell Distribution Width 13.4 % (11.0-16.0); White Blood Count 7.8 X10*3/uL (4.8-10.8)
[2021-05-06 16:17] LABS: Appearance Urine CLEAR; Color Urine YELLOW; Glucose Urine UA NEG (NEG); Leukocyte Esterase Urine NEG (NEG); Nitrite Urine NEG (NEG); Specific Gravity - Urine 1.025 (1.005-1.025); Urine Blood NEG (NEG); Urine Ketones NEG (NEG); Urine Protein NEG (NEG-TRACE)
[2021-05-06 16:29] LABS: Anion Gap 13 (12-20); Blood Urea Nitrogen 19 mg/dL (9-16); Calcium 9.3 mg/dL (8.4-10.2); Carbon Dioxide 28 mmol/L (22-29); Chloride 102 mmol/L (96-108); Creatinine Clr Calc Pharmacy 117.6; Estimated Glomerular Filt Rate > 60; Glucose Random 88 mg/dL (60-115); Potassium 3.7 mmol/L (3.3-5.1); Sodium 139 mmol/L (135-145)
--- NOTE | 2021-05-06 17:57 | PC.NURSE ---
Pt alert and oriented x4, calm and cooperative. Pt denies pain, states neck pain has improved. Pt denies blurred vision or dizziness at this time. Pt ambulating steady on his feet. Pt educated on dc and stated an understanding. Pt ambulated to private car. No IV in place. Vitals stable.
[2021-05-06 18:19] LABS: COVID-19 Test Negative (Negative); IDNOW Serial# 9DD0AD1C
== END 2021-05-06 18:04 | disposition home or self-care (01) ==
PROVIDERS: Physician Assistant; Emergency Provider Emergency Medicine; PCP Internal Medicine
DX: I10 Essential (primary) hypertension (principal); Z79.899 Other long term (current) drug therapy; Z20.822 Contact with and (suspected) exposure to COVID-19
CPT/HCPCS: 36415; 70450; 80048; 81003; 85025; 87635; 93005; 99284; 99285

== ENCOUNTER → 2021-05-14 08:11 | Outpatient (BNVA) | payer OTHER, SELFPAY | PROVIDERS: PCP Internal Medicine; Referring Provider Internal Medicine; Visit Provider Internal Medicine ==

== ENCOUNTER 2021-05-16 08:13 | Outpatient (REF) | payer OTHER, SELFPAY ==
--- NOTE | ~2021-05-16 | US_ITS ---
EXAMINATION: COLOR-FLOW DUPLEX IMAGING OF THE BILATERAL LOWER EXTREMITY ARTERIAL SYSTEM. VELOCITY MEASUREMENTS THROUGHOUT THE FEMORAL ARTERIES WITH ANKLE-BRACHIAL PERIPHERAL ARTERIAL TESTING. Interventional Radiologist: Bernabe Owusu M.D., F.S.I.R., F.A.C.R. CLINICAL INFORMATION: This is a 56-year-old male with peripheral vascular disease, unspecified. RIGHT FEMORAL RUNOFF VELOCITIES: The right common femoral artery measures 108 cm/s and triphasic. The right profunda femoral artery is 66 cm/s and is triphasic. Right proximal superficial femoral artery measures 113 cm/s and triphasic. Mid superficial femoral artery is 103 cm/s and triphasic. Distal right superficial femoral artery measures 80 cm/s and is triphasic. Right popliteal velocity measures 62 cm/s and is triphasic. The posterior tibial artery velocity measures 76 cm/s and was triphasic. LEFT FEMORAL RUNOFF VELOCITIES: The left common femoral artery measures 83 cm/s and triphasic. The left profunda femoral artery is 65 cm/s and is triphasic. Left proximal superficial femoral artery measures 138 cm/s and triphasic. Mid superficial femoral artery is 83 cm/s and triphasic. Distal left superficial femoral artery measures 58 cm/s and is triphasic. Left popliteal velocity measures 57 cm/s and is triphasic. The posterior tibial artery velocity measures 51 cm/s and was triphasic. US/US arterial duplex LE BI IMPRESSION: 1. Normal bilateral resting peripheral arterial testing without evidence of hemodynamically significant stenosis.
== END 2021-05-16 08:14 | disposition home or self-care (01) ==
LOC: HO.US 08:13
PROVIDERS: PCP Internal Medicine; Visit Provider Internal Medicine
DX: I73.9 Peripheral vascular disease, unspecified (principal); I10 Essential (primary) hypertension
CPT/HCPCS: 93925

== ENCOUNTER → 2021-05-22 09:21 | Outpatient (BNVA) | payer OTHER, SELFPAY | PROVIDERS: PCP Internal Medicine; Visit Provider Surgery Vascular Surgery | DX: I73.9 Peripheral vascular disease, unspecified (principal) | CPT/HCPCS: 99202 ==

== ENCOUNTER 2021-06-02 17:46 | Emergency (ER) | payer OTHER, SELFPAY ==
--- NOTE | ~2021-06-02 | CT_ITS ---
EXAMINATION: CT ANGIOGRAM NECK AND HEAD CLINICAL INFORMATION: Posterior headache and right eye blurry since this morning COMPARISON: Head CT 05/06/2021 TECHNIQUE: Initial noncontrast head CT was performed. Test bolus sequences followed by intravenous administration 70 mL of Omnipaque 350. Helical imaging was performed in the axial plane from the thoracic inlet to the skull vertex. Delayed postcontrast imaging of the head was also performed. The data was processed at the microbiology technologist's workstation for generation of MIP sequences. Angled MIPs and volume rendered reformatted images were also generated at an offline 3D workstation. Stenoses are assessed in accordance with NASCET criteria unless otherwise indicated. DOSE LOWERING TECHNIQUES: This CT examination was performed using dose optimization techniques as appropriate, variously including the following: - Automated exposure control - Adjustment of mA and/or kV according to patient size (this includes techniques or standardized protocols for targeted exams were dose is matched to indication/reason for exam; i.e. extremities or head) - Use of iterative reconstruction technique DLP: 2750 mGy-cm FINDINGS: Neck CTA: There is a classic 3 vessel branching pattern of the aortic arch. Normal appearance of the visualized aortic arch and proximal branches. No evidence of stenosis at the branch origins. Both vertebral arteries are widely patent throughout their extracranial cervical course. Normal appearance of the common and internal carotid arteries without focal stenosis. Brain CTA: Normal appearance of the intradural vertebral arteries. Normal appearance of the basilar and superior cerebellar arteries. Normal appearance of the posterior cerebral arteries bilaterally. Normal appearance of the intradural internal carotid arteries without focal stenosis. Normal appearance of the anterior cerebral and middle cerebral arteries without focal occlusion or stenosis. Normal anterior communicating artery. Normal arborization of the middle cerebral arteries. CT Head: No intracranial mass, hemorrhage, extra-axial collection, or midline shift. The gabriel-white matter differentiation is preserved. Chronic lacunar infarct is noted in the left centrum semiovale. No pathologic intra-axial enhancement or regional oligemia. No hydrocephalus. Mucous retention cyst noted in the bilateral maxillary sinuses. The mastoid air cells are well-aerated. CT Neck: The thyroid gland and remaining cervical soft tissues are normal in appearance. There is degenerative change at the atlantodens articulation. There is disc space narrowing in the lower cervical spine. Multilevel endplate osteophytes are noted. Upper Chest: No abnormalities in the visualized lung apices or upper mediastinum. CT/CT angio head neck IMPRESSION: No acute intracranial findings. No hemodynamically significant stenosis in the major arteries of the neck. No large vessel occlusion or significant stenosis in the intracranial circulation.
[2021-06-02 18:27] VITALS: BP 166/71; PULSE 60; RESP 18; TEMP 36.7; O2SAT 97; BMI 36.5
--- NOTE | 2021-06-02 22:39 | ED_ITS ---
HPI - Headache General Chief Complaint: Headache Stated Complaint: neck pain back pain blurry vision Time Seen by Provider: 06/02/21 22:38 Source: patient Mode of arrival: ambulatory History of Present Illness HPI Narrative: 56-year-old male who presents with a week and half of a headache at the back of his head that extends down into bilateral paraspinal neck and across and shoulders and is not associated with numbness/tingling/weakness into either upper extremity. Patient denies fever, chills, sore throat, injury. In addition, patient states that this morning he woke up and felt that his right eye was ?blurry? despite using his glasses but he has forgotten his glasses. He denies any eye pain. Related Data Home Medications Medication Instructions Recorded Confirmed aspirin 81 mg tablet,delayed 81 mg PO DAILY 12/20/20 05/14/21 release metoprolol tartrate 25 mg tablet 25 mg PO BID 12/20/20 05/14/21 triamcinolone acetonide 0.5 % 1 appl TOPICAL BID 12/20/20 05/14/21 topical cream gabapentin 100 mg capsule 100 mg PO BID 05/22/21 pantoprazole 40 mg tablet,delayed 40 mg PO DAILY 05/22/21 release Previous Rx's Medication Instructions Recorded lisinopril 30 mg tablet 30 mg PO DAILY #14 tab 05/06/21 Allergies Allergy/AdvReac Type Severity Reaction Status Date / Time No Known Allergies Allergy Verified 06/02/21 18:27 [No Known Allergies*] Review of Systems Review of Systems: Pertinent positives and negatives as stated in HPI 10 point review of systems is otherwise negative. [facility] Past Medical History Source: nursing notes reviewed Medical History Back pain COVID-19 GERD (gastroesophageal reflux disease) Hypertension Lacunar stroke Migraines Obesity On beta philip at home Psoriasis Sleep apnea with use of continuous positive airway pressure (CPAP) Ulcerative colitis Surgical History History of esophagogastroduodenoscopy (EGD) Hx of colonoscopy No pertinent past surgical history Family History Family History Father No problems noted. Mother No problems noted. Sister No problems noted. Sister No problems noted. Sister Kidney replaced by transplant Brother No problems noted. Brother No problems noted. Brother No problems noted. Brother Diabetes Son No problems noted. Daughter No problems noted. Social History Social History Household Members: None Housing: Apartment Are you a primary palliative care coordinator to a significant other at home: No Do you presently have visiting nurse or other home services: No Alcohol intake: never Patient Tobacco Use Status: Never used Tobacco Advance Directives: No Advance Directives Information Provided: Yes service: No Current occupational status: employed Current occupation: [employer] Physical Exam Vital Signs: Vital Signs: Last Vital Signs Temp 98.1 F 06/02/21 18: Pulse 60 06/02/21 18: Resp 18 06/02/21 18: BP 166/71 H 06/02/21 18: Pulse Ox 97 06/02/21 18: Body Mass Index 36.5 VITAL SIGNS: Reviewed. GENERAL: Well developed, well nourished, in no acute distress. HEAD: Normocephalic/atraumatic, EYES: PERRLA, EOMI intact without pain, no nystagmus EARS: Ext canals without abnormality NOSE: Nares patent bilateral OROPHARYNX: no oral lesions noted, posterior pharynx clear and non-erythematous without noted tonsillar enlargement/erythema/exudates NECK: Supple, no adenopathy, no midline cervical spine tenderness, pain on palpation of bilateral paraspinal in a crossed trapezius and suspicious for muscle spasm. LUNGS: Normal breath sounds. No adventitious sounds or accessory muscle use. SpO2<97> CARDIOVASCULAR: Regular rate and rhythm without noted murmurs, no JVD or lower extremity edema. ABDOMEN: Soft, non-tender, non-distended with bowel sounds. MUSCULOSKELETAL: No tenderness, deformities, or effusions noted on gross inspection. EXTREMITIES: No cyanosis, clubbing or edema. SKIN: Inspection of the skin reveals no rashes NEUROLOGIC: Alert and oriented x 4. Strength and sensation to light touch were grossly intact x 4, no facial asymmetry, no pronator drift, cranial nerves 2-12 grossly intact Course Course Course Narrative: This is a 56-year-old male with history and clinical presentation suspicious for tension headache with muscle spasm, however due to blurry vision that patient notes in the right eye and history of lacunar infarct will evaluate for subacute (started this morning) infarct. Review of all investigations negative for acute findings and on re-evaluation patient is had good resolution of headache. All results and findings were discussed with him at bedside and knows he needs continue with the combination analgesics and follow-up with his primary care provider. MDM - Headache Lab Data Result diagrams: 06/02/21 23:01 06/02/21 23:01 Labs: Lab Results 06/02/21 06/02/21 06/02/21 Range/Units 23:01 23:01 23:01 WBC 8.6 (4.8-10.8) X10*3/uL RBC 5.13 (4.60-5.80) X10*6/uL Hgb 15.1 (14.0-18.0) g/dl Hct 44.0 (42.0-52.0) % MCV 85.8 (80.0-98.0) fL MCH 29.4 (27.0-33.0) pg MCHC 34.3 (31.0-36.0) g/dl RDW 13.3 (11.0-16.0) % Plt Count 187 (160-400) X10*3/uL MPV 9.2 L (9.4-12.4) fL Immature Gran % (Auto) 0.2 (0.0-0.4) % Neut % (Auto) 63.5 (45-73) % Lymph % (Auto) 24.7 (20-40) % [place] % (Auto) 10.5 (2-11) % Eos % (Auto) 0.9 (0-4) % Baso % (Auto) 0.2 (0-2) % Lymph # (Auto) 2.1 (1.2-4.9) X10*3/uL [place] # (Auto) 0.9 (0.1-1.2) X10*3/uL Eos # (Auto) 0.1 (0.0-0.4) X10*3/uL Baso # (Auto) 0.0 (0.0-0.2) X10*3/uL Abs Immat Gran (auto) 0.02 (0.00-0.03) X10*3/uL Absolute Neuts (auto) 5.5 (2.0-8.3) x10*3/uL Absolute Nucleated RBC 0.000 (0.0-0.012) X10*3/uL Nucleated RBC % (auto) 0.0 (0.0-0.2) /100WBC ESR (0-15) MM/HR PT 11.8 (9.9-13.0) SEC INR 1.0 (0.9-1.1) Sodium 140 (135-145) mmol/L Potassium 4.1 (3.3-5.1) mmol/L Chloride 102 (96-108) mmol/L Carbon Dioxide 31 H (22-29) mmol/L Anion Gap 11 L (12-20) BUN 14 (9-16) mg/dL Creatinine 0.87 (0.5-1.4) mg/dL Estim Creat Clear Calc 113.4 Estimated GFR > 60 Random Glucose 114 (60-115) mg/dL Calcium 9.1 (8.4-10.2) mg/dL Total Bilirubin 0.4 (0.0-1.0) mg/dL AST 30 (5-37) U/L ALT 34 (0-40) U/L Alkaline Phosphatase 57 (39-117) U/L C-Reactive Protein 0.52 H (< or = 0.50) mg/dL Total Protein 7.1 (6.5-8.0) g/dL Albumin 4.2 (3.5-5.0) g/dL 06/02/21 Range/Units 23:01 WBC (4.8-10.8) X10*3/uL RBC (4.60-5.80) X10*6/uL Hgb (14.0-18.0) g/dl Hct (42.0-52.0) % MCV (80.0-98.0) fL MCH (27.0-33.0) pg MCHC (31.0-36.0) g/dl RDW (11.0-16.0) % Plt Count (160-400) X10*3/uL MPV (9.4-12.4) fL Immature Gran % (Auto) (0.0-0.4) % Neut % (Auto) (45-73) % Lymph % (Auto) (20-40) % [place] % (Auto) (2-11) % Eos % (Auto) (0-4) % Baso % (Auto) (0-2) % Lymph # (Auto) (1.2-4.9) X10*3/uL [place] # (Auto) (0.1-1.2) X10*3/uL Eos # (Auto) (0.0-0.4) X10*3/uL Baso # (Auto) (0.0-0.2) X10*3/uL Abs Immat Gran (auto) (0.00-0.03) X10*3/uL Absolute Neuts (auto) (2.0-8.3) x10*3/uL Absolute Nucleated RBC (0.0-0.012) X10*3/uL Nucleated RBC % (auto) (0.0-0.2) /100WBC ESR 16 H (0-15) MM/HR PT (9.9-13.0) SEC INR (0.9-1.1) Sodium (135-145) mmol/L Potassium (3.3-5.1) mmol/L Chloride (96-108) mmol/L Carbon Dioxide (22-29) mmol/L Anion Gap (12-20) BUN (9-16) mg/dL Creatinine (0.5-1.4) mg/dL Estim Creat Clear Calc Estimated GFR Random Glucose (60-115) mg/dL Calcium (8.4-10.2) mg/dL Total Bilirubin (0.0-1.0) mg/dL AST (5-37) U/L ALT (0-40) U/L Alkaline Phosphatase (39-117) U/L C-Reactive Protein (< or = 0.50) mg/dL Total Protein (6.5-8.0) g/dL Albumin (3.5-5.0) g/dL Discharge Plan Discharge Clinical Impression: Headache, Blurred vision Patient Disposition: Home, Self-Care Instructions: Tension Headache (ED), Muscle Spasm (ED) Additional Instructions: 1. Tylenol 1000 mg, orally, every 6 hours a needed for pain control. Do not exceed 4000 mg within 24 hours. Lidocaine patch, this is available [id number], apply to area of maximal tenderness as directed on the outside packaging. 2. Ibuprofen 400 mg, orally with milk or food, every 6 hours as needed for pain control. You may take this medication with the Tylenol for increased symptom relief. 3. Please follow-up with ophthalmology/optometry for evaluation of your corrective lenses prescription. 4. Call your physician in the morning and set up an appointment for re- evaluation and further outpatient management. Return to the ER for acute worsening of symptoms. Prescriptions: No Action triamcinolone acetonide 0.5 % cream 1 appl topical BID RF: 0 aspirin 81 mg Tablet,Delayed Release (Dr/Ec) 81 mg PO DAILY RF: 0 metoprolol tartrate 25 mg Tablet 25 mg PO BID RF: 0 lisinopril 30 mg tablet 30 mg PO DAILY Qty: 14 RF: 0 Referrals: Nilsa Sexton MD [Primary Care Provider] - 2 days (Re-evaluation for suspected tension headache as well as visual changes, but workup to include CT scans were otherwise negative for acute findings.)
[2021-06-02 23:09] LABS: MANUAL DIFF FLAG NO
[2021-06-02 23:10] LABS: Basophils Percent Auto 0.2 % (0-2); Eosinophils Absolute Auto 0.1 X10*3/uL (0.0-0.4); Eosinophils Percent Auto 0.9 % (0-4); Hemoglobin 15.1 g/dl (14.0-18.0); Imm Gran Abs Auto 0.02 X10*3/uL (0.00-0.03); Imm Gran Pct Auto 0.2 % (0.0-0.4); Lymphocytes Absolute Auto 2.1 X10*3/uL (1.2-4.9); Lymphocytes Percent Auto 24.7 % (20-40); Mean Corpuscular HGB Conc 34.3 g/dl (31.0-36.0); Mean Corpuscular Hemoglobin 29.4 pg (27.0-33.0); Mean Corpuscular Volume 85.8 fL (80.0-98.0); Mean Platelet Volume 9.2 fL (9.4-12.4); Monocytes Absolute Auto 0.9 X10*3/uL (0.1-1.2); Monocytes Percent Auto 10.5 % (2-11); Neutrophils Absolute Auto 5.5 x10*3/uL (2.0-8.3); Neutrophils Percent Auto 63.5 % (45-73); Platelet Count 187 X10*3/uL (160-400); Red Blood Count 5.13 X10*6/uL (4.60-5.80); Red Cell Distribution Width 13.3 % (11.0-16.0); White Blood Count 8.6 X10*3/uL (4.8-10.8)
[2021-06-02 23:16] LABS: Prothrombin Time 11.8 SEC (9.9-13.0)
[2021-06-02 23:28] LABS: Alanine Aminotransferase 34 U/L (0-40); Albumin Level 4.2 g/dL (3.5-5.0); Alkaline Phosphatase 57 U/L (39-117); Anion Gap 11 (12-20); Aspartate Amino Transferase 30 U/L (5-37); Bilirubin Total 0.4 mg/dL (0.0-1.0); Blood Urea Nitrogen 14 mg/dL (9-16); C Reactive Protein 0.52 mg/dL (< or = 0.50); Calcium 9.1 mg/dL (8.4-10.2); Carbon Dioxide 31 mmol/L (22-29); Chloride 102 mmol/L (96-108); Creatinine Clr Calc Pharmacy 113.4; Estimated Glomerular Filt Rate > 60; Glucose Random 114 mg/dL (60-115); Potassium 4.1 mmol/L (3.3-5.1); Sodium 140 mmol/L (135-145); Total Protein 7.1 g/dL (6.5-8.0)
[2021-06-03 00:07] LABS: Erythrocyte Sedimentation Rate 16 MM/HR (0-15)
[2021-06-03] MEDS: iohexoL 350 MG/ML 100 ML INFUS..BTL 70 ML IV (00:18)
[2021-06-03] MEDS: Acetaminophen 325 MG TABLET 975 MG PO (00:22)
[2021-06-03] MEDS: Ketorolac Tromethamine 15 MG/ML VIAL IM (00:24)
[2021-06-03] MEDS: Lidocaine 4 % Patch ADH..PATCH 1 PATCH TRANSDERMA (00:26)
[2021-06-03 01:32] VITALS: BP 151/86; PULSE 52; RESP 18; TEMP 36.8; O2SAT 96
== END 2021-06-03 01:37 | disposition home or self-care (01) ==
PROVIDERS: Emergency Provider Student in an Organized Health Care Education/Training Program; PCP Internal Medicine
DX: R51.9 Headache, unspecified (principal); H53.8 Other visual disturbances; I10 Essential (primary) hypertension; Z86.73 Personal history of transient ischemic attack (TIA), and cerebral infarction without residual deficits; Z79.899 Other long term (current) drug therapy
CPT/HCPCS: 36415; 70496; 70498; 80053; 85025; 85610; 85652; 86140; 96372; 99283; 99284; J1885; Q9967

== ENCOUNTER → 2021-06-09 12:41 | Outpatient (BNVA) | payer OTHER, SELFPAY | PROVIDERS: PCP Internal Medicine; Referring Provider Internal Medicine; Visit Provider Internal Medicine Gastroenterology | DX: K51.90 Ulcerative colitis, unspecified, without complications (principal) | CPT/HCPCS: 99212 ==

== ENCOUNTER 2021-08-27 15:58 | Outpatient (REF) | payer OTHER, SELFPAY ==
[2021-08-27 17:30] LABS: Blood Urea Nitrogen 24 mg/dL (9-16); Estimated Glomerular Filt Rate > 60
== END 2021-08-27 15:59 | disposition home or self-care (01) ==
LOC: HO.LAB 15:58
PROVIDERS: PCP Internal Medicine; Visit Provider Internal Medicine Gastroenterology
DX: K51.90 Ulcerative colitis, unspecified, without complications (principal); K21.9 Gastro-esophageal reflux disease without esophagitis
CPT/HCPCS: 36415; 82565; 84520

== ENCOUNTER 2021-09-01 06:18 | Outpatient (REF) | payer OTHER, SELFPAY ==
--- NOTE | ~2021-09-01 | CT_ITS ---
EXAMINATION: CT ENTEROGRAPHY ABDOMEN AND PELVIS WITH CONTRAST CLINICAL INFORMATION: Periumbilical pain COMPARISON: Previous CT of the abdomen and pelvis December 2020 TECHNIQUE: Study performed with oral VoLumen (1350 mL) and 480 mL of water to distend the abdomen. The patient was injected with 85 mL Omnipaque 350 intravenous contrast which was administered without adverse effect. Coronal and sagittal reformatted images were obtained at the technologist's workstation. This CT examination was performed using dose optimization techniques as appropriate, variously including the following: *Automated exposure control *Adjustment of mA and/or kV according to patient size (this includes techniques or standardized protocols for targeted exams where dose is matched to indication/reason for exam; i.e. extremities or head) *Use of iterative reconstruction technique DLP: 745 mGy-cm FINDINGS: GASTROINTESTINAL FINDINGS: Stomach: Well-distended and normal in appearance. Small intestine: Satisfactorily distended and normal in appearance. Large intestine: Well-distended and normal in appearance. No perirectal changes demonstrated. The appendix is normal. Additional findings: No abnormal enhancement of the vasa recta or significant mesenteric or retroperitoneal lymphadenopathy is seen. No abdominal abscess or fistulous tract demonstrated. ABDOMINAL AND PELVIC CT FINDINGS: Liver, gallbladder, biliary tract: Normal Pancreas: Normal Spleen: Normal Adrenal glands and kidneys: Normal Ureters and bladder: Normal Lymphovascular structures: Normal Bones: There are degenerative changes of the spine. Lung bases: There is question of a 5 mm peripheral or subpleural right lower lobe nodule adjacent to the major fissure axial image 30 series 8 versus incompletely visualized pulmonary vessel. This is similar to June 2020 exam for example axial image 1 series 4. The lung bases are otherwise clear. CT/CT enterography IMPRESSION: Unremarkable examination.
[2021-09-01] MEDS: Sorbitol/Mannit/Xanth Imaging 500 ML LIQUID 1500 ML PO (09:02)
[2021-09-01] MEDS: iohexoL 350 MG/ML 100 ML INFUS..BTL IV (09:03)
== END 2021-09-01 06:19 | disposition home or self-care (01) ==
LOC: HO.CT 06:18
PROVIDERS: Visit Provider Internal Medicine Gastroenterology
DX: R10.33 Periumbilical pain (principal)
CPT/HCPCS: 74177; Q9967

== ENCOUNTER 2021-09-26 15:07 | Outpatient (REF) | payer OTHER, SELFPAY ==
--- NOTE | ~2021-09-26 | US_ITS ---
EXAMINATION: US EXTRACRANIAL CAROTID DUPLEX, BILATERAL CLINICAL INFORMATION: Central retinal vein occlusion COMPARISON: Carotid duplex on 07/16/2020 TECHNIQUE: Real-time ultrasound and Doppler techniques (integrating B-mode 2-D vascular images, Doppler spectral analysis and color-flow Doppler imaging) were utilized to interrogate the extracranial carotid arteries, the vertebral arteries and proximal subclavian arteries bilaterally. The degree of stenosis is determined by criteria similar to NASCET. FINDINGS: Right Side: 1. There is no significant atherosclerotic plaque seen in the bifurcation/proximal ICA region. 2. The common carotid artery PSV proximally is 122 cm/s and distally 103 cm/s. 3. The proximal internal carotid artery velocities are 104 cm/s systolic and 31 cm/s diastolic. 4. The proximal external carotid artery PSV is 111 cm/s. 5. The vertebral artery shows antegrade flow. 6. The subclavian artery waveforms are normal. Left Side: 1. There is no significant atherosclerotic plaque seen in the bifurcation/proximal ICA region. 2. The common carotid artery PSV proximally is 146 cm/s and distally 132 cm/s. 3. The proximal internal carotid artery velocities are 122 cm/s systolic and 40 cm/s diastolic. 4. The proximal external carotid artery PSV is 127 cm/s. 5. The vertebral artery shows antegrade flow. 6. The subclavian artery waveforms are normal. US/US carotid duplex BI IMPRESSION: 1. RIGHT: Normal right internal carotid artery without atherosclerotic plaque or hemodynamically significant stenosis. 2. LEFT: Normal left internal carotid artery without atherosclerotic plaque or hemodynamically significant stenosis. 3. There is no change in the category severity of disease when compared to the previous study dated 07/16/2020.
== END 2021-09-26 15:08 | disposition home or self-care (01) ==
LOC: HO.US 15:07
PROVIDERS: Visit Provider Internal Medicine
DX: H34.8192 Central retinal vein occlusion, unspecified eye, stable (principal); I73.9 Peripheral vascular disease, unspecified
CPT/HCPCS: 93880

== ENCOUNTER 2021-10-10 06:49 | Emergency (ER) | payer OTHER, SELFPAY ==
[2021-10-10 06:59] VITALS: BP 140/87; PULSE 103; RESP 18; TEMP 36.9; O2SAT 98; BMI 36.3
--- NOTE | 2021-10-10 07:03 | ECG_ITS ---
Test Reason : sob Blood Pressure : / mmHG Vent. Rate : 100 BPM Atrial Rate : 100 BPM P-R Int : 162 ms QRS Dur : 092 ms QT Int : 344 ms P-R-T Axes : 039 013 020 degrees QTc Int : 443 ms Normal sinus rhythm Incomplete right bundle branch block Minimal voltage criteria for LVH, may be normal variant ( R in aVL ) Borderline ECG When compared with ECG of 06-MAY-2021 13:13, Vent. rate has increased BY 43 BPM Referred By: Kaylee Galvin Electronically Signed By:DANIEL EID MD
--- NOTE | 2021-10-10 07:09 | ED.NAVMDI ---
HPI - Nausea/Vomiting/Diarrhea General Chief complaint: Nausea/Vomiting/Diarrhea Stated complaint: High Blood Pressure/Vomiting Time Seen by Provider: 10/10/21 07:02 Source: patient Mode of arrival: ambulatory Limitations: no limitations History of Present Illness HPI Narrative: vomited up his BP medications this AM MD elicited complaint: nausea, vomiting and diarrhea Pertinent past history: other Onset (ago): hour(s) (few) Description of vomiting: food contents and watery Associated nausea: Yes Associated abdominal pain: No Location of pain: none Radiation: diffuse Pain consistency: intermittent Severity: mild Quality: cramping Exacerbating factors: eating Relieving factors: none Context: possible food poisoning (started after eating malian food) Associated symptoms: loss of appetite, malaise and nausea/vomiting Related Data Home Medications Medication Instructions Recorded Confirmed aspirin 81 mg tablet,delayed 81 mg PO DAILY 12/20/20 05/14/21 release metoprolol tartrate 25 mg tablet 25 mg PO BID 12/20/20 05/14/21 triamcinolone acetonide 0.5 % 1 appl TOPICAL BID 12/20/20 05/14/21 topical cream gabapentin 100 mg capsule 100 mg PO BID 05/22/21 pantoprazole 40 mg tablet,delayed 40 mg PO DAILY 05/22/21 release Previous Rx's Medication Instructions Recorded lisinopril 30 mg tablet 30 mg PO DAILY #14 tab 05/06/21 ondansetron 4 mg disintegrating 4 mg PO Q8H PRN #20 tab 10/10/21 tablet Allergies Allergy/AdvReac Type Severity Reaction Status Date / Time No Known Allergies Allergy Verified 06/09/21 12:52 [No Known Allergies*] Review of Systems Review of Systems: Constitutional : No Weight loss, No Fever, No Chills ENT/Mouth : No sore throat, No Rhinorrhea Eyes: No Swelling, No Redness Cardiovascular : No Chest Pain, No SOB, NoEdema Respiratory : No Cough, No Sputum, No Wheezing Gastrointestinal : Positive Nausea, Positive Vomiting, positive Diarrhea, positive abdominal Pain, No Hematochezia, No Melena Genitourinary : No Dysuria, No Urinary Frequency, No Hematuria, No Urgency Musculoskeletal : No joint pain, No Myalgias, No Joint Swelling Skin : No Skin Lesions, No rash Neuro : No Weakness, No Numbness, No Dizziness, No Headache Psych : No Anxiety/Panic, No Depression Heme/Lymph: No Bruising, No Lymphadenopathy Endocrine : No Polyuria, No Polydipsia All other systems reviewed and are negative. Gastrointestinal: Gastrointestinal: Reports nausea PMFSH Past Medical History Attestation statement: The following information was validated with the patient. Medical History Back pain COVID-19 GERD (gastroesophageal reflux disease) Hypertension Lacunar stroke Migraines Obesity On beta philip at home Psoriasis Sleep apnea with use of continuous positive airway pressure (CPAP) Ulcerative colitis Surgical History History of esophagogastroduodenoscopy (EGD) Hx of colonoscopy No pertinent past surgical history Family History Family History Father No problems noted. Mother No problems noted. Sister No problems noted. Sister No problems noted. Sister Kidney replaced by transplant Brother No problems noted. Brother No problems noted. Brother No problems noted. Brother Diabetes Son No problems noted. Daughter No problems noted. Social History Social History Household Members: None Housing: Apartment Are you a primary director of managed care to a significant other at home: No Do you presently have visiting nurse or other home services: No Alcohol intake: former Patient Tobacco Use Status: Never used Tobacco Use of substances other than those prescribed or required for medical reasons: No Advance Directives: No service: No Current occupational status: employed Current occupation: [employer] Physical Exam Vital Signs: Vital Signs: Last Vital Signs Temp 98.5 F 10/10/21 06:59 Pulse 103 H 10/10/21 06:59 Resp 18 10/10/21 06:59 BP 140/87 H 10/10/21 06:59 Pulse Ox 98 10/10/21 06:59 BMI result Body Mass Index 36.3 Appearance: Alert. Oriented X3. No acute distress. Eyes: Pupils equal, round and reactive to light. ENT: Pharynx normal. Neck: Normal inspection. Neck supple. CVS: Normal heart rate and rhythm. Pulses normal. Respiratory: No respiratory distress. Breath sounds normal. Abdomen: Soft and non-tender. Skin: Skin warm and dry. Normal skin color. Normal skin turgor. Extremities: No lower extremity edema. No calf ttp Neuro: Oriented X 3. No motor deficit. No sensory deficit. Course Course Course Narrative: able to tolerate PO feels better stable for DC MDM - Nausea/Vomiting/Diarrhea MDM Narrative Medical decision making narrative: 56 yo male with hx of HTN, PAD, GERD, CVA comes in with n/v/d some very mild abdominal cramps but no ttp on my exam after eating malian food - at this time will need labs, IVF, anti emetics. Dispo per ability to tolerate PO. He will need his AM BP medications once he can tolerate PO. Lab Data Result diagrams: 10/10/21 07:44 10/10/21 07:43 Labs: Lab Results 10/10/21 10/10/21 Range/Units 07:43 07:44 WBC 6.9 (4.8-10.8) X10*3/uL RBC 5.42 (4.60-5.80) X10*6/uL Hgb 15.9 (14.0-18.0) g/dl Hct 47.7 (42.0-52.0) % MCV 88.0 (80.0-98.0) fL MCH 29.3 (27.0-33.0) pg MCHC 33.3 (31.0-36.0) g/dl RDW 13.4 (11.0-16.0) % Plt Count 195 (160-400) X10*3/uL MPV 10.0 (9.4-12.4) fL Immature Gran % (Auto) 0.3 (0.0-0.4) % Neut % (Auto) 84.6 H (45-73) % Lymph % (Auto) 7.4 L (20-40) % Reynolds % (Auto) 7.5 (2-11) % Eos % (Auto) 0.1 (0-4) % Baso % (Auto) 0.1 (0-2) % Lymph # (Auto) 0.5 L (1.2-4.9) X10*3/uL Reynolds # (Auto) 0.5 (0.1-1.2) X10*3/uL Eos # (Auto) 0.0 (0.0-0.4) X10*3/uL Baso # (Auto) 0.0 (0.0-0.2) X10*3/uL Abs Immat Gran (auto) 0.02 (0.00-0.03) X10*3/uL Absolute Neuts (auto) 5.9 (2.0-8.3) x10*3/uL Absolute Nucleated RBC 0.000 (0.0-0.012) X10*3/uL Nucleated RBC % (auto) 0.0 (0.0-0.2) /100WBC Sodium 139 (135-145) mmol/L Potassium 4.1 (3.3-5.1) mmol/L Chloride 100 (96-108) mmol/L Carbon Dioxide 31 H (22-29) mmol/L Anion Gap 12 (12-20) BUN 23 H (9-16) mg/dL Creatinine 0.87 (0.5-1.4) mg/dL Estim Creat Clear Calc 113.1 Estimated GFR > 60 Random Glucose 132 H (60-115) mg/dL Calcium 9.1 (8.4-10.2) mg/dL Magnesium 2.0 (1.6-2.6) mg/dL Total Bilirubin 1.0 (0.0-1.0) mg/dL Direct Bilirubin 0.4 (0.0-0.5) mg/dL AST 33 (5-37) U/L ALT 45 H (0-40) U/L Alkaline Phosphatase 70 D (39-117) U/L Total Protein 7.1 (6.5-8.0) g/dL Albumin 4.3 (3.5-5.0) g/dL Lipase 32 (8-78) U/L ECG Data Attestation: I personally reviewed and interpreted this ECG as follows: ECG interpretation date: 10/10/21 ECG interpretation time: 07:34 Interpretation: Rate: 100 Rhythm: NSR [place]: normal , LVH Normal P waves. Normal WILIAN. incomplete RBBB ST T wave : normal no MIGUEL qTC: normal prior studies: no acute ischemia The study has been interpreted contemporaneously by me. . Discharge Plan Discharge Clinical Impression: Food poisoning, Vomiting and diarrhea Patient Disposition: Home, Self-Care Instructions: Acute Nausea and Vomiting (ED), Acute Diarrhea (ED), Food Poisoning (ED) Additional Instructions: return to ED for any worsening symptoms or concerns avoid dairy for 3 days you were given your blood pressure medications this morning in the ED Prescriptions: New ondansetron 4 mg tablet,disintegrating 4 mg PO Q8H PRN (Reason: nausea and vomiting) Qty: 20 0RF No Action triamcinolone acetonide 0.5 % cream 1 appl topical BID 0RF aspirin 81 mg Tablet,Delayed Release (Dr/Ec) 81 mg PO DAILY 0RF metoprolol tartrate 25 mg Tablet 25 mg PO BID 0RF lisinopril 30 mg tablet 30 mg PO DAILY Qty: 14 0RF gabapentin 100 mg capsule 100 mg PO BID 0RF pantoprazole 40 mg tablet,delayed release (DR/EC) 40 mg PO DAILY 0RF Stand Alone Forms: Work/School Release
[2021-10-10 07:47] LABS: MANUAL DIFF FLAG NO
[2021-10-10 07:50] LABS: Basophils Percent Auto 0.1 % (0-2); Eosinophils Percent Auto 0.1 % (0-4); Hematocrit 47.7 % (42.0-52.0); Hemoglobin 15.9 g/dl (14.0-18.0); Imm Gran Abs Auto 0.02 X10*3/uL (0.00-0.03); Imm Gran Pct Auto 0.3 % (0.0-0.4); Lymphocytes Absolute Auto 0.5 X10*3/uL (1.2-4.9); Lymphocytes Percent Auto 7.4 % (20-40); Mean Corpuscular HGB Conc 33.3 g/dl (31.0-36.0); Mean Corpuscular Hemoglobin 29.3 pg (27.0-33.0); Monocytes Absolute Auto 0.5 X10*3/uL (0.1-1.2); Monocytes Percent Auto 7.5 % (2-11); Neutrophils Absolute Auto 5.9 x10*3/uL (2.0-8.3); Neutrophils Percent Auto 84.6 % (45-73); Platelet Count 195 X10*3/uL (160-400); Red Blood Count 5.42 X10*6/uL (4.60-5.80); Red Cell Distribution Width 13.4 % (11.0-16.0); White Blood Count 6.9 X10*3/uL (4.8-10.8)
[2021-10-10] MEDS: Metoclopramide HCl 10 MG/2 ML VIAL IVPUSH (07:50)
[2021-10-10] MEDS: diphenhydrAMINE HCL 50 MG/ML VIAL 25 MG IVPUSH (07:50)
[2021-10-10] MEDS: 0.9 % Sodium Chloride 1,000 ML 999 ML IVCONT (07:56)
[2021-10-10] MEDS: Famotidine/PF 20 MG/2 ML VIAL IVPUSH (07:58)
[2021-10-10 08:21] LABS: Alanine Aminotransferase 45 U/L (0-40); Albumin Level 4.3 g/dL (3.5-5.0); Alkaline Phosphatase 70 U/L (39-117); Anion Gap 12 (12-20); Aspartate Amino Transferase 33 U/L (5-37); Bilirubin Direct 0.4 mg/dL (0.0-0.5); Blood Urea Nitrogen 23 mg/dL (9-16); Calcium 9.1 mg/dL (8.4-10.2); Carbon Dioxide 31 mmol/L (22-29); Chloride 100 mmol/L (96-108); Creatinine Clr Calc Pharmacy 113.1; Estimated Glomerular Filt Rate > 60; Glucose Random 132 mg/dL (60-115); Lipase 32 U/L (8-78); Potassium 4.1 mmol/L (3.3-5.1); Sodium 139 mmol/L (135-145); Total Protein 7.1 g/dL (6.5-8.0)
== END 2021-10-10 09:11 | disposition home or self-care (01) ==
PROVIDERS: Emergency Provider Emergency Medicine; PCP Internal Medicine
DX: A05.9 Bacterial foodborne intoxication, unspecified (principal); R10.9 Unspecified abdominal pain; R11.2 Nausea with vomiting, unspecified; I10 Essential (primary) hypertension
CPT/HCPCS: 36415; 80048; 80076; 83690; 83735; 85025; 93005; 96361; 96374; 96375; 99284; J1200; J2765

== ENCOUNTER → 2021-11-10 13:59 | Outpatient (BNVA) | payer OTHER, SELFPAY | PROVIDERS: PCP Internal Medicine; Referring Provider Internal Medicine; Visit Provider Internal Medicine Gastroenterology | DX: R13.10 Dysphagia, unspecified (principal); Z86.010 Personal history of colon polyps; Z87.19 Personal history of other diseases of the digestive system | CPT/HCPCS: 99212 ==

== ENCOUNTER 2021-11-20 20:46 | Emergency (ER) | payer OTHER, SELFPAY ==
--- NOTE | 2021-11-20 | ECG_ITS ---
Test Reason : CP Blood Pressure : / mmHG Vent. Rate : 052 BPM Atrial Rate : 052 BPM P-R Int : 152 ms QRS Dur : 102 ms QT Int : 420 ms P-R-T Axes : 015 -17 -07 degrees QTc Int : 390 ms Sinus bradycardia Incomplete right bundle branch block Moderate voltage criteria for LVH, may be normal variant ( R in aVL , Carlos product ) Inferior infarct , age undetermined Abnormal ECG When compared with ECG of 10-OCT-2021 07:26, Vent. rate has decreased BY 48 BPM Inferior infarct is now Present T wave inversion now evident in Inferior leads QT has shortened Referred By: Nilsa Pruitt Electronically Signed By:DANIEL EID MD
[2021-11-20 20:51] VITALS: BP 146/78; PULSE 55; RESP 14; TEMP 36.6; O2SAT 98; BMI 33.6
[2021-11-20 21:13] LABS: MANUAL DIFF FLAG NO
[2021-11-20 21:14] LABS: Basophils Percent Auto 0.4 % (0-2); Eosinophils Absolute Auto 0.1 X10*3/uL (0.0-0.4); Hemoglobin 14.6 g/dl (14.0-18.0); Imm Gran Abs Auto 0.01 X10*3/uL (0.00-0.03); Imm Gran Pct Auto 0.1 % (0.0-0.4); Lymphocytes Absolute Auto 2.2 X10*3/uL (1.2-4.9); Mean Corpuscular HGB Conc 33.2 g/dl (31.0-36.0); Mean Corpuscular Volume 87.3 fL (80.0-98.0); Mean Platelet Volume 9.3 fL (9.4-12.4); Monocytes Absolute Auto 0.9 X10*3/uL (0.1-1.2); Monocytes Percent Auto 10.9 % (2-11); Neutrophils Absolute Auto 4.9 x10*3/uL (2.0-8.3); Neutrophils Percent Auto 60.6 % (45-73); Platelet Count 194 X10*3/uL (160-400); Red Blood Count 5.04 X10*6/uL (4.60-5.80); Red Cell Distribution Width 13.3 % (11.0-16.0)
--- NOTE | 2021-11-20 21:34 | ED.CHESTPAIN ---
HPI - Chest Pain General Chief Complaint: Chest Pain Stated Complaint: upper back pain - palpitation yesterday Time Seen by Provider: 11/20/21 21:34 Source: patient Mode of arrival: ambulatory Limitations: no limitations History of Present Illness HPI narrative: Patient with hx of hypertension peripheral arterial disease obesity sleep apnea with history of episodes of palpitation off and on for years has been evaluated in the past including the Holter test and never diagnosed yesterday in the p.m. patient noticed similar episode also had pain in the left shoulder left upper back which is also going on for long time no left chest pain no syncope felt little short of breath when palpitation happened lasted less than a minute patient slept well last night today patient asymptomatic patient getting intra-ocular injections some inflammation worried about it with the side effect of the medication but patient does have history of palpitation in the past Related Data Home Medications Medication Instructions Recorded Confirmed aspirin 81 mg tablet,delayed 81 mg PO DAILY 12/20/20 05/14/21 release metoprolol tartrate 25 mg tablet 25 mg PO BID 12/20/20 05/14/21 triamcinolone acetonide 0.5 % 1 appl TOPICAL BID 12/20/20 05/14/21 topical cream gabapentin 100 mg capsule 100 mg PO BID 05/22/21 pantoprazole 40 mg tablet,delayed 40 mg PO DAILY 05/22/21 release Previous Rx's Medication Instructions Recorded lisinopril 30 mg tablet 30 mg PO DAILY #14 tab 05/06/21 ondansetron 4 mg disintegrating 4 mg PO Q8H PRN #20 tab 10/10/21 tablet nortriptyline 10 mg capsule 10 mg PO BEDTIME #90 cap 11/10/21 Allergies Allergy/AdvReac Type Severity Reaction Status Date / Time No Known Allergies Allergy Verified 06/09/21 12:52 [No Known Allergies*] Review of Systems Review of Systems: Yes all other systems are reviewed and are negative PMFSH Past Medical History Medical History Back pain COVID-19 GERD (gastroesophageal reflux disease) Hypertension Lacunar stroke Migraines Obesity On beta philip at home Psoriasis Sleep apnea with use of continuous positive airway pressure (CPAP) Ulcerative colitis Surgical History History of esophagogastroduodenoscopy (EGD) Hx of colonoscopy No pertinent past surgical history Family History Family History Father No problems noted. Mother No problems noted. Sister No problems noted. Sister No problems noted. Sister Kidney replaced by transplant Brother No problems noted. Brother No problems noted. Brother No problems noted. Brother Diabetes Son No problems noted. Daughter No problems noted. Social History Social History Household Members: None Housing: Apartment Are you a primary account executive healthcare to a significant other at home: No Do you presently have visiting nurse or other home services: No Alcohol intake: former Patient Tobacco Use Status: Never used Tobacco Advance Directives: No service: No Current occupational status: employed Current occupation: [employer] Physical Exam Vital Signs: Vital Signs: Last Vital Signs Temp 98.2 F 11/20/21 22:01 Pulse 48 L 11/20/21 22:01 Resp 17 11/20/21 22:01 BP 130/77 11/20/21 22:01 Pulse Ox 98 11/20/21 22:01 BMI result Body Mass Index 33.6 Appearance: Alert. Oriented X3. No acute distress. Eyes: No pallor or icterus ENT: Pharynx normal. Oral Mucosa moist Neck: Normal inspection. Neck supple. CVS: Normal heart rate and rhythm. Pulses normal. Respiratory: No respiratory distress. Equal air entry bilateral, no wheezing/rales/rhonchi Abdomen: Soft and nontender. Bowel sounds are present Skin: Skin warm and dry. Normal skin color. Normal skin turgor. Extremities: No lower extremity edema. No calf tenderness Neuro: Oriented X 3. MDM - Chest Pain MDM Narrative Medical decision making narrative: Patient with a history of palpitation came with similar episode of palpitation during stay in the ER no arrhythmias noticed patient advised to follow-up with assistant professor of archaeology for event monitor or report to the ER has syncope or palpitation last for long. Patient labs were stable high sensitive troponin negative and patient denies any chest pain Lab Data Attestation: I reviewed the patient's lab results. Result diagrams: 11/20/21 21:07 11/20/21 21:07 Labs: Lab Results 11/20/21 11/20/2122 Range/Units 21:07 21:07 21:07 WBC 8.0 (4.8-10.8) X10*3/uL RBC 5.04 (4.60-5.80) X10*6/uL Hgb 14.6 (14.0-18.0) g/dl Hct 44.0 (42.0-52.0) % MCV 87.3 (80.0-98.0) fL MCH 29.0 (27.0-33.0) pg MCHC 33.2 (31.0-36.0) g/dl RDW 13.3 (11.0-16.0) % Plt Count 194 (160-400) X10*3/uL MPV 9.3 L (9.4-12.4) fL Immature Gran % (Auto) 0.1 (0.0-0.4) % Neut % (Auto) 60.6 (45-73) % Lymph % (Auto) 27.0 (20-40) % [place] % (Auto) 10.9 (2-11) % Eos % (Auto) 1.0 (0-4) % Baso % (Auto) 0.4 (0-2) % Lymph # (Auto) 2.2 (1.2-4.9) X10*3/uL [place] # (Auto) 0.9 (0.1-1.2) X10*3/uL Eos # (Auto) 0.1 (0.0-0.4) X10*3/uL Baso # (Auto) 0.0 (0.0-0.2) X10*3/uL Abs Immat Gran (auto) 0.01 (0.00-0.03) X10*3/uL Absolute Neuts (auto) 4.9 (2.0-8.3) x10*3/uL Absolute Nucleated RBC 0.000 (0.0-0.012) X10*3/uL Nucleated RBC % (auto) 0.0 (0.0-0.2) /100WBC Sodium 141 (135-145) mmol/L Potassium 3.9 (3.3-5.1) mmol/L Chloride 105 (96-108) mmol/L Carbon Dioxide 29 (22-29) mmol/L Anion Gap 11 L (12-20) BUN 22 H (9-16) mg/dL Creatinine 0.86 (0.5-1.4) mg/dL Estim Creat Clear Calc 113.6 Estimated GFR > 60 Random Glucose 104 (60-115) mg/dL Calcium 9.4 (8.4-10.2) mg/dL Total Bilirubin 0.4 (0.0-1.0) mg/dL AST 27 (5-37) U/L ALT 38 (0-40) U/L Alkaline Phosphatase 59 (39-117) U/L Troponin I High Sens < 3.5 (<3.5-35.0) ng/L Total Protein 6.9 (6.5-8.0) g/dL Albumin 4.0 (3.5-5.0) g/dL ECG Data ECG #1: Attestation: I personally reviewed and interpreted this ECG as follows: Interpretation: Senna bradycardia heart rate 52 beats per minute incomplete RBBB , LVH no acute ischemic changes Discharge Plan Discharge Clinical Impression: Heart palpitations Patient Disposition: Home, Self-Care Instructions: Heart Palpitations (ED) Additional Instructions: Continue medications and follow with assistant professor of archaeology for further evaluation Report to the ER if recurrence of long episodes of palpitations associated with dizziness or syncope Prescriptions: No Action triamcinolone acetonide 0.5 % cream 1 appl topical BID 0RF aspirin 81 mg Tablet,Delayed Release (Dr/Ec) 81 mg PO DAILY 0RF metoprolol tartrate 25 mg Tablet 25 mg PO BID 0RF ondansetron 4 mg tablet,disintegrating 4 mg PO Q8H PRN (Reason: nausea and vomiting) Qty: 20 0RF lisinopril 30 mg tablet 30 mg PO DAILY Qty: 14 0RF gabapentin 100 mg capsule 100 mg PO BID 0RF pantoprazole 40 mg tablet,delayed release (DR/EC) 40 mg PO DAILY 0RF nortriptyline 10 mg capsule 10 mg PO BEDTIME Qty: 90 1RF Referrals: Shaun Back MD [Physician] - 1 week Stand Alone Forms: Work/School Release Interventions: ED Discharge Assessment Last Done: 11/20/21 22:27 Discharge Date/Time: 11/20/21 22:29
[2021-11-20 21:41] LABS: Troponin-I High Sensitivity < 3.5 ng/L (<3.5-35.0)
[2021-11-20 21:46] LABS: Alanine Aminotransferase 38 U/L (0-40); Alkaline Phosphatase 59 U/L (39-117); Anion Gap 11 (12-20); Aspartate Amino Transferase 27 U/L (5-37); Bilirubin Total 0.4 mg/dL (0.0-1.0); Blood Urea Nitrogen 22 mg/dL (9-16); Calcium 9.4 mg/dL (8.4-10.2); Carbon Dioxide 29 mmol/L (22-29); Chloride 105 mmol/L (96-108); Creatinine Clr Calc Pharmacy 113.6; Estimated Glomerular Filt Rate > 60; Glucose Random 104 mg/dL (60-115); Potassium 3.9 mmol/L (3.3-5.1); Sodium 141 mmol/L (135-145); Total Protein 6.9 g/dL (6.5-8.0)
--- NOTE | 2021-11-20 21:53 | PC.NURSE ---
Assumed care of pt Pt c/o LT shoulder blade pain radiating up and front to LT shoulder since yesterday. Per pt, worse with movement. Per pt, has had these pain on and off throughout the year. Normally receives relief with tylenol but no relief today. Denies any SOB Pt received shot on RT eye yesterday for inflammation Will continue to monitor
[2021-11-20 22:01] VITALS: BP 130/77; PULSE 48; RESP 17; TEMP 36.8; O2SAT 98
== END 2021-11-20 22:29 | disposition home or self-care (01) ==
PROVIDERS: Emergency Provider Internal Medicine; PCP Internal Medicine
DX: R07.89 Other chest pain (principal); R00.2 Palpitations; Z79.899 Other long term (current) drug therapy
CPT/HCPCS: 36415; 80053; 84484; 85025; 93005; 99283; 99284

== ENCOUNTER → 2021-12-24 09:43 | Outpatient (BNVA) | payer OTHER, SELFPAY | PROVIDERS: PCP Internal Medicine; Referring Provider Internal Medicine; Visit Provider Internal Medicine Cardiovascular Disease | DX: R00.2 Palpitations (principal); I10 Essential (primary) hypertension; Z79.899 Other long term (current) drug therapy | CPT/HCPCS: 99202; 99212 ==

== ENCOUNTER 2022-02-19 17:53 | Emergency (ER) | payer OTHER, SELFPAY ==
[2022-02-19 18:51] VITALS: BP 144/76; PULSE 59; RESP 18; TEMP 36.6; O2SAT 97; BMI 34.2
== END 2022-02-19 23:24 | disposition left against medical advice (07) ==
PROVIDERS: Emergency Provider Emergency Medicine; PCP Internal Medicine
DX: R51.9 Headache, unspecified (principal); I10 Essential (primary) hypertension
CPT/HCPCS: 99281

== ENCOUNTER 2022-02-24 05:34 | Emergency (ER) | payer OTHER, SELFPAY ==
[2022-02-24 05:51] VITALS: BP 137/70; PULSE 63; RESP 18; TEMP 36.2; O2SAT 98; BMI 34.2
[2022-02-24 05:54] VITALS: BP 161/78
[2022-02-24 06:08] VITALS: BP 141/79; PULSE 56; RESP 16; TEMP 37; O2SAT 98
--- NOTE | 2022-02-24 06:34 | ECG_ITS ---
Test Reason : HEADACHE Blood Pressure : / mmHG Vent. Rate : 054 BPM Atrial Rate : 054 BPM P-R Int : 152 ms QRS Dur : 104 ms QT Int : 430 ms P-R-T Axes : 029 012 035 degrees QTc Int : 407 ms Sinus bradycardia Incomplete right bundle branch block Borderline ECG When compared with ECG of 20-NOV-2021 20:57, No significant changes seen Referred By: Kimberly Belle Electronically Signed By:ADILENE MARTIN
[2022-02-24 06:52] LABS: Basophils Percent Auto 0.4 % (0-2); Eosinophils Absolute Auto 0.1 X10*3/uL (0.0-0.4); Eosinophils Percent Auto 1.4 % (0-4); Hematocrit 42.9 % (42.0-52.0); Hemoglobin 14.3 g/dl (14.0-18.0); Imm Gran Abs Auto 0.01 X10*3/uL (0.00-0.03); Imm Gran Pct Auto 0.2 % (0.0-0.4); Lymphocytes Absolute Auto 1.2 X10*3/uL (1.2-4.9); Lymphocytes Percent Auto 24.1 % (20-40); MANUAL DIFF FLAG NO; Mean Corpuscular HGB Conc 33.3 g/dl (31.0-36.0); Mean Corpuscular Hemoglobin 29.1 pg (27.0-33.0); Mean Corpuscular Volume 87.2 fL (80.0-98.0); Mean Platelet Volume 9.3 fL (9.4-12.4); Monocytes Absolute Auto 0.5 X10*3/uL (0.1-1.2); Monocytes Percent Auto 11.1 % (2-11); Neutrophils Absolute Auto 3.1 x10*3/uL (2.0-8.3); Neutrophils Percent Auto 62.8 % (45-73); Platelet Count 166 X10*3/uL (160-400); Red Blood Count 4.92 X10*6/uL (4.60-5.80); Red Cell Distribution Width 13.3 % (11.0-16.0); White Blood Count 4.9 X10*3/uL (4.8-10.8)
[2022-02-24 07:02] LABS: INTERNATIONAL NORM RATIO 1.1 (0.9-1.1); Prothrombin Time 12.7 SEC (10.0-13.1)
[2022-02-24 07:03] LABS: Appearance Urine CLEAR; Color Urine YELLOW; Glucose Urine UA NEG (NEG); Leukocyte Esterase Urine NEG (NEG); Nitrite Urine NEG (NEG); PH 6.5 (5.0-8.0); Specific Gravity - Urine <= 1.005 (1.005-1.025); Urine Blood NEG (NEG); Urine Ketones NEG (NEG); Urine Protein NEG (NEG-TRACE)
[2022-02-24 07:15] LABS: Alanine Aminotransferase 28 U/L (0-40); Albumin Level 3.9 g/dL (3.5-5.0); Alkaline Phosphatase 62 U/L (39-117); Anion Gap 11 (12-20); Aspartate Amino Transferase 22 U/L (5-37); Bilirubin Total 0.5 mg/dL (0.0-1.0); Blood Urea Nitrogen 12 mg/dL (9-16); Calcium 8.5 mg/dL (8.4-10.2); Carbon Dioxide 29 mmol/L (22-29); Chloride 103 mmol/L (96-108); Creatinine Clr Calc Pharmacy 122.5; Estimated Glomerular Filt Rate > 60; Glucose Random 148 mg/dL (60-115); Potassium 3.6 mmol/L (3.3-5.1); Sodium 139 mmol/L (135-145); Total Protein 6.3 g/dL (6.5-8.0)
[2022-02-24 07:18] LABS: Troponin-I High Sensitivity < 3.5 ng/L (<3.5-35.0)
--- NOTE | 2022-02-24 07:19 | ED.HA ---
HPI - Headache General Chief Complaint: Headache Stated Complaint: blood pressure high Time Seen by Provider: 02/24/22 06:27 Source: patient History of Present Illness HPI Narrative: 57-year-old male with history hypertension and ulcerative colitis presents this morning with complaints of headache and when he took his blood pressure noted that it was in the 170s over 80s. Patient states the took Tylenol as well as his blood pressure medication and no longer has a headache. Patient reports that the headache was not associated with any dizziness, visual changes, speech changes and he denies any difficulty with numbness/tingling/weakness in any of his extremities. Patient denies any associated chest pain, palpitations, shortness of breath. He is currently wearing a Holter monitor and has follow-up appointments on the night and of this month as well as appointments in March with Cardiology. Related Data Home Medications Medication Instructions Recorded Confirmed aspirin 81 mg tablet,delayed 81 mg PO DAILY 12/20/20 12/24/21 release metoprolol tartrate 25 mg tablet 25 mg PO BID 12/20/20 12/24/21 triamcinolone acetonide 0.5 % 1 appl topical BID 12/20/20 12/24/21 topical cream gabapentin 100 mg capsule 100 mg PO BID 05/22/21 12/24/21 pantoprazole 40 mg tablet,delayed 40 mg PO DAILY 05/22/21 12/24/21 release amoxicillin 875 mg-potassium 1 tab PO Q12H 12/24/21 12/24/21 clavulanate 125 mg tablet sodium chloride 0.65 % nasal spray 1 - 2 spray intranasal Q2-3H PRN 12/24/21 12/24/21 aerosol (Deep Sea Nasal) congestion Previous Rx's Medication Instructions Recorded lisinopril 30 mg tablet 30 mg PO DAILY #14 tabs 05/06/21 ondansetron 4 mg disintegrating 4 mg PO Q8H PRN nausea and 10/10/21 tablet vomiting #20 tabs nortriptyline 10 mg capsule 10 mg PO BEDTIME #90 caps 11/10/21 Allergies Allergy/AdvReac Type Severity Reaction Status Date / Time No Known Allergies Allergy Verified 02/24/22 05:54 [No Known Allergies*] Review of Systems Review of Systems: Pertinent positives and negatives as stated in HPI 10 point review of systems is otherwise negative. [facility] Past Medical History Source: nursing notes reviewed Medical History Back pain COVID-19 GERD (gastroesophageal reflux disease) Hypertension Lacunar stroke Migraines Obesity On beta philip at home Psoriasis Sleep apnea with use of continuous positive airway pressure (CPAP) Ulcerative colitis Surgical History History of esophagogastroduodenoscopy (EGD) Hx of colonoscopy No pertinent past surgical history Family History Family History Father No problems noted. Mother No problems noted. Sister No problems noted. Sister No problems noted. Sister Kidney replaced by transplant Brother No problems noted. Brother No problems noted. Brother No problems noted. Brother Diabetes Son No problems noted. Daughter No problems noted. Social History Social History Household Members: None Housing: Apartment Are you a primary child care center assistant director to a significant other at home: No Do you presently have visiting nurse or other home services: No Alcohol intake: former Patient Tobacco Use Status: Never used Tobacco Advance Directives: No Advance Directives Information Provided: Yes service: No Current occupational status: employed Current occupation: [employer] Physical Exam Vital Signs: Vital Signs: Last Vital Signs Temp 98.7 F 02/24/22 07:29 Pulse 50 02/24/22 07:29 Resp 14 02/24/22 07:29 BP 135/71 02/24/22 07:29 Pulse Ox 95 02/24/22 07:29 O2 Del Method 02/24/22 07:29 BMI result Body Mass Index 34.2 VITAL SIGNS: Reviewed. GENERAL: Well developed, well nourished, in no acute distress. HEAD: Normocephalic/atraumatic EYES: PERRLA, EOMI EARS: Ext canals without abnormality OROPHARYNX: no oral lesions noted, posterior pharynx clear LUNGS: Normal breath sounds. No adventitious sounds or accessory muscle use. SpO2<98> CARDIOVASCULAR: Regular rate and rhythm without noted murmurs, no JVD or lower extremity edema. ABDOMEN: Soft, non-tender, non-distended with bowel sounds. MUSCULOSKELETAL: No tenderness, deformities, or effusions noted on gross inspection. EXTREMITIES: No cyanosis, clubbing or edema. SKIN: Inspection of the skin reveals no rashes NEUROLOGIC: Alert and oriented x 4. Strength and sensation to light touch were grossly intact x 4, no facial asymmetry, no pronator drift, cranial nerves 2-12 grossly intact, ambulation was steady gait. Course Course Course Narrative: 57-year-old male with history and clinical presentation suggestive of possible elevated blood pressure although this is just prior to taking morning medications and patient does have a blood pressure log which he has annotated headache next to a blood pressure of 125/80. Unclear whether not this headache is associated with his elevated blood pressure but patient does have a significant history and 2020 of a left lacunar infarct however at this time is completely nonfocal without complaints chest pain or palpitations. Will obtain basic labs as well as EKG. Review of all investigations without acute findings, patient continues to be asymptomatic with good blood pressure control and he was discharged home in stable condition with instructions to call his primary care provider today to discuss adjustment of his hypertensive medications. He remains nonfocal. MDM - Headache Lab Data Result diagrams: 02/24/22 06:44 02/24/22 06:44 Labs: Lab Results 02/24/22 02/24/22 02/24/22 Range/Units 06:44 06:44 06:44 WBC 4.9 (4.8-10.8) X10*3/uL RBC 4.92 (4.60-5.80) X10*6/uL Hgb 14.3 (14.0-18.0) g/dl Hct 42.9 (42.0-52.0) % MCV 87.2 (80.0-98.0) fL MCH 29.1 (27.0-33.0) pg MCHC 33.3 (31.0-36.0) g/dl RDW 13.3 (11.0-16.0) % Plt Count 166 (160-400) X10*3/uL MPV 9.3 L (9.4-12.4) fL Immature Gran % (Auto) 0.2 (0.0-0.4) % Neut % (Auto) 62.8 (45-73) % Lymph % (Auto) 24.1 (20-40) % [place] % (Auto) 11.1 H (2-11) % Eos % (Auto) 1.4 (0-4) % Baso % (Auto) 0.4 (0-2) % Lymph # (Auto) 1.2 (1.2-4.9) X10*3/uL [place] # (Auto) 0.5 (0.1-1.2) X10*3/uL Eos # (Auto) 0.1 (0.0-0.4) X10*3/uL Baso # (Auto) 0.0 (0.0-0.2) X10*3/uL Abs Immat Gran (auto) 0.01 (0.00-0.03) X10*3/uL Absolute Neuts (auto) 3.1 (2.0-8.3) x10*3/uL Absolute Nucleated RBC 0.000 (0.0-0.012) X10*3/uL Nucleated RBC % (auto) 0.0 (0.0-0.2) /100WBC PT 12.7 (10.0-13.1) SEC INR 1.1 (0.9-1.1) Sodium 139 (135-145) mmol/L Potassium 3.6 (3.3-5.1) mmol/L Chloride 103 (96-108) mmol/L Carbon Dioxide 29 (22-29) mmol/L Anion Gap 11 L (12-20) BUN 12 (9-16) mg/dL Creatinine 0.77 (0.5-1.4) mg/dL Estim Creat Clear Calc 122.5 Estimated GFR > 60 Random Glucose 148 H D (60-115) mg/dL Calcium 8.5 D (8.4-10.2) mg/dL Total Bilirubin 0.5 (0.0-1.0) mg/dL AST 22 (5-37) U/L ALT 28 (0-40) U/L Alkaline Phosphatase 62 (39-117) U/L Troponin I High Sens (<3.5-35.0) ng/L Total Protein 6.3 L (6.5-8.0) g/dL Albumin 3.9 (3.5-5.0) g/dL Urine Color Urine Appearance Urine pH (5.0-8.0) Ur Specific Louise (1.005-1.025) Urine Protein (NEG-TRACE) MG/DL Urine Glucose (UA) (NEG) MG/DL Urine Ketones (NEG) MG/DL Urine Blood (NEG) Urine Nitrite (NEG) Ur Leukocyte Esterase (NEG) 02/24/22 02/24/22 Range/Units 06:44 06:52 WBC (4.8-10.8) X10*3/uL RBC (4.60-5.80) X10*6/uL Hgb (14.0-18.0) g/dl Hct (42.0-52.0) % MCV (80.0-98.0) fL MCH (27.0-33.0) pg MCHC (31.0-36.0) g/dl RDW (11.0-16.0) % Plt Count (160-400) X10*3/uL MPV (9.4-12.4) fL Immature Gran % (Auto) (0.0-0.4) % Neut % (Auto) (45-73) % Lymph % (Auto) (20-40) % [place] % (Auto) (2-11) % Eos % (Auto) (0-4) % Baso % (Auto) (0-2) % Lymph # (Auto) (1.2-4.9) X10*3/uL [place] # (Auto) (0.1-1.2) X10*3/uL Eos # (Auto) (0.0-0.4) X10*3/uL Baso # (Auto) (0.0-0.2) X10*3/uL Abs Immat Gran (auto) (0.00-0.03) X10*3/uL Absolute Neuts (auto) (2.0-8.3) x10*3/uL Absolute Nucleated RBC (0.0-0.012) X10*3/uL Nucleated RBC % (auto) (0.0-0.2) /100WBC PT (10.0-13.1) SEC INR (0.9-1.1) Sodium (135-145) mmol/L Potassium (3.3-5.1) mmol/L Chloride (96-108) mmol/L Carbon Dioxide (22-29) mmol/L Anion Gap (12-20) BUN (9-16) mg/dL Creatinine (0.5-1.4) mg/dL Estim Creat Clear Calc Estimated GFR Random Glucose (60-115) mg/dL Calcium (8.4-10.2) mg/dL Total Bilirubin (0.0-1.0) mg/dL AST (5-37) U/L ALT (0-40) U/L Alkaline Phosphatase (39-117) U/L Troponin I High Sens < 3.5 (<3.5-35.0) ng/L Total Protein (6.5-8.0) g/dL Albumin (3.5-5.0) g/dL Urine Color YELLOW Urine Appearance CLEAR Urine pH 6.5 (5.0-8.0) Ur Specific Louise <= 1.005 (1.005-1.025) Urine Protein NEG (NEG-TRACE) MG/DL Urine Glucose (UA) NEG (NEG) MG/DL Urine Ketones NEG (NEG) MG/DL Urine Blood NEG (NEG) Urine Nitrite NEG (NEG) Ur Leukocyte Esterase NEG (NEG) ECG Data Attestation: I personally reviewed and interpreted this ECG as follows: Prior ECG tracings: available for review Interpretation: Sinus bradycardia, HR-54, incomplete right bundle branch block, no STEMI, [place]/QTC are within normal limits. Discharge Plan Discharge Clinical Impression: Hypertension, Headache Patient Disposition: Home, Self-Care Instructions: General Headache (ED), DASH Eating Plan (ED), Hypertension (ED) Additional Instructions: 1. Reanudar todos los medicamentos caseros seg?n lo prescrito. Aseg?rese de reducir art consumo de hasmukh a diario. No exceda los 2000 mg de sodio. 2. Llame hoy mismo a la oficina de art proveedor de atenci?n primaria y hable sobre los ajustes de medicamentos. Regrese a la tasha de emergencias si los s?ntomas empeoran. Prescriptions: No Action triamcinolone acetonide 0.5 % cream 1 appl topical BID aspirin 81 mg Tablet,Delayed Release (Dr/Ec) 81 mg PO DAILY metoprolol tartrate 25 mg Tablet 25 mg PO BID ondansetron 4 mg tablet,disintegrating 4 mg PO Q8H PRN (Reason: nausea and vomiting) Qty: 20 0RF lisinopril 30 mg tablet 30 mg PO DAILY Qty: 14 0RF gabapentin 100 mg capsule 100 mg PO BID pantoprazole 40 mg tablet,delayed release (DR/EC) 40 mg PO DAILY nortriptyline 10 mg capsule 10 mg PO BEDTIME Qty: 90 1RF Deep Sea Nasal 0.65 % aerosol,spray 1 - 2 spray intranasal Q2-3H PRN (Reason: congestion) amoxicillin-pot clavulanate 875-125 mg tablet 1 tab PO Q12H Print Language: [place]
[2022-02-24 07:29] VITALS: BP 135/71; PULSE 50; RESP 14; TEMP 37.1; O2SAT 95
[2022-02-24 09:06] VITALS: BP 130/76; PULSE 51; RESP 18; O2SAT 98
== END 2022-02-24 09:11 | disposition home or self-care (01) ==
PROVIDERS: Emergency Provider Student in an Organized Health Care Education/Training Program
DX: I10 Essential (primary) hypertension (principal); R51.9 Headache, unspecified; E66.9 Obesity, unspecified; Z68.34 Body mass index [BMI] 34.0-34.9, adult; Z79.82 Long term (current) use of aspirin; Z79.899 Other long term (current) drug therapy
CPT/HCPCS: 36415; 80053; 81003; 84484; 85025; 85610; 93005; 99283; 99285

== ENCOUNTER → 2022-03-06 11:33 | Outpatient (BNVA) | payer OTHER, SELFPAY | PROVIDERS: Visit Provider Internal Medicine Gastroenterology | DX: K51.90 Ulcerative colitis, unspecified, without complications (principal) | CPT/HCPCS: 99212 ==

== ENCOUNTER 2022-07-18 12:29 | Emergency (ER) | payer OTHER, SELFPAY ==
--- NOTE | ~2022-07-18 | XR_ITS ---
EXAMINATION: XR chest 2V CLINICAL INFORMATION: Reason for Exam epigastric pain COMPARISON: 2020 TECHNIQUE: XR chest 2V Lungs and Hannah: Both lungs are clear. Pleura: Normal. Costophrenic angles are sharp. No pneumothorax. Heart: The heart is normal in size. Mediastinum: The mediastinum is within normal limits.. Bones: Vertebral C5 along the anterior margin of the dorsal spine suggesting DISH. XR/XR chest 2V IMPRESSION: No radiographic evidence of acute cardiopulmonary disease.
[2022-07-18 12:41] VITALS: BP 170/85; PULSE 65; RESP 18; TEMP 36.6; O2SAT 97; BMI 34.9
--- NOTE | 2022-07-18 12:42 | ED.GENADULT ---
HPI - General Adult General Chief complaint: Abdominal Pain <ALFRED Pantoja - Last Filed: 07/18/22 12:44> Stated complaint: heartburn, bloating <ALFRED Pantoja - Last Filed: 07/18/22 12:44> Time Seen by Provider: 07/18/22 17:17 <ALFRED Pantoja - Last Filed: 07/18/22 12:44> Source: patient <ALFRED Pantoja - Last Filed: 07/18/22 12:44> Mode of arrival: ambulatory <ALFRED Pantoja - Last Filed: 07/18/22 12:44> Limitations: no limitations <ALFRED Pantoja - Last Filed: 07/18/22 12:44> History of Present Illness HPI narrative: Patient with 57 years old with history of stable ulcerative colitis last colonoscopy 01/05 20-endoscopy few years ago was negative comes here for multiple complaints with headache nausea epigastric pain for last 4 -5 days patient is taking Protonix no vomiting no chest no fever or chills no diarrhea <Wild Landa MD - Last Filed: 07/18/22 20:09> Related Data Home medications: Home Medications Medication Instructions Recorded Confirmed aspirin 81 mg tablet,delayed 81 mg PO DAILY 12/20/20 12/24/21 release metoprolol tartrate 25 mg tablet 25 mg PO BID 12/20/20 12/24/21 triamcinolone acetonide 0.5 % 1 appl topical BID 12/20/20 12/24/21 topical cream pantoprazole 40 mg tablet,delayed 40 mg PO DAILY 05/22/21 12/24/21 release atorvastatin 40 mg tablet 40 mg PO DAILY 03/06/22 cetirizine 10 mg tablet 10 mg PO DAILY PRN congestion 03/06/22 gabapentin 300 mg capsule 300 mg PO BID 03/06/22 Previous Rx's Medication Instructions Recorded lisinopril 30 mg tablet 30 mg PO DAILY #14 tabs 05/06/21 peg 3350-electrolytes 236 240 ml PO Q10M #4,000 mL 03/06/22 gram-22.74 gram-6.74 gram-5.86 gram solution (GaviLyte-G) huaifhpmau-yqqobyprrjlpc-qotnkvig 1 cap PO Q6H PRN headache #20 caps 07/18/22 50 mg-300 mg-40 mg capsule (Fioricet) sucralfate 1 gram tablet 1 g PO TID #90 tabs 07/18/22 <ALFRED Pantoja - Last Filed: 07/18/22 12:44> Allergies/adverse reactions: Allergies Allergy/AdvReac Type Severity Reaction Status Date / Time No Known Allergies Allergy Verified 07/18/22 12:41 [No Known Allergies*] <ALFRED Pantoja - Last Filed: 07/18/22 12:44> Review of Systems Review of Systems: Yes all other systems are reviewed and are negative <Wild Landa MD - Last Filed: 07/18/22 20:09> [facility] Past Medical History Medical History: Medical History Back pain COVID-19 GERD (gastroesophageal reflux disease) Hypertension Lacunar stroke Migraines Obesity On beta philip at home Psoriasis Sleep apnea with use of continuous positive airway pressure (CPAP) Ulcerative colitis <ALFRED Pantoja - Last Filed: 07/18/22 12:44> Surgical History: Surgical History History of esophagogastroduodenoscopy (EGD) Hx of colonoscopy No pertinent past surgical history <ALFRED Pantoja - Last Filed: 07/18/22 12:44> Family History Family History: Family History Father No problems noted. Mother No problems noted. Sister No problems noted. Sister No problems noted. Sister Kidney replaced by transplant Brother No problems noted. Brother No problems noted. Brother No problems noted. Brother Diabetes Son No problems noted. Daughter No problems noted. <ALFRED Pantoja - Last Filed: 07/18/22 12:44> Social History Social History: Social History Household Members: None Housing: Apartment Are you a primary manager care to a significant other at home: No Do you presently have visiting nurse or other home services: No Alcohol intake: former Patient Tobacco Use Status: Never used Tobacco Smoked in Last 30 Days: No Use of substances other than those prescribed or required for medical reasons: No Advance Directives: No Advance Directives Information Provided: No service: No Current occupational status: employed Current occupation: [employer] <ALFRED Pantoja - Last Filed: 07/18/22 12:44> Physical Exam ED Vital Signs: Vital Signs - 24 hr 07/18/22 12:41 07/18/22 17:54 07/18/22 18:47 Temperature 97.8 F 98.4 F 97.9 F Pulse Rate 65 51 45 L Respiratory Rate 18 16 Blood Pressure 170/85 H 116/63 134/76 Pulse Oximetry 97 95 98 Oxygen Delivery Method Room Air Room Air Room Air BMI result Body Mass Index 34.9 <ALFRED Pantoja - Last Filed: 07/18/22 12:44> Vital Signs - 24 hr 07/18/22 12:41 07/18/22 17:54 07/18/22 18:47 Temperature 97.8 F 98.4 F 97.9 F Pulse Rate 65 51 45 L Respiratory Rate 18 16 Blood Pressure 170/85 H 116/63 134/76 Pulse Oximetry 97 95 98 Oxygen Delivery Method Room Air Room Air Room Air BMI result Body Mass Index 34.9 <Wild Landa MD - Last Filed: 07/18/22 20:09> Appearance: Alert. Oriented X3. No acute distress. Eyes: PERRLA, No Nystagmus ENT: Pharynx normal. Oral Mucosa moist Neck: Normal inspection. Neck supple. CVS: Normal heart rate and rhythm. Pulses normal. Respiratory: No respiratory distress. Equal air entry bilateral, no wheezing/rales/rhonchi Abdomen: Soft, epigastric tenderness Bowel sounds are present, no mass palpable, no CVA tenderness Skin: Skin warm and dry. Normal skin color. Normal skin turgor. Extremities: No lower extremity edema. No calf tenderness Neuro: Oriented X 3. No motor deficit. No sensory deficit.No cerebellar signs , cranial nerves II-XII intact <Wild Landa MD - Last Filed: 07/18/22 20:09> Course Course Course Narrative: RME performed by Laurita eDlong PA-C. Patient is a 57 year old male with a history of CVA on a baby aspirin presenting to the emergency department with epigastric pain. Patient states that he has had epigastric pain for the last 5 days and it is worse with eating. Given patients age and risk factors, cardiac work up ordered. Patient to be placed back in the waiting room pending results and bed availability. <ALFRED Pantoja - Last Filed: 07/18/22 12:44> Medications Administered Discontinued Medications Generic Name Dose Route Start Last Admin Trade Name Celeste PRN Reason Stop Dose Admin Acetaminophen/Butalbital/Caffeine 1 tab 07/18/22 19:46 07/18/22 19:59 Butalb/Acetamin/Caff 50/325/40 Tablet PO 07/18/22 19:47 1 tab ONCE ONE Administration Al Hydroxide/Mg Hydroxide 30 ml 07/18/22 17:49 07/18/22 18:00 Magnesium Hydrox/Alum Hydrox 30 Ml Oral.Susp PO 07/18/22 17:50 30 ml ONCE ONE Administration Ketorolac Tromethamine 60 mg 07/18/22 17:49 07/18/22 18:01 Ketorolac Tromethamine 60 Mg/2 Ml Vial IM 07/18/22 17:50 60 mg ONCE ONE Administration Ondansetron HCl 4 mg 07/18/22 17:49 07/18/22 18:00 Ondansetron Odt 4 Mg Tab.Rose Marie TRANSLINGU 07/18/22 17:50 4 mg ONCE ONE Administration <ALFRED Pantoja - Last Filed: 07/18/22 12:44> Medications Administered Discontinued Medications Generic Name Dose Route Start Last Admin Trade Name Celeste PRN Reason Stop Dose Admin Acetaminophen/Butalbital/Caffeine 1 tab 07/18/22 19:46 07/18/22 19:59 Butalb/Acetamin/Caff 50/325/40 Tablet PO 07/18/22 19:47 1 tab ONCE ONE Administration Al Hydroxide/Mg Hydroxide 30 ml 07/18/22 17:49 07/18/22 18:00 Magnesium Hydrox/Alum Hydrox 30 Ml Oral.Susp PO 07/18/22 17:50 30 ml ONCE ONE Administration Ketorolac Tromethamine 60 mg 07/18/22 17:49 07/18/22 18:01 Ketorolac Tromethamine 60 Mg/2 Ml Vial IM 07/18/22 17:50 60 mg ONCE ONE Administration Ondansetron HCl 4 mg 07/18/22 17:49 07/18/22 18:00 Ondansetron Odt 4 Mg Tab.Rose Marie TRANSLINGU 07/18/22 17:50 4 mg ONCE ONE Administration <Wild Landa MD - Last Filed: 07/18/22 20:09> Medical Decision Making Lab Data Result Diagrams: : 07/18/22 13:00 07/18/22 13:00 <ALFRED Pantoja - Last Filed: 07/18/22 12:44> Labs: Lab Results 07/18/22 07/18/22 07/18/22 Range/Units 13:00 13:00 13:00 WBC 6.4 (4.8-10.8) X10*3/uL RBC 5.43 (4.60-5.80) X10*6/uL Hgb 15.6 (14.0-18.0) g/dl Hct 47.3 (42.0-52.0) % MCV 87.1 (80.0-98.0) fL MCH 28.7 (27.0-33.0) pg MCHC 33.0 (31.0-36.0) g/dl RDW 13.3 (11.0-16.0) % Plt Count 201 (160-400) X10*3/uL MPV 9.7 (9.4-12.4) fL Immature Gran % (Auto) 0.2 (0.0-0.4) % Neut % (Auto) 57.9 (45-73) % Lymph % (Auto) 29.9 (20-40) % [place] % (Auto) 10.2 (2-11) % Eos % (Auto) 1.6 (0-4) % Baso % (Auto) 0.2 (0-2) % Lymph # (Auto) 1.9 (1.2-4.9) X10*3/uL [place] # (Auto) 0.7 (0.1-1.2) X10*3/uL Eos # (Auto) 0.1 (0.0-0.4) X10*3/uL Baso # (Auto) 0.0 (0.0-0.2) X10*3/uL Abs Immat Gran (auto) 0.01 (0.00-0.03) X10*3/uL Absolute Neuts (auto) 3.7 (2.0-8.3) x10*3/uL Absolute Nucleated RBC 0.000 (0.0-0.012) X10*3/uL Nucleated RBC % (auto) 0.0 (0.0-0.2) /100WBC Sodium 141 (135-145) mmol/L Potassium 3.8 (3.3-5.1) mmol/L Chloride 103 (96-108) mmol/L Carbon Dioxide 30 H (22-29) mmol/L Anion Gap 12 (12-20) BUN 20 H (9-16) mg/dL Creatinine 1.00 (0.5-1.4) mg/dL Estim Creat Clear Calc 95.4 Estimated GFR > 60 Random Glucose 100 (60-115) mg/dL Calcium 9.3 D (8.4-10.2) mg/dL Magnesium 1.9 (1.6-2.6) mg/dL Total Bilirubin 0.6 (0.0-1.0) mg/dL AST 19 (5-37) U/L ALT 23 (0-40) U/L Alkaline Phosphatase 67 (39-117) U/L Troponin I High Sens < 3.5 (<3.5-35.0) ng/L Total Protein 7.0 (6.5-8.0) g/dL Albumin 4.2 (3.5-5.0) g/dL Influenza Type A (PCR) (Negative) Influenza Type B (PCR) (Negative) RSV RNA Qual (PCR) (Negative) SARS-CoV-2 RNA (RT-PCR) (Negative) 07/18/22 Range/Units 13:00 WBC (4.8-10.8) X10*3/uL RBC (4.60-5.80) X10*6/uL Hgb (14.0-18.0) g/dl Hct (42.0-52.0) % MCV (80.0-98.0) fL MCH (27.0-33.0) pg MCHC (31.0-36.0) g/dl RDW (11.0-16.0) % Plt Count (160-400) X10*3/uL MPV (9.4-12.4) fL Immature Gran % (Auto) (0.0-0.4) % Neut % (Auto) (45-73) % Lymph % (Auto) (20-40) % [place] % (Auto) (2-11) % Eos % (Auto) (0-4) % Baso % (Auto) (0-2) % Lymph # (Auto) (1.2-4.9) X10*3/uL [place] # (Auto) (0.1-1.2) X10*3/uL Eos # (Auto) (0.0-0.4) X10*3/uL Baso # (Auto) (0.0-0.2) X10*3/uL Abs Immat Gran (auto) (0.00-0.03) X10*3/uL Absolute Neuts (auto) (2.0-8.3) x10*3/uL Absolute Nucleated RBC (0.0-0.012) X10*3/uL Nucleated RBC % (auto) (0.0-0.2) /100WBC Sodium (135-145) mmol/L Potassium (3.3-5.1) mmol/L Chloride (96-108) mmol/L Carbon Dioxide (22-29) mmol/L Anion Gap (12-20) BUN (9-16) mg/dL Creatinine (0.5-1.4) mg/dL Estim Creat Clear Calc Estimated GFR Random Glucose (60-115) mg/dL Calcium (8.4-10.2) mg/dL Magnesium (1.6-2.6) mg/dL Total Bilirubin (0.0-1.0) mg/dL AST (5-37) U/L ALT (0-40) U/L Alkaline Phosphatase (39-117) U/L Troponin I High Sens (<3.5-35.0) ng/L Total Protein (6.5-8.0) g/dL Albumin (3.5-5.0) g/dL Influenza Type A (PCR) NEGATIVE (Negative) Influenza Type B (PCR) NEGATIVE (Negative) RSV RNA Qual (PCR) NEGATIVE (Negative) SARS-CoV-2 RNA (RT-PCR) NEGATIVE (Negative) <ALFRED Pantoja - Last Filed: 07/18/22 12:44> Lab Results 07/18/22 07/18/2222 Range/Units 13:00 13:00 13:00 WBC 6.4 (4.8-10.8) X10*3/uL RBC 5.43 (4.60-5.80) X10*6/uL Hgb 15.6 (14.0-18.0) g/dl Hct 47.3 (42.0-52.0) % MCV 87.1 (80.0-98.0) fL MCH 28.7 (27.0-33.0) pg MCHC 33.0 (31.0-36.0) g/dl RDW 13.3 (11.0-16.0) % Plt Count 201 (160-400) X10*3/uL MPV 9.7 (9.4-12.4) fL Immature Gran % (Auto) 0.2 (0.0-0.4) % Neut % (Auto) 57.9 (45-73) % Lymph % (Auto) 29.9 (20-40) % [place] % (Auto) 10.2 (2-11) % Eos % (Auto) 1.6 (0-4) % Baso % (Auto) 0.2 (0-2) % Lymph # (Auto) 1.9 (1.2-4.9) X10*3/uL [place] # (Auto) 0.7 (0.1-1.2) X10*3/uL Eos # (Auto) 0.1 (0.0-0.4) X10*3/uL Baso # (Auto) 0.0 (0.0-0.2) X10*3/uL Abs Immat Gran (auto) 0.01 (0.00-0.03) X10*3/uL Absolute Neuts (auto) 3.7 (2.0-8.3) x10*3/uL Absolute Nucleated RBC 0.000 (0.0-0.012) X10*3/uL Nucleated RBC % (auto) 0.0 (0.0-0.2) /100WBC Sodium 141 (135-145) mmol/L Potassium 3.8 (3.3-5.1) mmol/L Chloride 103 (96-108) mmol/L Carbon Dioxide 30 H (22-29) mmol/L Anion Gap 12 (12-20) BUN 20 H (9-16) mg/dL Creatinine 1.00 (0.5-1.4) mg/dL Estim Creat Clear Calc 95.4 Estimated GFR > 60 Random Glucose 100 (60-115) mg/dL Calcium 9.3 D (8.4-10.2) mg/dL Magnesium 1.9 (1.6-2.6) mg/dL Total Bilirubin 0.6 (0.0-1.0) mg/dL AST 19 (5-37) U/L ALT 23 (0-40) U/L Alkaline Phosphatase 67 (39-117) U/L Troponin I High Sens < 3.5 (<3.5-35.0) ng/L Total Protein 7.0 (6.5-8.0) g/dL Albumin 4.2 (3.5-5.0) g/dL Influenza Type A (PCR) (Negative) Influenza Type B (PCR) (Negative) RSV RNA Qual (PCR) (Negative) SARS-CoV-2 RNA (RT-PCR) (Negative) 07/18/22 Range/Units 13:00 WBC (4.8-10.8) X10*3/uL RBC (4.60-5.80) X10*6/uL Hgb (14.0-18.0) g/dl Hct (42.0-52.0) % MCV (80.0-98.0) fL MCH (27.0-33.0) pg MCHC (31.0-36.0) g/dl RDW (11.0-16.0) % Plt Count (160-400) X10*3/uL MPV (9.4-12.4) fL Immature Gran % (Auto) (0.0-0.4) % Neut % (Auto) (45-73) % Lymph % (Auto) (20-40) % [place] % (Auto) (2-11) % Eos % (Auto) (0-4) % Baso % (Auto) (0-2) % Lymph # (Auto) (1.2-4.9) X10*3/uL [place] # (Auto) (0.1-1.2) X10*3/uL Eos # (Auto) (0.0-0.4) X10*3/uL Baso # (Auto) (0.0-0.2) X10*3/uL Abs Immat Gran (auto) (0.00-0.03) X10*3/uL Absolute Neuts (auto) (2.0-8.3) x10*3/uL Absolute Nucleated RBC (0.0-0.012) X10*3/uL Nucleated RBC % (auto) (0.0-0.2) /100WBC Sodium (135-145) mmol/L Potassium (3.3-5.1) mmol/L Chloride (96-108) mmol/L Carbon Dioxide (22-29) mmol/L Anion Gap (12-20) BUN (9-16) mg/dL Creatinine (0.5-1.4) mg/dL Estim Creat Clear Calc Estimated GFR Random Glucose (60-115) mg/dL Calcium (8.4-10.2) mg/dL Magnesium (1.6-2.6) mg/dL Total Bilirubin (0.0-1.0) mg/dL AST (5-37) U/L ALT (0-40) U/L Alkaline Phosphatase (39-117) U/L Troponin I High Sens (<3.5-35.0) ng/L Total Protein (6.5-8.0) g/dL Albumin (3.5-5.0) g/dL Influenza Type A (PCR) NEGATIVE (Negative) Influenza Type B (PCR) NEGATIVE (Negative) RSV RNA Qual (PCR) NEGATIVE (Negative) SARS-CoV-2 RNA (RT-PCR) NEGATIVE (Negative) <Wild Landa MD - Last Filed: 07/18/22 20:09> Discharge Plan Discharge Clinical Impression: Headache, Chronic GERD <ALFRED Pantoja - Last Filed: 07/18/22 12:44> Patient Disposition: Home, Self-Care <ALFRED Pantoja - Last Filed: 07/18/22 12:44> Instructions: Gastroesophageal Reflux Disease (ED), General Headache (ED) <ALFRED Pantoja - Last Filed: 07/18/22 12:44> Additional Instructions: Drink plenty of fluids Continue your Protonix come take sucralfate 1 tablet half an hour before you have meals Take medication for headache as prescribed and follow with PCP <ALFRED Pantoja - Last Filed: 07/18/22 12:44> Prescriptions: New ndavekwpte-nmzuvypppnyuw-cqfi [Fioricet] 50-300-40 mg capsule 1 cap PO Q6H PRN (Reason: headache) Qty: 20 0RF sucralfate 1 gram tablet 1 g PO TID Qty: 90 0RF No Action triamcinolone acetonide 0.5 % cream 1 appl topical BID aspirin 81 mg Tablet,Delayed Release (Dr/Ec) 81 mg PO DAILY metoprolol tartrate 25 mg Tablet 25 mg PO BID lisinopril 30 mg tablet 30 mg PO DAILY Qty: 14 0RF pantoprazole 40 mg tablet,delayed release (DR/EC) 40 mg PO DAILY atorvastatin 40 mg tablet 40 mg PO DAILY cetirizine 10 mg tablet 10 mg PO DAILY PRN (Reason: congestion) gabapentin 300 mg capsule 300 mg PO BID peg 3350-electrolytes [GaviLyte-G] 236-22.74-6.74 -5.86 gram recon soln 240 ml PO Q10M Qty: 4000 0RF Rx Instructions: until fecal effluent is clear <ALFRED Pantoja - Last Filed: 07/18/22 12:44>
--- NOTE | 2022-07-18 12:43 | ECG_ITS ---
Test Reason : epigastric pain Blood Pressure : / mmHG Vent. Rate : 064 BPM Atrial Rate : 064 BPM P-R Int : 150 ms QRS Dur : 098 ms QT Int : 400 ms P-R-T Axes : 034 001 032 degrees QTc Int : 412 ms Normal sinus rhythm Incomplete right bundle branch block Minimal voltage criteria for LVH, may be normal variant ( R in aVL ) Borderline ECG When compared with ECG of 24-FEB-2022 06:42, No significant change was found Referred By: Laurita Delong Electronically Signed By:DANIEL EID MD
[2022-07-18 13:05] LABS: MANUAL DIFF FLAG NO
[2022-07-18 13:22] LABS: Alanine Aminotransferase 23 U/L (0-40); Albumin Level 4.2 g/dL (3.5-5.0); Alkaline Phosphatase 67 U/L (39-117); Anion Gap 12 (12-20); Aspartate Amino Transferase 19 U/L (5-37); Bilirubin Total 0.6 mg/dL (0.0-1.0); Blood Urea Nitrogen 20 mg/dL (9-16); Calcium 9.3 mg/dL (8.4-10.2); Carbon Dioxide 30 mmol/L (22-29); Chloride 103 mmol/L (96-108); Creatinine Clr Calc Pharmacy 95.4; Estimated Glomerular Filt Rate > 60; Glucose Random 100 mg/dL (60-115); Magnesium 1.9 mg/dL (1.6-2.6); Potassium 3.8 mmol/L (3.3-5.1); Sodium 141 mmol/L (135-145)
[2022-07-18 13:23] LABS: Basophils Percent Auto 0.2 % (0-2); Eosinophils Absolute Auto 0.1 X10*3/uL (0.0-0.4); Eosinophils Percent Auto 1.6 % (0-4); Hematocrit 47.3 % (42.0-52.0); Hemoglobin 15.6 g/dl (14.0-18.0); Imm Gran Abs Auto 0.01 X10*3/uL (0.00-0.03); Imm Gran Pct Auto 0.2 % (0.0-0.4); Lymphocytes Absolute Auto 1.9 X10*3/uL (1.2-4.9); Lymphocytes Percent Auto 29.9 % (20-40); Mean Corpuscular Hemoglobin 28.7 pg (27.0-33.0); Mean Corpuscular Volume 87.1 fL (80.0-98.0); Mean Platelet Volume 9.7 fL (9.4-12.4); Monocytes Absolute Auto 0.7 X10*3/uL (0.1-1.2); Monocytes Percent Auto 10.2 % (2-11); Neutrophils Absolute Auto 3.7 x10*3/uL (2.0-8.3); Neutrophils Percent Auto 57.9 % (45-73); Platelet Count 201 X10*3/uL (160-400); Red Blood Count 5.43 X10*6/uL (4.60-5.80); Red Cell Distribution Width 13.3 % (11.0-16.0); White Blood Count 6.4 X10*3/uL (4.8-10.8)
[2022-07-18 13:29] LABS: Troponin-I High Sensitivity < 3.5 ng/L (<3.5-35.0)
[2022-07-18 13:57] LABS: Influenza A PCR NEGATIVE (Negative); Influenza B PCR NEGATIVE (Negative); Resp Syncy Virus RNA Qual PCR NEGATIVE (Negative); SARS COV2 PCR INHOUSE NEGATIVE (Negative)
[2022-07-18 17:54] VITALS: BP 116/63; PULSE 51; RESP 16; TEMP 36.9; O2SAT 95
[2022-07-18] MEDS: Ondansetron ODT 4 MG TAB.RAPDIS TRANSLINGU (18:00)
[2022-07-18] MEDS: Magnesium Hydrox/Alum Hydrox 30 ML ORAL.SUSP PO (18:00)
[2022-07-18] MEDS: Ketorolac Tromethamine 60 MG/2 ML VIAL IM (18:01)
[2022-07-18 18:47] VITALS: BP 134/76; PULSE 45; TEMP 36.6; O2SAT 98
[2022-07-18] MEDS: Butalb/Acetamin/Caff 50/325/40 TABLET 1 TAB PO (19:59)
--- NOTE | 2022-07-18 20:09 | PC.NURSE ---
pt medicated according to mar. pt ambulates at tie of discharge. pt provided with discharge packet. pt verbalized understanding ofg discharge plan
== END 2022-07-18 20:11 | disposition home or self-care (01) ==
PROVIDERS: Physician Assistant Medical; Emergency Provider Internal Medicine; PCP Internal Medicine
DX: R51.9 Headache, unspecified (principal); K21.9 Gastro-esophageal reflux disease without esophagitis; R10.13 Epigastric pain; Z20.828 Contact with and (suspected) exposure to other viral communicable diseases; I10 Essential (primary) hypertension; E66.9 Obesity, unspecified; Z68.34 Body mass index [BMI] 34.0-34.9, adult; Z87.891 Personal history of nicotine dependence; Z79.82 Long term (current) use of aspirin; Z79.02 Long term (current) use of antithrombotics/antiplatelets; Z79.899 Other long term (current) drug therapy
CPT/HCPCS: 0241U; 71046; 80053; 83735; 84484; 85025; 93005; 96372; 99284; 99285; J1885

== ENCOUNTER 2022-08-13 10:01 | Emergency (ER) | payer OTHER, SELFPAY ==
--- NOTE | 2022-08-13 10:23 | ED.EYEPROB ---
HPI - Eye Problem General Chief complaint: Eye Problems Stated complaint: r eye issue Time Seen by Provider: 08/13/22 10:57 Related Data Home Medications Medication Instructions Recorded Confirmed aspirin 81 mg tablet,delayed 81 mg PO DAILY 12/20/20 12/24/21 release metoprolol tartrate 25 mg tablet 25 mg PO BID 12/20/20 12/24/21 triamcinolone acetonide 0.5 % 1 appl topical BID 12/20/20 12/24/21 topical cream pantoprazole 40 mg tablet,delayed 40 mg PO DAILY 05/22/21 12/24/21 release atorvastatin 40 mg tablet 40 mg PO DAILY 03/06/22 cetirizine 10 mg tablet 10 mg PO DAILY PRN congestion 03/06/22 gabapentin 300 mg capsule 300 mg PO BID 03/06/22 Previous Rx's Medication Instructions Recorded lisinopril 30 mg tablet 30 mg PO DAILY #14 tabs 05/06/21 peg 3350-electrolytes 236 240 ml PO Q10M #4,000 mL 03/06/22 gram-22.74 gram-6.74 gram-5.86 gram solution (GaviLyte-G) efijajkpqc-aeaglqqqqmdtw-kcnywblv 1 cap PO Q6H PRN headache #20 caps 07/18/22 50 mg-300 mg-40 mg capsule (Fioricet) sucralfate 1 gram tablet 1 g PO TID #90 tabs 07/18/22 sulfacetamide sodium 10 % eye drops 2 drp ophthalmic-Right Q4H 5 days 08/13/22 #15 mL Allergies Allergy/AdvReac Type Severity Reaction Status Date / Time No Known Allergies Allergy Verified 07/18/22 12:41 [No Known Allergies*] [facility] Past Medical History Medical History Back pain COVID-19 GERD (gastroesophageal reflux disease) Hypertension Lacunar stroke Migraines Obesity On beta philip at home Psoriasis Sleep apnea with use of continuous positive airway pressure (CPAP) Ulcerative colitis Surgical History History of esophagogastroduodenoscopy (EGD) Hx of colonoscopy No pertinent past surgical history Family History Family History Father No problems noted. Mother No problems noted. Sister No problems noted. Sister No problems noted. Sister Kidney replaced by transplant Brother No problems noted. Brother No problems noted. Brother No problems noted. Brother Diabetes Son No problems noted. Daughter No problems noted. Social History Social History Household Members: None Housing: Apartment Are you a primary animal care provider to a significant other at home: No Do you presently have visiting nurse or other home services: No Alcohol intake: former Patient Tobacco Use Status: Never used Tobacco Advance Directives: No service: No Current occupational status: employed Current occupation: [employer] Physical Exam Vital Signs: Vital Signs: Last Vital Signs Temp 98.2 F 08/13/22 10:24 Pulse 50 08/13/22 10:24 Resp 16 08/13/22 10:24 BP 127/64 08/13/22 10:24 Pulse Ox 99 08/13/22 10:24 O2 Del Method 08/13/22 10:24 BMI result Body Mass Index 34.9 Course Course Course Narrative: This is a rapid medical exam. Deferred additional HPI, ROS, PE to primary provider. 57 yo male w/ history of HTN, PAD, PVD, UC, FELICIA here with right eye redness/pressure/itching/blurriness since Wednesday-preceding headache Wednesday (intermittent since-when headache comes symptoms of right eye are worsened as well as right sided facial pain). Called eye doctor and has appt 09/01. VSS Medications Administered Discontinued Medications Generic Name Dose Route Start Last Admin Trade Name Celeste PRN Reason Stop Dose Admin Fluorescein Sodium 1 strip 08/13/22 11:33 08/13/22 11:40 Fluorescein Sodium Strip EYE-RIGHT 08/13/22 11:34 1 strip ONCE ONE Administration Tetracaine HCl 3 drop 08/13/22 11:33 08/13/22 11:41 Tetracaine Hcl/Pf 0.5% Oph [place] 4 Ml Drops EYE-RIGHT 08/13/22 11:34 3 drop ONCE ONE Administration Discharge Plan Discharge Clinical Impression: Conjunctivitis Patient Disposition: Home, Self-Care Instructions: Conjunctivitis (ED) Additional Instructions: Call your eye doctor for follow-up within the week Return if symptoms worsen. Medications as directed. Prescriptions: New sulfacetamide sodium 10 % drops 2 drp ophthalmic-Right Q4H 5 Days Qty: 15 0RF No Action triamcinolone acetonide 0.5 % cream 1 appl topical BID aspirin 81 mg Tablet,Delayed Release (Dr/Ec) 81 mg PO DAILY metoprolol tartrate 25 mg Tablet 25 mg PO BID yqokmqryfa-rxpccvixkgfud-gytj [Fioricet] 50-300-40 mg capsule 1 cap PO Q6H PRN (Reason: headache) Qty: 20 0RF sucralfate 1 gram tablet 1 g PO TID Qty: 90 0RF lisinopril 30 mg tablet 30 mg PO DAILY Qty: 14 0RF pantoprazole 40 mg tablet,delayed release (DR/EC) 40 mg PO DAILY atorvastatin 40 mg tablet 40 mg PO DAILY cetirizine 10 mg tablet 10 mg PO DAILY PRN (Reason: congestion) gabapentin 300 mg capsule 300 mg PO BID peg 3350-electrolytes [GaviLyte-G] 236-22.74-6.74 -5.86 gram recon soln 240 ml PO Q10M Qty: 4000 0RF Rx Instructions: until fecal effluent is clear Interventions: ED Discharge Assessment Last Done: 08/13/22 12:19 Discharge Date/Time: 08/13/22 12:21
[2022-08-13 10:24] VITALS: BP 127/64; PULSE 50; RESP 16; TEMP 36.8; O2SAT 99; BMI 34.9
--- NOTE | 2022-08-13 11:09 | ED.GENADULT ---
HPI - General Adult General Chief complaint: Eye Problems Stated complaint: r eye issue Time Seen by Provider: 08/13/22 10:57 Source: patient Limitations: no limitations History of Present Illness HPI narrative: 57-year-old male complaining of right eye irritation since yesterday morning. Patient states his lids were matted crest together. Positive drainage. Patient has also had a headache on and off recently. Patient does wear eyeglasses. No trauma to the right eye. Patient is without nausea vomiting disease. Patient has no other complaints at this time. Symptoms mild to moderate Related Data Home Medications Medication Instructions Recorded Confirmed aspirin 81 mg tablet,delayed 81 mg PO DAILY 12/20/20 12/24/21 release metoprolol tartrate 25 mg tablet 25 mg PO BID 12/20/20 12/24/21 triamcinolone acetonide 0.5 % 1 appl topical BID 12/20/20 12/24/21 topical cream pantoprazole 40 mg tablet,delayed 40 mg PO DAILY 05/22/21 12/24/21 release atorvastatin 40 mg tablet 40 mg PO DAILY 03/06/22 cetirizine 10 mg tablet 10 mg PO DAILY PRN congestion 03/06/22 gabapentin 300 mg capsule 300 mg PO BID 03/06/22 Previous Rx's Medication Instructions Recorded lisinopril 30 mg tablet 30 mg PO DAILY #14 tabs 05/06/21 peg 3350-electrolytes 236 240 ml PO Q10M #4,000 mL 03/06/22 gram-22.74 gram-6.74 gram-5.86 gram solution (GaviLyte-G) nqkhmkykkj-vgwotfvfgsfnc-qpnzjhgt 1 cap PO Q6H PRN headache #20 caps 07/18/22 50 mg-300 mg-40 mg capsule (Fioricet) sucralfate 1 gram tablet 1 g PO TID #90 tabs 07/18/22 sulfacetamide sodium 10 % eye drops 2 drp ophthalmic-Right Q4H 5 days 08/13/22 #15 mL Allergies Allergy/AdvReac Type Severity Reaction Status Date / Time No Known Allergies Allergy Verified 07/18/22 12:41 [No Known Allergies*] Review of Systems Review of Systems: Constitutional : No Weight loss, No Fever, No Chills ENT/Mouth : No sore throat Eyes: Right-sided eye pain, irritation, discharge, crustation on right eyelid Cardiovascular : No Chest Pain, No SOB Respiratory : No Cough, No Sputum Gastrointestinal : No Nausea, No Vomiting, No Diarrhea, No Constipation, No abdominal Pain, No Hematochezia, No Melena Musculoskeletal : Denies pain muscle skeletal system Neuro : No Weakness, No Numbness, positive headache PMFSH Past Medical History Medical History Back pain COVID-19 GERD (gastroesophageal reflux disease) Hypertension Lacunar stroke Migraines Obesity On beta philip at home Psoriasis Sleep apnea with use of continuous positive airway pressure (CPAP) Ulcerative colitis Surgical History History of esophagogastroduodenoscopy (EGD) Hx of colonoscopy No pertinent past surgical history Family History Family History Father No problems noted. Mother No problems noted. Sister No problems noted. Sister No problems noted. Sister Kidney replaced by transplant Brother No problems noted. Brother No problems noted. Brother No problems noted. Brother Diabetes Son No problems noted. Daughter No problems noted. Social History Social History Household Members: None Housing: Apartment Are you a primary transitional care liaison to a significant other at home: No Do you presently have visiting nurse or other home services: No Alcohol intake: former Patient Tobacco Use Status: Never used Tobacco Advance Directives: No service: No Current occupational status: employed Current occupation: [employer] Physical Exam ED Vital Signs: Vital Signs - 24 hr 08/13/22 10:24 Temperature 98.2 F Pulse Rate 50 Respiratory Rate 16 Blood Pressure 127/64 Pulse Oximetry 99 Oxygen Delivery Method Room Air BMI result Body Mass Index 34.9 vital signs have been reviewed as normal and appeared to be correct. Blood pressure normal. Heart rate normal. Respiration rate normal. Temperature normal. Oxygen saturation normal. Appearance: Alert. Oriented X3. No acute distress. Head: Normal external exam. Normocephalic. Atraumatic. Eyes: PERRLA. EOMI. Right sclera injected. Red reflex present. No pain with pupil constriction. Some yellow discharge present. Orbit nontender. ENT: Pharynx normal. Uvula midline. Moist mucous membranes. Neck: Soft full range of motion, no nuchal rigidity Back: Full range of motion noted. Skin: Skin warm and dry. Normal skin color. No rashes noted Extremities: No lower extremity edema. Extremities exhibit normal range of motion. Extremities nontender. Neuro: Oriented X 3. No motor deficit. No sensory deficit. Reflexes normal. Course Course Course Narrative: Right eye conjunctivitis Right eye stye Iritis less likely no pain with pupil constriction. Glaucoma less likely Corneal abrasion Medications Administered Discontinued Medications Generic Name Dose Route Start Last Admin Trade Name Freq PRN Reason Stop Dose Admin Fluorescein Sodium 1 strip 08/13/22 11:33 08/13/22 11:40 Fluorescein Sodium Strip EYE-RIGHT 08/13/22 11:34 1 strip ONCE ONE Administration Tetracaine HCl 3 drop 08/13/22 11:33 08/13/22 11:41 Tetracaine Hcl/Pf 0.5% Oph Belle 4 Ml Drops EYE-RIGHT 08/13/22 11:34 3 drop ONCE ONE Administration Medical Decision Making Medical Decision Making [facility] Narrative: 57-year-old male who presents with right eye discomfort and discharge. Right lid was matted together and this a.m... Patient denies any trauma to the right eye. 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 Symptoms seem consistent with conjunctivitis. Visual acuity decrease in the right eye 20/25 left eye. Intra-ocular pressure of the right eye was 18 Tetracaine use with fluorescein stain no corneal abrasion visualized. Patient has no pain with pupil constriction on likely iritis. Symptoms seem most consistent with conjunctivitis will treat with eyedrops follow-up with ophthalmology will be planned Discharge Plan Discharge Clinical Impression: Conjunctivitis Patient Disposition: Home, Self-Care Instructions: Conjunctivitis (ED) Additional Instructions: Call your eye doctor for follow-up within the week Return if symptoms worsen. Medications as directed. Prescriptions: New sulfacetamide sodium 10 % drops 2 drp ophthalmic-Right Q4H 5 Days Qty: 15 0RF No Action triamcinolone acetonide 0.5 % cream 1 appl topical BID aspirin 81 mg Tablet,Delayed Release (Dr/Ec) 81 mg PO DAILY metoprolol tartrate 25 mg Tablet 25 mg PO BID oifvnnlqyd-udtzcgezqkkfz-zofe [Fioricet] 50-300-40 mg capsule 1 cap PO Q6H PRN (Reason: headache) Qty: 20 0RF sucralfate 1 gram tablet 1 g PO TID Qty: 90 0RF lisinopril 30 mg tablet 30 mg PO DAILY Qty: 14 0RF pantoprazole 40 mg tablet,delayed release (DR/EC) 40 mg PO DAILY atorvastatin 40 mg tablet 40 mg PO DAILY cetirizine 10 mg tablet 10 mg PO DAILY PRN (Reason: congestion) gabapentin 300 mg capsule 300 mg PO BID peg 3350-electrolytes [GaviLyte-G] 236-22.74-6.74 -5.86 gram recon soln 240 ml PO Q10M Qty: 4000 0RF Rx Instructions: until fecal effluent is clear
[2022-08-13] MEDS: Fluorescein Sodium STRIP 1 STRIP EYE-RIGHT (11:40)
[2022-08-13] MEDS: Tetracaine HCl/PF 0.5% Oph Sol 4 ML DROPS 3 DROP EYE-RIGHT (11:41)
== END 2022-08-13 12:21 | disposition home or self-care (01) ==
PROVIDERS: Emergency Provider Student in an Organized Health Care Education/Training Program; PCP Internal Medicine
DX: H10.31 Unspecified acute conjunctivitis, right eye (principal); Z79.899 Other long term (current) drug therapy
CPT/HCPCS: 99282; 99283

== ENCOUNTER → 2022-10-05 11:02 | Outpatient (BNVA) | payer OTHER, SELFPAY | PROVIDERS: PCP Internal Medicine; Visit Provider Internal Medicine Gastroenterology | DX: R10.32 Left lower quadrant pain (principal); R10.31 Right lower quadrant pain; F41.8 Other specified anxiety disorders | CPT/HCPCS: 99212 ==

== ENCOUNTER 2022-10-12 05:18 | Emergency (ER) | payer OTHER, SELFPAY ==
[2022-10-12 05:54] VITALS: BP 148/70; PULSE 63; RESP 16; TEMP 36.7; O2SAT 98; BMI 35.7
--- NOTE | 2022-10-12 06:45 | ECG_ITS ---
Test Reason : WEAKNESS Blood Pressure : / mmHG Vent. Rate : 047 BPM Atrial Rate : 047 BPM P-R Int : 166 ms QRS Dur : 096 ms QT Int : 426 ms P-R-T Axes : 034 001 024 degrees QTc Int : 377 ms Sinus bradycardia Incomplete right bundle branch block Minimal voltage criteria for LVH, may be normal variant ( R in aVL ) Inferior infarct , age undetermined Abnormal ECG No significant changes when compared with the previous EKG of 18 jul 2022 Referred By: Kimberly Belle Electronically Signed By:ADILENE MARTIN
[2022-10-12 07:15] VITALS: BP 140/82; PULSE 47; RESP 16; TEMP 36.9; O2SAT 99
[2022-10-12 07:28] LABS: MANUAL DIFF FLAG NO
[2022-10-12 07:29] LABS: Basophils Percent Auto 0.4 % (0-2); Eosinophils Absolute Auto 0.1 X10*3/uL (0.0-0.4); Eosinophils Percent Auto 0.9 % (0-4); Hematocrit 45.8 % (42.0-52.0); Hemoglobin 15.4 g/dl (14.0-18.0); Imm Gran Abs Auto 0.01 X10*3/uL (0.00-0.03); Imm Gran Pct Auto 0.2 % (0.0-0.4); Lymphocytes Absolute Auto 1.3 X10*3/uL (1.2-4.9); Lymphocytes Percent Auto 23.9 % (20-40); Mean Corpuscular HGB Conc 33.6 g/dl (31.0-36.0); Mean Corpuscular Hemoglobin 29.3 pg (27.0-33.0); Mean Corpuscular Volume 87.1 fL (80.0-98.0); Mean Platelet Volume 9.8 fL (9.4-12.4); Monocytes Absolute Auto 0.5 X10*3/uL (0.1-1.2); Monocytes Percent Auto 8.5 % (2-11); Neutrophils Absolute Auto 3.6 x10*3/uL (2.0-8.3); Neutrophils Percent Auto 66.1 % (45-73); Platelet Count 190 X10*3/uL (160-400); Red Blood Count 5.26 X10*6/uL (4.60-5.80); Red Cell Distribution Width 12.8 % (11.0-16.0); White Blood Count 5.4 X10*3/uL (4.8-10.8)
--- NOTE | 2022-10-12 07:36 | ED_ITS ---
HPI - Arrhythmia/Palpitations General Chief Complaint: Arrhythmia/Palpitations Stated Complaint: fatigue, weakness Time Seen by Provider: 10/12/22 06:44 Source: patient Mode of arrival: ambulatory History of Present Illness HPI narrative: 57-year-old male who presents with feeling heart palpitations Wednesday afternoon after work denies any caffeinated ingestion but states that he had some associated shortness of breath and went to [facility] for a full evaluation and at that time was informed that there were no acute findings. Patient states that he presents today because he continues to have heart palpitations in the evening prior to going to sleep and this raises concerns for him. He otherwise denies any fever, chills, GI or symptoms. Related Data Home Medications Medication Instructions Recorded Confirmed aspirin 81 mg tablet,delayed 81 mg PO DAILY 12/20/20 12/24/21 release metoprolol tartrate 25 mg tablet 25 mg PO BID 12/20/20 12/24/21 triamcinolone acetonide 0.5 % 1 appl topical BID 12/20/20 12/24/21 topical cream pantoprazole 40 mg tablet,delayed 40 mg PO DAILY 05/22/21 12/24/21 release atorvastatin 40 mg tablet 40 mg PO DAILY 03/06/22 cetirizine 10 mg tablet 10 mg PO DAILY PRN congestion 03/06/22 gabapentin 300 mg capsule 300 mg PO BID 03/06/22 Previous Rx's Medication Instructions Recorded lisinopril 30 mg tablet 30 mg PO DAILY #14 tabs 05/06/21 paiprepywl-zpzjbrbcsznjq-cqnjsnkg 1 cap PO Q6H PRN headache #20 caps 07/18/22 50 mg-300 mg-40 mg capsule (Fioricet) sucralfate 1 gram tablet 1 g PO TID #90 tabs 07/18/22 peg-electrolyte solution 420 gram 240 ml PO Q10M #4,000 mL 10/05/22 oral solution Allergies Allergy/AdvReac Type Severity Reaction Status Date / Time No Known Allergies Allergy Verified 07/18/22 12:41 [No Known Allergies*] Review of Systems Review of Systems: Pertinent positives and negatives as stated in HPI [facility] Past Medical History Source: nursing notes reviewed Medical History Back pain COVID-19 GERD (gastroesophageal reflux disease) Hypertension Lacunar stroke Migraines Obesity On beta philip at home Psoriasis Sleep apnea with use of continuous positive airway pressure (CPAP) Ulcerative colitis Surgical History History of esophagogastroduodenoscopy (EGD) Hx of colonoscopy No pertinent past surgical history Family History Family History Father No problems noted. Mother No problems noted. Sister No problems noted. Sister No problems noted. Sister Kidney replaced by transplant Brother No problems noted. Brother No problems noted. Brother No problems noted. Brother Diabetes Son No problems noted. Daughter No problems noted. Social History Social History Household Members: None Housing: Apartment Are you a primary behavioral health care manager to a significant other at home: No Do you presently have visiting nurse or other home services: No Alcohol intake: former Patient Tobacco Use Status: Never used Tobacco Advance Directives: No service: No Current occupational status: employed Current occupation: [employer] Physical Exam Vital Signs: Vital Signs: Last Vital Signs Temp 98.4 F 10/12/22 07:15 Pulse 47 L 10/12/22 07:15 Resp 16 10/12/22 07:15 BP 140/82 H 10/12/22 07:15 Pulse Ox 99 10/12/22 07:15 O2 Del Method Room Air 10/12/22 07:15 BMI result Body Mass Index 35.7 VITAL SIGNS: Reviewed. GENERAL: Well developed, well nourished, in no acute distress. HEAD: Normocephalic/atraumatic EYES: PERRLA, EOMI EARS: Ext canals without abnormality NOSE: Nares patent bilateral OROPHARYNX: no oral lesions noted, posterior pharynx clear NECK: Supple, no adenopathy LUNGS: Normal breath sounds. No adventitious sounds or accessory muscle use. SpO2<99> CARDIOVASCULAR: Regular rate and rhythm without noted murmurs ABDOMEN: Soft, non-tender, non-distended with bowel sounds. MUSCULOSKELETAL: No tenderness, deformities, or effusions noted on gross inspection. EXTREMITIES: No cyanosis, clubbing or edema. SKIN: Inspection of the skin reveals no rashes NEUROLOGIC: Alert and oriented x 4. Strength and sensation to light touch were grossly intact x 4. Medical Decision Making Medical Decision Making MDM Narrative: 57-year-old male with history and clinical presentation suggestive of benign palpitations as patient also endorsed he has been worked up for these previously. On review of patient's medication list does appear that he is on Lopressor which raises concerns for the current heart rate of 47. Will obtain basic labs, quick review of the EKG in my interpretation is there are no acute findings to better explain the palpitations at this time. I reviewed all investigations and my interpretation is that these are likely benign palpitations, but my recommendation to the patient after informing him of all results is that he should follow-up with cardiology to be further monitored with either an event monitor or a Holter monitor to better characterize the sensation that he is experiencing. I also recommended to the patient to proceed with daily dose of the metoprolol tartrate given the heart rate that I am currently seeing. Differential Diagnosis Please see the discussion above Lab Data Please see the discussion above 10/12/22 07:24 10/12/22 07:24 Labs: Lab Results 10/12/22 10/12/22 10/12/22 Range/Units 07:24 07:24 07:24 WBC 5.4 (4.8-10.8) X10*3/uL RBC 5.26 (4.60-5.80) X10*6/uL Hgb 15.4 (14.0-18.0) g/dl Hct 45.8 (42.0-52.0) % MCV 87.1 (80.0-98.0) fL MCH 29.3 (27.0-33.0) pg MCHC 33.6 (31.0-36.0) g/dl RDW 12.8 (11.0-16.0) % Plt Count 190 (160-400) X10*3/uL MPV 9.8 (9.4-12.4) fL Immature Gran % (Auto) 0.2 (0.0-0.4) % Neut % (Auto) 66.1 (45-73) % Lymph % (Auto) 23.9 (20-40) % [place] % (Auto) 8.5 (2-11) % Eos % (Auto) 0.9 (0-4) % Baso % (Auto) 0.4 (0-2) % Lymph # (Auto) 1.3 (1.2-4.9) X10*3/uL [place] # (Auto) 0.5 (0.1-1.2) X10*3/uL Eos # (Auto) 0.1 (0.0-0.4) X10*3/uL Baso # (Auto) 0.0 (0.0-0.2) X10*3/uL Abs Immat Gran (auto) 0.01 (0.00-0.03) X10*3/uL Absolute Neuts (auto) 3.6 (2.0-8.3) x10*3/uL Absolute Nucleated RBC 0.000 (0.0-0.012) X10*3/uL Nucleated RBC % (auto) 0.0 (0.0-0.2) /100WBC Sodium 140 (135-145) mmol/L Potassium 4.6 D (3.3-5.1) mmol/L Chloride 105 (96-108) mmol/L Carbon Dioxide 27 (22-29) mmol/L Anion Gap 13 (12-20) BUN 12 (9-16) mg/dL Creatinine 0.87 (0.5-1.4) mg/dL Estim Creat Clear Calc 110.8 Estimated GFR > 60 Random Glucose 103 (60-115) mg/dL Calcium 8.8 (8.4-10.2) mg/dL Total Bilirubin 0.5 (0.0-1.0) mg/dL AST 23 (5-37) U/L ALT 33 (0-40) U/L Alkaline Phosphatase 63 (39-117) U/L Total Protein 6.6 (6.5-8.0) g/dL Albumin 4.0 (3.5-5.0) g/dL Urine Color Urine Appearance Urine pH (5.0-9.0) Ur Specific [place] (1.005-1.025) Urine Protein (Neg-Trace) mg/dL Urine Glucose (UA) (Negative) mg/dL Urine Ketones (Negative) mg/dL Urine Blood (Negative) Urine Nitrite (Negative) Ur Leukocyte Esterase (Negative) COVID-19 (DAVID) Negative (Negative) COVID-19 Clin Com See Note 10/12/22 Range/Units 07:36 WBC (4.8-10.8) X10*3/uL RBC (4.60-5.80) X10*6/uL Hgb (14.0-18.0) g/dl Hct (42.0-52.0) % MCV (80.0-98.0) fL MCH (27.0-33.0) pg MCHC (31.0-36.0) g/dl RDW (11.0-16.0) % Plt Count (160-400) X10*3/uL MPV (9.4-12.4) fL Immature Gran % (Auto) (0.0-0.4) % Neut % (Auto) (45-73) % Lymph % (Auto) (20-40) % [place] % (Auto) (2-11) % Eos % (Auto) (0-4) % Baso % (Auto) (0-2) % Lymph # (Auto) (1.2-4.9) X10*3/uL [place] # (Auto) (0.1-1.2) X10*3/uL Eos # (Auto) (0.0-0.4) X10*3/uL Baso # (Auto) (0.0-0.2) X10*3/uL Abs Immat Gran (auto) (0.00-0.03) X10*3/uL Absolute Neuts (auto) (2.0-8.3) x10*3/uL Absolute Nucleated RBC (0.0-0.012) X10*3/uL Nucleated RBC % (auto) (0.0-0.2) /100WBC Sodium (135-145) mmol/L Potassium (3.3-5.1) mmol/L Chloride (96-108) mmol/L Carbon Dioxide (22-29) mmol/L Anion Gap (12-20) BUN (9-16) mg/dL Creatinine (0.5-1.4) mg/dL Estim Creat Clear Calc Estimated GFR Random Glucose (60-115) mg/dL Calcium (8.4-10.2) mg/dL Total Bilirubin (0.0-1.0) mg/dL AST (5-37) U/L ALT (0-40) U/L Alkaline Phosphatase (39-117) U/L Total Protein (6.5-8.0) g/dL Albumin (3.5-5.0) g/dL Urine Color Yellow Urine Appearance Clear Urine pH 6.0 (5.0-9.0) Ur Specific [place] 1.010 (1.005-1.025) Urine Protein Negative (Neg-Trace) mg/dL Urine Glucose (UA) Negative (Negative) mg/dL Urine Ketones Negative (Negative) mg/dL Urine Blood Negative (Negative) Urine Nitrite Negative (Negative) Ur Leukocyte Esterase Negative (Negative) COVID-19 (DAVID) (Negative) COVID-19 Clin Com Independent Interpretation I performed an independent interpretation of an: EKG Interpretation: 0711: Sinus bradycardia, HR-47, no STEMI, MO/QRS/QTC is within normal limits. External Record Review External record reviewed: Outpatient record and Prior outpatient labs Chronic Conditions Patient?s care impacted by: Hypertension Discharge Plan Discharge Clinical Impression: Heart palpitations Patient Disposition: Home, Self-Care Instructions: Heart Palpitations (ED) Additional Instructions: 1. Resume all home medications except reduce the dosage of metoprolol tartrate, specifically I recommend taking 1 daily instead of twice a day. 2. Call the office of your table cover folder today to set up an appointment for re- evaluation and further outpatient management and also communicate my current recommendations regarding your metoprolol tartrate. 3. Also recommend that you call the office of your primary care provider to schedule an appointment for re-evaluation Return to the ER for any worsening symptoms. Prescriptions: No Action triamcinolone acetonide 0.5 % cream 1 appl topical BID aspirin 81 mg Tablet,Delayed Release (Dr/Ec) 81 mg PO DAILY metoprolol tartrate 25 mg Tablet 25 mg PO BID hmogodtxfx-wkdhhxynttmih-ywha [Fioricet] 50-300-40 mg capsule 1 cap PO Q6H PRN (Reason: headache) Qty: 20 0RF sucralfate 1 gram tablet 1 g PO TID Qty: 90 0RF lisinopril 30 mg tablet 30 mg PO DAILY Qty: 14 0RF peg-electrolyte soln 420 gram recon soln 240 ml PO Q10M Qty: 4000 0RF Rx Instructions: until fecal effluent is clear; pantoprazole 40 mg tablet,delayed release (DR/EC) 40 mg PO DAILY atorvastatin 40 mg tablet 40 mg PO DAILY cetirizine 10 mg tablet 10 mg PO DAILY PRN (Reason: congestion) gabapentin 300 mg capsule 300 mg PO BID Referrals: Nilsa Sexton MD [Primary Care Provider] - (Patient with complaints of palpitations, complete workup negative for infection/anemia/electrolyte abno rmality and no ectopic beats noted on EKG but noted to be bradycardic. Recommended daily metoprolol tartrate instead of b.i.d..) David Crain MD [Physician] - (Patient with complaints of p alpitations, complete workup negative for infection/anemia/electrolyte abnormality and no ectopic beats noted on EKG but noted to be bradycardic. Recommended daily metoprolol tartrate instead of b.i.d.)
[2022-10-12 07:43] LABS: Appearance Urine Clear; Color Urine Yellow; Glucose Urine UA Negative (Negative); Leukocyte Esterase Urine Negative (Negative); Nitrite Urine Negative (Negative); Urine Blood Negative (Negative); Urine Ketones Negative (Negative); Urine Protein Negative (Neg-Trace)
[2022-10-12 07:44] LABS: Alanine Aminotransferase 33 U/L (0-40); Alkaline Phosphatase 63 U/L (39-117); Anion Gap 13 (12-20); Aspartate Amino Transferase 23 U/L (5-37); Bilirubin Total 0.5 mg/dL (0.0-1.0); Blood Urea Nitrogen 12 mg/dL (9-16); COVID-19 Test Negative (Negative); Calcium 8.8 mg/dL (8.4-10.2); Carbon Dioxide 27 mmol/L (22-29); Chloride 105 mmol/L (96-108); Creatinine Clr Calc Pharmacy 110.8; Estimated Glomerular Filt Rate > 60; Glucose Random 103 mg/dL (60-115); IDNOW Serial# BCCEAD1C; Potassium 4.6 mmol/L (3.3-5.1); Sodium 140 mmol/L (135-145); Total Protein 6.6 g/dL (6.5-8.0)
== END 2022-10-12 08:56 | disposition home or self-care (01) ==
PROVIDERS: Emergency Provider Student in an Organized Health Care Education/Training Program; PCP Internal Medicine
DX: I49.9 Cardiac arrhythmia, unspecified (principal); R00.2 Palpitations; Z20.822 Contact with and (suspected) exposure to COVID-19; Z20.828 Contact with and (suspected) exposure to other viral communicable diseases; Z79.899 Other long term (current) drug therapy
CPT/HCPCS: 80053; 81003; 85025; 87635; 93005; 99283; 99284

== ENCOUNTER 2022-10-23 12:28 | Outpatient (REF) | payer OTHER, SELFPAY ==
--- NOTE | ~2022-10-23 | CT_ITS ---
EXAMINATION: CT ABDOMEN AND PELVIS WITH CONTRAST CLINICAL INFORMATION: Abdominal pain. COMPARISON: Previous CT scans, most recent Aug 2021. TECHNIQUE: Multidetector volumetric images were obtained from the superior aspect of the liver through the pubic symphysis following administration 85 mL of Omnipaque 350 intravenous contrast. Sagittal and coronal reformatted images were obtained on the technologist's workstation. Oral contrast: Yes This CT examination was performed using dose optimization techniques as appropriate, variously including the following: *Automated exposure control *Adjustment of mA and/or kV according to patient size (this includes techniques or standardized protocols for targeted exams where dose is matched to indication/reason for exam; i.e. extremities or head) *Use of iterative reconstruction technique DLP: 651 mGy-cm FINDINGS: LUNG BASES: Stable RLL nodules. LIVER, GALLBLADDER, AND BILIARY TREE: The liver is normal in size, shape, and attenuation. No focal hepatic lesion or biliary ductal dilatation is present. The gallbladder is unremarkable with no evidence of radiopaque gallstones, gallbladder wall thickening, or obvious pericholecystic inflammatory changes. PANCREAS: Nodular contour of the head of the pancreas stable from multiple prior exams and therefore probably benign. SPLEEN: Unremarkable ADRENAL GLANDS: Unremarkable KIDNEYS AND URETERS: The kidneys are normal in size, shape, and attenuation. No hydronephrosis, hydroureter, or calculi seen. No perinephric stranding. BLADDER: Unremarkable GASTROINTESTINAL TRACT: The small and large bowel are unremarkable. The appendix is unremarkable. ABDOMINAL WALL: No significant hernia is appreciated. LYMPH NODES: Normal VASCULAR: Unremarkable PELVIC VISCERA: Unremarkable OSSEOUS STRUCTURES: Degenerative change of the spine and hip joints. CT/CT abdomen pelvis w IV con IMPRESSION: No acute findings. Nodular contour of the head of the pancreas stable from multiple prior exams and therefore probably benign. Fleischner guidelines were followed.
[2022-10-23] MEDS: iohexoL 350 MG/ML 100 ML INFUS..BTL IV (15:27)
[2022-10-23] MEDS: Barium Sulfate Oral (Berry) 450 ML ORAL.SUSP 900 ML PO (15:28)
== END 2022-10-23 12:29 | disposition home or self-care (01) ==
LOC: HO.CT 12:28
PROVIDERS: PCP Internal Medicine; Visit Provider Emergency Medicine
DX: R10.13 Epigastric pain (principal)
CPT/HCPCS: 74177; Q9967

== ENCOUNTER 2022-10-27 11:44 | Day surgery (SDC) | payer OTHER, SELFPAY ==
[2022-10-26 08:44] VITALS: BMI 36.2
--- NOTE | 2022-10-26 13:10 | P.CONAN_ITS ---
HPI - Anesthesia Eval Consult details Narrative: 57yo M for Colonoscopy Cardiac cleared 03/2022, but [facility] with palpitations 10/12/22. Pt with Cardiac televisit scheduled for 10/27/22 at 8am. [facility] Active Problems Active Problems: All Active Problems (Updated 10/13/22 @ 00:01 by Background Daemon) BMI 37.0-37.9, adult (Acute) Dizziness (Acute) Lacunar infarction (Chronic) BMI 36.0-36.9,adult (Acute) Peripheral vascular disease (Acute) Essential hypertension (Acute) PAD (peripheral artery disease) (Acute) Palpitations (Acute) GERD (gastroesophageal reflux disease) (Acute) Back pain (Acute) Ulcerative colitis (Acute) Psoriasis (Acute) Sleep apnea with use of continuous positive airway pressure (CPAP) (Acute) Hypertension (Acute) Obesity (Acute) Past Medical History Medical History (Updated 10/13/22 @ 00:01 by Background Daemon) Back pain COVID-19 GERD (gastroesophageal reflux disease) Hypertension Lacunar stroke Migraines Obesity On beta philip at home Psoriasis Sleep apnea with use of continuous positive airway pressure (CPAP) Ulcerative colitis Family History Family History Father No problems noted. Mother No problems noted. Sister No problems noted. Sister No problems noted. Sister Kidney replaced by transplant Brother No problems noted. Brother No problems noted. Brother No problems noted. Brother Diabetes Son No problems noted. Daughter No problems noted. Surgical History Surgical History (Updated 10/22/22 @ 15:15 by Camille Owens RN) History of esophagogastroduodenoscopy (EGD) Hx of colonoscopy Social History Social History Household Members: None Housing: Apartment Are you a primary career development coordinator to a significant other at home: No Do you presently have visiting nurse or other home services: No Alcohol intake: former Patient Tobacco Use Status: Never used Tobacco service: No Current occupational status: employed Current occupation: [employer] Allergies Allergy/AdvReac Type Severity Reaction Status Date / Time No Known Allergies Allergy Verified 07/18/22 12:41 [No Known Allergies*] Home Medications Medication Instructions Recorded Confirmed Last Taken Type aspirin 81 mg tablet,delayed 81 mg PO DAILY 12/20/20 10/23/22 10/26/22 History release metoprolol tartrate 25 mg tablet 25 mg PO BID 12/20/20 10/23/22 10/27/22 History pantoprazole 40 mg tablet,delayed 40 mg PO DAILY 05/22/21 10/23/22 10/26/22 History release atorvastatin 40 mg tablet 40 mg PO DAILY 03/06/22 10/23/22 10/26/22 History gabapentin 300 mg capsule 300 mg PO BID 03/06/22 10/23/22 10/27/22 History Exam Exam Date and Time: October 26, 2022 1310 Height,Weight and Vital Signs: Height 5 ft 8 in Weight 108.2 kg Narrative Narrative: EKG 09/2022 Vent. Rate : 047 BPM ? ? Atrial Rate : 047 BPM ?? P-R Int : 166 ms? QRS Dur : 096 ms ? ? QT Int : 426 ms ? ? ? P-R-T Axes : 034 001 024 degrees ?? QTc Int : 377 ms ? Sinus bradycardia Incomplete right bundle branch block Minimal voltage criteria for LVH, may be normal variant ( R in aVL ) Inferior infarct , age undetermined Abnormal ECG No significant changes when compared with the previous EKG? of 18 jul 2022 ECHO 03/2022 1. Nml LV function 2. Overall LV systolic function nml with EF 60-65% 3. Diastlic filling pattern normal 4. No change from 2019 Assessment and Plan Assessment Anesthesia Assessment: Chart Reviewed
[2022-10-27 11:47] VITALS: BP 165/91; PULSE 51; RESP 18; TEMP 36.9; O2SAT 97
[2022-10-27] MEDS: Lactated Ringers 1,000 ML 100 ML IVCONT (12:08)
--- NOTE | 2022-10-27 13:57 | MHC.SHP ---
Pre-Procedural Eval Section A Date of Service: 10/27/22 The patient is an INPATIENT: No The History & Physical has been completed within 30 days and I have reviewed it.: Yes Section B Chief Complaint: Noninfective gastroenteritis and colitis,fam hx Allergies: Allergies Allergy/AdvReac Type Severity Reaction Status Date / Time No Known Allergies Allergy Verified 07/18/22 12:41 [No Known Allergies*] Plan Diagnosis/Plan: Unchanged I have reviewed the history and physical and performed a pertinent physical examination on my patient. No changes have occurred unless specified. Time Spent With Patient Time: Total time managing care of this patient today ____ minutes.
--- NOTE | 2022-10-27 13:58 | P.OP_ITS ---
Operative Note Operative Note Date of Service: 10/27/22 Narrative: Operative Information Procedure Description: Colonoscopy Indication: hx of colitis and abdominal pain Anesthesia: MAC COLONOSCOPY Instrument: Olympus variable stiffness ADULT scope 190L Colonoscopy Monitoring: Vital signs and clinical assessment, continuous EKG monitoring, Pulse oximetry, Carbon Dioxide monitoring and blood pressure monitoring were done throughout the procedure. Colon withdrawal time was 14 minutes. Procedure: The patient was placed in the left lateral decubitis position and pre-procedure medications were administered. After a digital rectal examination of the ano-rectum, the video colonoscope was inserted into the rectum and advanced through the colon to the cecum/TI. The colonoscope was slowly withdrawn in a retrograde panoramic fashion and the colon mucosa was carefully examined including a retroflexed view of the rectum. Findings and interventions are described below. Procedure Difficulty: easy Findings: Terminal Ileum-normal, bx taken Bx taken from right and left colon in separate jars Cecum:normal Ascending Colon: normal Transverse Colon -normal Descending Colon:normal Sigmoid Colon: normal Rectum: Retroflexion with 2 internal hemorrhoids, grade 2 Anorectum - normal Colon preparation: Hollywood Bowel Preparation Scale Right colon; 2 Transverse colon: 2 Left colon; 2 (0 = Unprepared colon segment with mucosa not seen due to solid stool that cannot be cleared. 1 = Portion of mucosa of the colon segment seen, but other areas of the colon segment not well seen due to staining, residual stool and/or opaque liquid. 2 = Minor amount of residual staining, small fragments of stool and/or opaque liquid, but mucosa of colon segment seen well. 3 = Entire mucosa of colon segment seen well with no residual staining, small fragments of stool or opaque liquid) Impression and Post Procedure Diagnosis: internal hemorrhoids no evidence of active colitis Plan: High fiber diet leaflet Avoid straining at stool, epsom salts and sitz bath, anusol supps or cream Repeat Colonoscopy in 10 years or earlier if clinically indicated he was asking for an upper as he has had more indigestion with nausea, will arrange at future date Above findings were reviewed with the patient and relevant handouts were provided if indicated.
[2022-10-27 14:46] VITALS: BP 139/83; PULSE 69; RESP 16; TEMP 36.3; O2SAT 98
[2022-10-27 15:01] VITALS: BP 144/72; PULSE 53; RESP 16; TEMP 37.1; O2SAT 97
== END 2022-10-27 15:34 | disposition home or self-care (01) ==
PROVIDERS: PCP Internal Medicine; Visit Provider Internal Medicine Gastroenterology
PROC: 0DJD8ZZ Inspection of Lower Intestinal Tract, Via Natural or Artificial Opening Endoscopic (ICD-10-PCS; CPT 45378; principal; 2022-10-27 14:00)
DX: R10.9 Unspecified abdominal pain (principal); Z80.0 Family history of malignant neoplasm of digestive organs; Z86.010 Personal history of colon polyps; K59.00 Constipation, unspecified; K21.9 Gastro-esophageal reflux disease without esophagitis; Z87.19 Personal history of other diseases of the digestive system; K64.1 Second degree hemorrhoids; L40.9 Psoriasis, unspecified; G47.33 Obstructive sleep apnea (adult) (pediatric); Z79.899 Other long term (current) drug therapy; Z99.89 Dependence on other enabling machines and devices
CPT/HCPCS: 45380; 88305

== ENCOUNTER → 2022-11-16 13:30 | Outpatient (BNVA) | payer OTHER, SELFPAY | PROVIDERS: PCP Internal Medicine; Visit Provider Internal Medicine Gastroenterology | DX: R43.2 Parageusia (principal); R11.0 Nausea; K59.00 Constipation, unspecified | CPT/HCPCS: 99212 ==

== ENCOUNTER 2022-12-10 07:13 | Day surgery (SDC) | payer OTHER, SELFPAY ==
--- NOTE | 2022-12-09 12:38 | HO.ANESPROP2 ---
Documented by User: Meka De Jesus NP 12/09/22 12:42 HPI - Anesthesia Eval Consult details Narrative: 57yo M for Upper Endoscopy s/p colo 11/20/22 with MAC (Cardiac optimized prior) [facility] [place] Active Problems Active Problems: All Active Problems (Updated 10/13/22 @ 00:01 by Chayo Peña) BMI 37.0-37.9, adult (Acute) Dizziness (Acute) Lacunar infarction (Chronic) BMI 36.0-36.9,adult (Acute) Peripheral vascular disease (Acute) Essential hypertension (Acute) PAD (peripheral artery disease) (Acute) Palpitations (Acute) GERD (gastroesophageal reflux disease) (Acute) Back pain (Acute) Ulcerative colitis (Acute) Psoriasis (Acute) Sleep apnea with use of continuous positive airway pressure (CPAP) (Acute) Hypertension (Acute) Obesity (Acute) Past Medical History Medical History Back pain COVID-19 GERD (gastroesophageal reflux disease) Hypertension Lacunar stroke Migraines Obesity On beta philip at home Psoriasis Sleep apnea with use of continuous positive airway pressure (CPAP) Ulcerative colitis Family History Family History Father No problems noted. Mother No problems noted. Sister No problems noted. Sister No problems noted. Sister Kidney replaced by transplant Brother No problems noted. Brother No problems noted. Brother No problems noted. Brother Diabetes Son No problems noted. Daughter No problems noted. Surgical History Surgical History (Updated 12/08/22 @ 14:37 by Aneta Barajas RN) History of esophagogastroduodenoscopy (EGD) Hx of colonoscopy Social History Social History Household Members: None Housing: Apartment Are you a primary ocular care aide to a significant other at home: No Do you presently have visiting nurse or other home services: No Alcohol intake: former Patient Tobacco Use Status: Never used Tobacco service: No Current occupational status: employed Current occupation: [employer] Allergies Allergy/AdvReac Type Severity Reaction Status Date / Time No Known Allergies Allergy Verified 11/16/22 13:47 [No Known Allergies*] Home Medications Medication Instructions Recorded Confirmed Last Taken Type aspirin 81 mg tablet,delayed 81 mg PO DAILY 12/20/20 10/23/22 10/26/22 History release metoprolol tartrate 25 mg tablet 25 mg PO BID 12/20/20 10/23/22 10/27/22 History atorvastatin 40 mg tablet 40 mg PO DAILY 03/06/22 10/23/22 10/26/22 History gabapentin 300 mg capsule 300 mg PO BID 03/06/22 10/23/22 10/27/22 History Exam Exam Date and Time: December 09, 2022 1238 Pertinent Lab Results Pertinent Lab Results: Laboratory Tests 10/12/22 10/12/22 07:24 07:24 WBC 5.4 Hgb 15.4 Hct 45.8 Plt Count 190 Sodium 140 Potassium 4.6 D Chloride 105 Carbon Dioxide 27 BUN 12 Creatinine 0.87 Narrative Narrative: EKG 09/2022 Vent. Rate : 047 BPM ? ? Atrial Rate : 047 BPM ?? P-R Int : 166 ms? QRS Dur : 096 ms ? ? QT Int : 426 ms ? ? ? P-R-T Axes : 034 001 024 degrees ?? QTc Int : 377 ms ? Sinus bradycardia Incomplete right bundle branch block Minimal voltage criteria for LVH, may be normal variant ( R in aVL ) Inferior infarct , age undetermined Abnormal ECG No significant changes when compared with the previous EKG? of 18 jul 2022 Assessment and Plan Assessment Anesthesia Assessment: Chart Reviewed Documented by User: Walt Perez MD 12/10/22 18:15 [facility] Past Medical History Medical History Back pain COVID-19 GERD (gastroesophageal reflux disease) Hypertension Lacunar stroke Migraines Obesity On beta philip at home Psoriasis Sleep apnea with use of continuous positive airway pressure (CPAP) Ulcerative colitis Functional capacity: independent ambulation Family History Family History Father No problems noted. Mother No problems noted. Sister No problems noted. Sister No problems noted. Sister Kidney replaced by transplant Brother No problems noted. Brother No problems noted. Brother No problems noted. Brother Diabetes Son No problems noted. Daughter No problems noted. Family history of problems with anesthesia: No Surgical History Surgical History (Updated 12/08/22 @ 14:37 by Aneta Barajas RN) History of esophagogastroduodenoscopy (EGD) Hx of colonoscopy History of Problems with Anesthesia: No Social History Social History Household Members: None Housing: Apartment Are you a primary ocular care aide to a significant other at home: No Do you presently have visiting nurse or other home services: No Alcohol intake: former Patient Tobacco Use Status: Never used Tobacco service: No Current occupational status: employed Current occupation: [employer] Allergies Allergy/AdvReac Type Severity Reaction Status Date / Time No Known Allergies Allergy Verified 11/16/22 13:47 [No Known Allergies*] Home Medications Medication Instructions Recorded Confirmed Last Taken Type aspirin 81 mg tablet,delayed 81 mg PO DAILY 12/20/20 10/23/22 10/26/22 History release metoprolol tartrate 25 mg tablet 25 mg PO BID 12/20/20 10/23/22 10/27/22 History atorvastatin 40 mg tablet 40 mg PO DAILY 03/06/22 10/23/22 10/26/22 History gabapentin 300 mg capsule 300 mg PO BID 03/06/22 10/23/22 10/27/22 History Exam Airway Mallampati Class: III TM Dist: >3cm Neck ROM: Full Loose/Missing/Broken Teeth: Yes Assessment and Plan Assessment Anesthesia Assessment: Anesthesia Plan Discussed Final Anesthetic Review Family History of Problems with Anesthesia: No History of Problems with Anesthesia: No NPO: Yes ASA Class: III Final Preanesthetic Review: Meds/Allgs Chart Reviewed, Consent Obtained/Reviewed and Anes Risks/Benef Reviewed Patient Risk: Intermediate Procedure Risk: Intermediate Anesthetic Plan Anesthetic Plan: MAC: and Agree w/ Assess. and Plan Disposition: Standard PACU
[2022-12-10 08:48] VITALS: BP 127/82; PULSE 50; RESP 16; TEMP 36.2; O2SAT 97; BMI 35.7
--- NOTE | 2022-12-10 09:56 | MHC.SHP ---
Pre-Procedural Eval Section A Date of Service: 12/10/22 The patient is an INPATIENT: No The History & Physical has been completed within 30 days and I have reviewed it.: Yes Section B Chief Complaint: reflux disease Allergies: Allergies Allergy/AdvReac Type Severity Reaction Status Date / Time No Known Allergies Allergy Verified 11/16/22 13:47 [No Known Allergies*] Plan Diagnosis/Plan: Unchanged I have reviewed the history and physical and performed a pertinent physical examination on my patient. No changes have occurred unless specified. Time Spent With Patient Time: Total time managing care of this patient today ____ minutes.
--- NOTE | 2022-12-10 09:57 | W.PM.OPN ---
Operative Note Operative Note Date of Service: 12/10/22 Narrative: Procedure Description: EGD Indication: Bitter taste and dysgeusia, nausea Anesthesia: MAC FLEXIBLE TRANSORAL UPPER GASTROINTESTINAL ENDOSCOPY UPPER ENDOSCOPY Consent: Indications for the procedure and potential complications of bleeding, perforation, reaction to medications and missed diagnosis were discussed with the patient and informed consent was obtained. Instrument: Olympus GIF H 190 J mid size upper endoscope Monitoring: Vital signs and clinical assessment, continuous EKG monitoring, Pulse oximetry, Carbon Dioxide monitoring and blood pressure monitoring were done throughout the procedure. Procedure: The patient was placed in the left lateral decubitis position and pre-procedure medications were administered and a bite block was placed. The endoscope was inserted into the mouth and advanced under direct vision to the third part of duodenum. A careful inspection was made as the upper endoscope was withdrawn including a retroflexed examination of the proximal stomach; Findings and interventions are described below. Findings: Larynx:normal Esophagus: GE junction at 40? cm, diaphragm hiatus at 40 cm, erythema at GEJ consistent with esophagitis, bx taken also from proximal and distal esophagus Stomach: Patchy erythema with erosions in the antrum. Biopsies were obtained. Grade 2 flap valve on retroflexed examination of the cardia. Duodenum: duodenitis in bulb and second part, bx taken Intervention: Biopsies as noted above Impression/Findings: duodenitis erosive gastritis esophagitis PLAN: check PPi compliance--if taking then consider changing prep changes above could be due to aspirin use if h pylori pos then treat
[2022-12-10 10:34] VITALS: BP 119/70; PULSE 65; RESP 16; TEMP 36.6; O2SAT 96
[2022-12-10 10:49] VITALS: BP 121/79; PULSE 70; RESP 20; TEMP 36.2; O2SAT 96
[2022-12-10 11:04] VITALS: BP 129/77; PULSE 61; RESP 18; TEMP 37; O2SAT 97
== END 2022-12-10 11:24 | disposition home or self-care (01) ==
PROVIDERS: PCP Internal Medicine; Visit Provider Internal Medicine Gastroenterology
PROC: 0DJ08ZZ Inspection of Upper Intestinal Tract, Via Natural or Artificial Opening Endoscopic (ICD-10-PCS; CPT 43235; principal; 2022-12-10 10:00)
DX: K21.9 Gastro-esophageal reflux disease without esophagitis (principal); R43.2 Parageusia; R11.0 Nausea; K29.60 Other gastritis without bleeding; K20.80 Other esophagitis without bleeding; K44.9 Diaphragmatic hernia without obstruction or gangrene; I63.81 Other cerebral infarction due to occlusion or stenosis of small artery; I10 Essential (primary) hypertension; I73.9 Peripheral vascular disease, unspecified; G47.33 Obstructive sleep apnea (adult) (pediatric); E66.9 Obesity, unspecified; Z68.35 Body mass index [BMI] 35.0-35.9, adult; Z79.82 Long term (current) use of aspirin; Z79.899 Other long term (current) drug therapy; Z99.89 Dependence on other enabling machines and devices; Z86.16 Personal history of COVID-19; Z80.0 Family history of malignant neoplasm of digestive organs
CPT/HCPCS: 43239; 88305; 88342

== ENCOUNTER 2022-12-30 12:50 | Outpatient (REF) | payer OTHER, SELFPAY ==
--- NOTE | ~2022-12-30 | XR_ITS ---
EXAMINATION: XR foot LT min 3V, XR foot RT min 3V CLINICAL INFORMATION: Tarsal tunnel syndrome COMPARISON: None TECHNIQUE: 3 views of the bilateral feet FINDINGS: RIGHT FOOT: No acute fracture or dislocation. Well corticated osseous fragment along the base of the first proximal phalanx may reflect sequelae of remote trauma. Pes cavus. Mild degenerative changes of the foot with degenerative spurring of the dorsal midfoot, Achilles tendon enthesopathy and plantar calcaneal spurring with degenerative spurring of the first MTP joint. No cortical erosion. No joint effusion. Soft tissues are unremarkable. LEFT FOOT: No fracture or dislocation. Pes cavus. Mild degenerative changes of the foot with quadriceps tendon enthesopathy, plantar calcaneal spurring and mild degenerative changes of the first MTP joint. Os peroneum. No cortical erosion. No joint effusion. Soft tissues are unremarkable. XR/XR foot LT min 3V IMPRESSION: Pes cavus with mild bilateral degenerative changes of the feet. Well-corticated osseous fragment along the base of the first right proximal phalanx may reflect sequelae of remote trauma. No acute osseous abnormality.
--- NOTE | ~2022-12-30 | XR_ITS ---
EXAMINATION: XR foot LT min 3V, XR foot RT min 3V CLINICAL INFORMATION: Tarsal tunnel syndrome COMPARISON: None TECHNIQUE: 3 views of the bilateral feet FINDINGS: RIGHT FOOT: No acute fracture or dislocation. Well corticated osseous fragment along the base of the first proximal phalanx may reflect sequelae of remote trauma. Pes cavus. Mild degenerative changes of the foot with degenerative spurring of the dorsal midfoot, Achilles tendon enthesopathy and plantar calcaneal spurring with degenerative spurring of the first MTP joint. No cortical erosion. No joint effusion. Soft tissues are unremarkable. LEFT FOOT: No fracture or dislocation. Pes cavus. Mild degenerative changes of the foot with quadriceps tendon enthesopathy, plantar calcaneal spurring and mild degenerative changes of the first MTP joint. Os peroneum. No cortical erosion. No joint effusion. Soft tissues are unremarkable. XR/XR foot RT min 3V IMPRESSION: Pes cavus with mild bilateral degenerative changes of the feet. Well-corticated osseous fragment along the base of the first right proximal phalanx may reflect sequelae of remote trauma. No acute osseous abnormality.
== END 2022-12-30 12:51 | disposition home or self-care (01) ==
LOC: HO.XRAY 12:50
PROVIDERS: Visit Provider Psychiatry & Neurology Neurology
DX: G57.53 Tarsal tunnel syndrome, bilateral lower limbs (principal)
CPT/HCPCS: 73630

== ENCOUNTER 2023-02-12 14:38 | Outpatient (AMB) | payer OTHER, SELFPAY ==
--- NOTE | 2023-02-12 14:42 | A.OFFVIS_ITS ---
Intake Vital Signs 02/12/23 14:43 Height 5 ft 8 in Weight 238 lb BMI 36.2 BP 144/82 H Blood Pressure Location Lt brachial Position Sitting Pulse 63 Pulse Source Pulse Oximeter Pulse Oximetry (%) 97 Oxygen Delivery Method Room Air Intake Visit Reasons: 12/01/22 Letter unable lvm-ENP-FELICIA Intake Note: Patient presents for FELICIA evaluation. Patient states I need new face mask, they stated I need to talk to provider change it. Allergies No Known Allergies [No Known Allergies*] Allergy (Verified 02/12/23 14:46) HPI HPI Comments History of Present Illness Details 57 y/o male patient presents for new in-person visit to manage sleep apnea. Pt was diagnosed with severe degree of sleep apnea, started CPAP at [id number]. The PSG sleep study result was significant for severe degree of sleep apnea. The AHI was 42/hr, oxygen etta was 82% and excessive snoring Pt reports that he uses nasal mask, it keeps falling off at night, he requested to switch full face mask. Pt was told that he needs to follow up by sleep medicine and and new prescription. He uses CPAP every night, but sometimes forgets to put on. He endorses morning headache, right side pounding headache with light sensitivity with aura. Denies dizziness, nausea or vomiting with the headache. He wakes up with headache, uses Tylenol, or Excedrin 3-4 times a week, resting in the dark room helps to relieve the headache. It can last couple of hours or all day. [facility] Medical History (Updated 02/12/23 @ 15:22 by Calin Urias CNP) Back pain COVID-19 GERD (gastroesophageal reflux disease) Hypertension Lacunar stroke Migraines Obesity On beta philip at home Psoriasis Sleep apnea with use of continuous positive airway pressure (CPAP) Ulcerative colitis Surgical History History of esophagogastroduodenoscopy (EGD) Hx of colonoscopy Family History Father No problems noted. Mother No problems noted. Sister No problems noted. Sister No problems noted. Sister Kidney replaced by transplant Brother No problems noted. Brother No problems noted. Brother No problems noted. Brother Diabetes Son No problems noted. Daughter No problems noted. Social History Household Members: None Housing: Apartment Are you a primary healthcare economics manager to a significant other at home: No Do you presently have visiting nurse or other home services: No Alcohol intake: former Patient Tobacco Use Status: Never used Tobacco service: No Current occupational status: employed Current occupation: [employer] ENT Reports Normal hearing present Neuro Reports Normal hearing present and Reports Abnormal speech present Physical Exam Vital Signs: Last Vital Signs Pulse 63 02/12/23 14:43 BP 144/82 H 02/12/23 14:43 Pulse Ox 97 02/12/23 14:43 Oxygen Delivery Method Room Air 02/12/23 14:43 BMI result Body Mass Index 36.2 Const General: cooperative Nutritional Appearance: obese Orientation/consciousness: patient oriented x3 Neck Neck: Yes full ROM and Yes supple Resp Effort & Inspection: normal respiratory effort and able to speak in complete sentences Neuro General: patient oriented x3, gait normal, moves all extremities and no focal motor deficits Cranial nerves: Yes Bilaterally intact EOM present, Yes Normal facial strength present, Yes Midline tongue present, Yes Symmetric palate elevation present, Yes Normal hearing present, Yes Ability to bilaterally rotate head present and Yes Ability to bilaterally elevate shoulders present Cognition (Neuro): normal cognition Speech: Abnormal speech present Gait exam (Neuro): Normal gait present Motor exam (neuro): 5/5 motor strength present throughout, Pronator motor function not present and no tremor noted Deep tendon reflexes (DTR's): Right brachioradialis reflex intensity grade: 1+, Left brachioradialis reflex intensity grade: 1+, Right patellar reflex intensity grade: 2+ and Left patellar reflex intensity grade: 2+ Psych Appearance: grossly normal Mental Status: mental status grossly normal Speech and movement: Normal speech and movement present Affect: normal affect Attitude: cooperative Assessment & Plan Assessment & Plan (1) Sleep apnea with use of continuous positive airway pressure (CPAP): Code(s): G47.30 - Sleep apnea, unspecified (2) Migraine headache with aura: Code(s): G43.109 - Migraine with aura, not intractable, without status migrainosus Plan The CPAP compliance is not available at this time. Request the CPAP compliance from [employer]. Continue to use CPAP at [id number], stressed compliance, use nightly and more than 4 hours. Advised patient to start magnesium 400 mg qHS and vitamin B2 400 mg daily for migraine prevention. Advised patient to monitor the migraine frequency and intensity. Medications: New magnesium oxide 400 mg PO DAILY 30 tabs 3RF 30 days riboflavin (vitamin B2) 400 mg PO DAILY 30 tabs 3RF 30 days Coding Level of Care Code New Pt Level 4 (49305) Diagnoses Sleep apnea with use of continuous positive airway pressure (CPAP) G47.30 Migraine headache with aura G43.109
[2023-02-12 14:43] VITALS: BP 144/82; PULSE 63; O2SAT 97; BMI 36.2
== END 2023-02-12 15:27 | disposition home or self-care (01) ==
PROVIDERS: Visit Provider Nurse Practitioner Family
DX: G47.30 Sleep apnea, unspecified (principal); G43.109 Migraine with aura, not intractable, without status migrainosus
CPT/HCPCS: 99204

== ENCOUNTER → 2023-02-12 14:38 | Outpatient (BNVA) | payer OTHER, SELFPAY | PROVIDERS: Visit Provider Nurse Practitioner Family | DX: G47.30 Sleep apnea, unspecified (principal); G43.109 Migraine with aura, not intractable, without status migrainosus; Z99.89 Dependence on other enabling machines and devices | CPT/HCPCS: 99202 ==

== ENCOUNTER 2023-12-09 15:51 | Outpatient (REF) | payer OTHER, SELFPAY ==
--- NOTE | ~2023-12-09 | US_ITS ---
EXAMINATION: US VENOUS ULTRASOUND WITH DOPPLER LOWER EXTREMITY, BILATERAL CLINICAL INFORMATION: Pain COMPARISON: None TECHNIQUE: Ultrasound of the deep veins is performed from the hip to the calf with compression sonography and color and pulse Doppler assessment. Spectral analysis with color-flow imaging is performed. FINDINGS: RIGHT: There is normal venous compression and respiratory variation and augmented flow. The visualized common femoral vein, superficial femoral vein, profunda femoral vein, popliteal vein, and the trifurcation region shows no evidence of deep venous thrombosis. There is no significant popliteal fossa cyst. LEFT: There is normal venous compression and respiratory variation and augmented flow. The visualized common femoral vein, superficial femoral vein, profunda femoral vein, popliteal vein, and the trifurcation region shows no evidence of deep venous thrombosis. There is no significant popliteal fossa cyst. Bilateral inguinal lymph nodes with prominent fatty anjali likely reactive measuring up to 0.5 cm short axis on the right and 0.6 cm short axis on the left. US/US venous duplex LE BI IMPRESSION: No DVT demonstrated in the bilateral lower extremity. Bilateral inguinal lymph nodes with prominent fatty anjali likely reactive measuring up to 0.5 cm short axis on the right and 0.6 cm short axis on the left.
== END 2023-12-09 15:52 | disposition home or self-care (01) ==
LOC: HO.US 15:51
PROVIDERS: PCP Internal Medicine; Visit Provider Internal Medicine
DX: R20.0 Anesthesia of skin (principal); R20.2 Paresthesia of skin
CPT/HCPCS: 93970

== ENCOUNTER 2023-12-31 08:31 | Outpatient (REF) | payer OTHER, SELFPAY ==
[2023-12-31 11:11] LABS: MANUAL DIFF FLAG NO
[2023-12-31 11:26] LABS: Basophils Percent Auto 0.2 % (0-2); Eosinophils Absolute Auto 0.3 X10*3/uL (0.0-0.4); Eosinophils Percent Auto 5.5 % (0-4); Hematocrit 44.7 % (42.0-52.0); Hemoglobin 15.1 g/dl (14.0-18.0); Imm Gran Abs Auto 0.01 X10*3/uL (0.00-0.03); Imm Gran Pct Auto 0.2 % (0.0-0.4); Lymphocytes Absolute Auto 1.8 X10*3/uL (1.2-4.9); Mean Corpuscular HGB Conc 33.8 g/dl (31.0-36.0); Mean Corpuscular Hemoglobin 29.3 pg (27.0-33.0); Mean Corpuscular Volume 86.6 fL (80.0-98.0); Mean Platelet Volume 10.3 fL (9.4-12.4); Monocytes Absolute Auto 0.7 X10*3/uL (0.1-1.2); Monocytes Percent Auto 11.7 % (2-11); Neutrophils Absolute Auto 2.9 x10*3/uL (2.0-8.3); Neutrophils Percent Auto 51.4 % (45-73); Platelet Count 194 X10*3/uL (160-400); Red Blood Count 5.16 X10*6/uL (4.60-5.80); Red Cell Distribution Width 13.9 % (11.0-16.0); White Blood Count 5.7 X10*3/uL (4.8-10.8)
[2023-12-31 11:56] LABS: Alanine Aminotransferase 49 U/L (0-40); Albumin Level 3.9 g/dL (3.5-5.0); Alkaline Phosphatase 52 U/L (39-117); Anion Gap 12 (12-20); Aspartate Amino Transferase 37 U/L (5-37); Bilirubin Direct 0.3 mg/dL (0.0-0.5); Bilirubin Total 0.7 mg/dL (0.0-1.0); Blood Urea Nitrogen 18 mg/dL (9-16); Calcium 8.9 mg/dL (8.4-10.2); Carbon Dioxide 29 mmol/L (22-29); Chloride 103 mmol/L (96-108); Cholesterol 143 mg/dL (<200); Estimated Glomerular Filt Rate > 60; Glucose Random 104 mg/dL (60-115); HDL Cholesterol 44 mg/dL (>40); LDL Cholesterol Calculated 87 mg/dL (<100); Potassium 4.2 mmol/L (3.3-5.1); Sodium 140 mmol/L (135-145); Triglycerides 64 mg/dL (<150)
[2023-12-31 12:22] LABS: Folate 8.2 ng/mL (> or = 4.0); Vitamin B12 793 pg/mL (200-900)
== END 2023-12-31 08:32 | disposition home or self-care (01) ==
LOC: HO.HHCL 08:31
PROVIDERS: Visit Provider Internal Medicine
DX: R20.0 Anesthesia of skin (principal); R20.2 Paresthesia of skin
CPT/HCPCS: 36415; 80048; 80061; 80076; 82607; 82746; 85025

== ENCOUNTER 2024-11-23 08:44 | Outpatient (REF) | payer OTHER, SELFPAY ==
--- OUTSIDE RECORDS SUMMARY | 2024-11-23 09:05 | XMS_ITS | Encounter Summary ---
Author Organization [employer] Address [address] [place] [address] Care Team Providers Care Drum Sander Name Role Phone Nilsa Sexton MD Primary Care Provide r Reason for Visit * Reason Comments Med Refill Encounter Details Date Type Department Care Team (Late Contact Info) Description 02/18/2023 Refill [facility] MEDICINE [address] [place] [address] [phone] Nilsa Sexton MD [address] [place] [address] [phone] Social History Tobacco Use Types Packs/Day Years Used Date Smoking Tobacco: Never Passive Smoke Exposure: Never Smokeless Tobacco: Never Depression Answer Date Recorded Patient Health Questionnaire-9 Score 0 11/30/2022 Depression Answer Date Recorded Patient Health Questionnaire-2 Score 0 11/30/2022 Sex and Gender Information Value Date Recorded Sex Assigned at Male 05/18/2022 10:36 AM EDT Legal Sex Male 10:36 AM EDT Gender Identity Male 05/18/2022 10:36 AM EDT Sexual Orientation Choose not to disclose 2021 10:36 AM EDT documented as of this encounter Plan of Treatment Upcoming Encounters Date Type Department Care Team (Late st Contact Info) Description 02/19/2025 9:00 AM EDT Office Visit [facility] MEDICINE [address] [place] [phone] Nilsa Sexton MD [address] [place] [address] [phone] documented as of this encounter Visit Diagnoses Not on filedocumented in this encounter Additional Health Concerns Assessment Noted Time PHQ-9 Depression Total Score: 0 12/01/19 23 3:18 PM EDT documented as of this encounter Care Teams Drum Sander Relationship Specialty Start Date End Date Nilsa Sexton MD [address] [place] [address] PCP - General Family Medicine 09/08/19 documented as of this encounter
--- OUTSIDE RECORDS SUMMARY | 2024-11-23 09:05 | XMS_ITS | Encounter Summary ---
Author Organization [employer] Address [address] [place] [address] Care Team Providers Care Brinell Tester Name Role Phone Nilsa Sexton MD Primary Care Provide r Reason for Visit * Reason Onset Date Comments Chart Prep 11/21/2024 Encounter Details Date Type Department Care Team ([facility] Contact Info) Description 11/21/2024 Telephone [facility] [address], [place] [phone] Nilsa Sexton MD [address] [place] [address] Chart Prep Social History Tobacco Use Types Packs/Day Years Used Date Smoking Tobacco: Never Passive Smoke Exposure: Never Smokeless Tobacco: Never Alcohol Use Standard Drinks/Week Comments Never 0 (1 standard drink = 0.6 oz pur e alcohol) Alcohol Answer Date Recorded Frequency of Alcohol Consumption Not on file 03/01/2024 Average Number of Drinks Not on file 024 Frequency of Binge Drinking Not on file 02/16 Score 0 03/01/2024 Depression Answer Date Recorded Patient Health Questionnaire-9 Score 0 03/01/2024 Patient Health Questionnaire-9 Score 0 03/01/2024 Last PHQ-9: Questionnaire Data Not on file 0 03/01/2024 Housing Stability Answer Date Recorded What is your housing situation today? I have anna marie rao 02/17/[address] you li ve. Do you have problems with any of the following? None of the above 02/17/2024 Food Insecurity Answer Date Recorded Within the past 12 months, y ou worried that your food would run out before you got money to buy more: Never True 02/17/2024 Within the past 12 months,th e food you bought just didn't last and you didn't have enough money to get more: Never True 07/2023 Transportation Answer Date Recorded In the past 12 months, has l ack of transportation kept you from medical appts, meetings, work or from getting things needed for daily living? No 02/17/2024 Utilities Answer Date Recorded In the past 12 months, has t he electric, gas, oil or water company threatened to shut off services in your home? No 02/17/2024 Depression Answer Date Recorded Patient Health Questionnaire-2 Score 0 03/01/2024 Internet Access Answer Date Recorded Internet Access Q1 No 03/20/2024 Internet Access Q2 I do not want or need it 08/2023 Sex and Gender Information Value Date Recorded Sex Assigned at Male 05/18/2022 10:36 AM EDT Legal Sex Male 10:36 AM EDT Gender Identity Male 05/18/2022 10:36 AM EDT Sexual Orientation Choose not to disclose 2021 10:36 AM EDT documented as of this encounter Miscellaneous Notes * Telephone Encounter - Batool Walker [place] - 11/21/2024 2:41 PM EDT Chart Prep Labs: done Images: not applicable Referrals: not applicable Vaccines due: Covid, PCV20, Hep B, and Zoster Screenings: not applicable Overdue care gaps: YAHAIRA-7 and Disability screen documented in this encounter Plan of Treatment Upcoming Encounters Date Type Department Care Team (Late st Contact Info) Description 02/19/2025 9:00 AM EDT Office Visit [facility] [address] [place] [address] Nilsa Sexton MD [address] [place] [address] documented as of this encounter Visit Diagnoses Not on filedocumented in this encounter Additional Health Concerns Assessment Noted Time PHQ-9 Depression Total Score: 0 03/01/20 24 2:45 PM EDT documented as of this encounter Care Teams Brinell Tester Relationship Specialty Start Date End Date Nilsa Sexton MD [address] [place] [address] PCP - General Family Medicine 09/08/19 documented as of this encounter
--- OUTSIDE RECORDS SUMMARY | 2024-11-23 09:05 | XMS_ITS | Clinical Summary ---
Author Organization [employer] Address [address] [place] [address] Care Team Providers Care Document Restorer Name Role Phone Nilsa Sexton MD Primary Care Provide r Allergies No known active allergies Medications sodium chloride (Troup) 0.65 % nasal spray 1-2 spray on each nostril every 2-3 hours as needed for nasal congestion 022 Active triamcinolone (Kenalog) 0.5 % cream Apply topically every 12 (twelve) hours. apply by topical route 2 times every day a thin layer to the affected area(s) 022 Active zoster vaccine-recombina nt adjuvanted (Shingrix) 50 MCG/0.5ML vaccine Inject 0.5 mL into the shoulder, thigh, or buttocks. 022 Active neomycin-polymyxi n-dexAMETHasone 0.1 % ointmentIndicatio ns:Preseptal cellulitis Apply to right upper eyelid twice a day. 3.5 g 1 023 Active Respiratory Therapy Supplies (CareTouch CPAP & BIPAP Hose) [facility] [place], Maintenance, 03/07/10 17:04:49 010 Active polyethylene glycol, PEG, 3350 (MiraLax) 17 GM/SCOOP powderIndications :Gastroesophageal reflux disease without esophagitis take (17G) by oral route twice daily mixed with 8 oz. water, juice, soda, coffee or tea 850 g 1 023 Active cyclobenzaprine (Flexeril) 5 MG tabletIndications :Degeneration of lumbar intervertebral disc Take 1 tablet (5 mg) by mouth every 8 (eight) hours. take 1 tablet by oral route 3 times every day 30 tablet Active lisinopril (Zestril) 30 MG tabletIndications :Primary hypertension Take 1 tablet (30 mg) by mouth Once per day. 30 tablet 024 2024 Active atorvastatin (Lipitor) 40 MG tabletIndications :Mixed hyperlipidemia Take 1 tablet (40 mg) by mouth Once per day. 90 tablet 024 Active pantoprazole (Protonix) 40 MG EC tabletIndications :Gastroesophageal reflux disease without esophagitis Take 1 tablet (40 mg) by mouth before breakfast. 30 tablet 024 Active clobetasol (Temovate) 0.05 % creamIndications: Psoriasis Apply topically 2 times daily. 60 g Active amLODIPine (Norvasc) 5 MG tabletIndications :Benign hypertension Take 1 tablet (5 mg) by mouth Once per day. 30 tablet 025 2025 Active aspirin 81 MG EC tabletIndications :Benign hypertension Take 1 tablet (81 mg) by mouth Once per day. 90 tablet Active metoprolol tartrate (Lopressor) 25 MG tabletIndications :Essential hypertension TAKE 1 TABLET BY MOUTH EVERY TWELVE HOURS 180 tablet Active gabapentin (Neurontin) 600 MG tabletIndications :Numbness and tingling sensation of skin Take 1 tablet (600 mg) by mouth 3 times daily. 90 tablet 024 2024 Discontinued aspirin 81 MG EC tabletIndications :Benign hypertension Take 1 tablet (81 mg) by mouth Once per day. 90 tablet 024 2024 Discontinued(R eorder (will not trigger notification to Pharmacy)) amLODIPine (Norvasc) 5 MG tabletIndications :Benign hypertension Take 1 tablet (5 mg) by mouth Once per day. 30 tablet 024 2024 Discontinued(R eorder (will not trigger notification to Pharmacy)) metoprolol tartrate (Lopressor) 25 MG tabletIndications :Essential hypertension TAKE 1 TABLET BY MOUTH EVERY TWELVE HOURS 180 tablet 024 2024 Discontinued(R eorder (will not trigger notification to Pharmacy)) clobetasol (Temovate) 0.05 % creamIndications: Psoriasis APPLY TOPICALLY TO THE AFFECTED AREA(S) TWICE DAILY DIRECTED 60 g 1 025 2024 Discontinued(R eorder (will not trigger notification to Pharmacy)) Active Problems Problem Noted Date Diagnosed Date Prediabetes 03/01/2024 Assessment & Plan (11/22/2024 2:06 PM EDT): Extensive discussion about healthy diet and exercise on today I will check his A1c with his labs Assessment & Plan (03/01/2024 3:47 PM EDT): Today extensive discussion was done about life style modifications I advise healthy diet (low calorie) and cardiovascular exercise Numbness and tingling of left lower extremity Assessment & Plan (11/30/2023 11:31 AM EDT): Neuropathy? I will increase his gabapentin to see if it helps, I will order LE US (venous and arterial) and refer patient also to vascular Primary hypertension 05/31/2023 Assessment & Plan (03/01/2024 3:47 PM EDT): I advise: - Aerobic exercise to reduce BP. Initial goal of 30 min walk 3-5x/week. Increase as tolerated. - low-sodium diet (goal: <2g/day) and heart healthy diet such as DASH to reduce BP and prevent ASCVD. - Home BP monitoring 1-2 x day with goal of <140/90. - Seek immediate medical attention for chest pain, palpitations, SOB, syncope, or sudden changes in mental status. - Do not change or discontinue current prescriptions without first consulting health care provider Assessment & Plan (05/31/2023 3:45 PM EST): Maintenance: BMP: ordered Lipid Panel: ordered ASCVD Risk: Calculate pending updated labs - Aerobic exercise to reduce BP. Initial goal of 30 min walk 3-5x/week. Increase as tolerated. - low-sodium diet (goal: <2g/day) and heart healthy diet such as DASH to reduce BP and prevent ASCVD. - Home BP monitoring 1-2 x day with goal of <140/90. - Seek immediate medical attention for chest pain, palpitations, SOB, syncope, or sudden changes in mental status. - Do not change or discontinue current prescriptions without first consulting health care provider Gastroesophageal reflux disease without esophagi tis 02/23/2023 Numbness and tingling sensation of skin 12/01/19 23 Pre-syncope 11/30/2022 Acute back pain with sciatica 06/26/2022 Chest discomfort 06/26/2022 Degeneration of lumbar intervertebral disc 06/26 Benign hypertension 06/26/2022 Assessment & Plan (11/22/2024 2:06 PM EDT): I advised: - Aerobic exercise to reduce BP. Initial goal of 30 min walk 3-5x/week. Increase as tolerated. - low-sodium diet (goal: <2g/day) and heart healthy diet such as DASH to reduce BP and prevent ASCVD. - Home BP monitoring 1-2 x day with goal of <140/90. - Seek immediate medical attention for chest pain, palpitations, SOB, syncope, or sudden changes in mental status. - Do not change or discontinue current prescriptions without first consulting health care provider Assessment & Plan (11/30/2023 11:30 AM EDT): - Aerobic exercise to reduce BP. Initial goal of 30 min walk 3-5x/week. Increase as tolerated. - low-sodium diet (goal: <2g/day) and heart healthy diet such as DASH to reduce BP and prevent ASCVD. - Home BP monitoring 1-2 x day with goal of <140/90. - Seek immediate medical attention for chest pain, palpitations, SOB, syncope, or sudden changes in mental status. - Do not change or discontinue current prescriptions without first consulting health care provider Assessment & Plan (02/23/2023 12:22 PM EDT): - Aerobic exercise to reduce BP. Initial goal of 30 min walk 3-5x/week. Increase as tolerated. - low-sodium diet (goal: <2g/day) and heart healthy diet such as DASH to reduce BP and prevent ASCVD. - Home BP monitoring 1-2 x day with goal of <140/90. - Seek immediate medical attention for chest pain, palpitations, SOB, syncope, or sudden changes in mental status. - Do not change or discontinue current prescriptions without first consulting health care provider Assessment & Plan (11/30/2022 4:52 PM EDT): - Aerobic exercise to reduce BP. Initial goal of 30 min walk 3-5x/week. Increase as tolerated. - low-sodium diet (goal: <2g/day) and heart healthy diet such as DASH to reduce BP and prevent ASCVD. - Home BP monitoring 1-2 x day with goal of <140/90. - Seek immediate medical attention for chest pain, palpitations, SOB, syncope, or sudden changes in mental status. - I increase amlodipine to 5mg daily I instructed to check his BP at home I will call him in 3 weeks and check on him - Do not change or discontinue current prescriptions without first consulting health care provider Internal hemorrhoids 06/26/2022 Trapezius muscle spasm 06/26/2022 Pain in lower limb 06/26/2022 Pain in wrist 06/26/2022 Palpitations 06/26/2022 Peripheral vascular disease 06/26/2022 Psoriasis 06/26/2022 Assessment & Plan (11/22/2024 2:07 PM EDT): I will refill his clobetasol cream and I will refer this patient to dermatology Tension-type headache 06/26/2022 Ulcerative colitis 06/26/2022 Assessment & Plan (11/22/2024 2:06 PM EDT): I will refer this patient back to GI for follow-up and surveillance of his ulcerative colitis Assessment & Plan (11/30/2022 4:52 PM EDT): Continue to follow with GI 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) 11/21/2024 Telephone [facility] [address] [place] [address] Nilsa Sexton MD Chart Prep 11/15/2024 Patient Outreach [facility] [address] [place] [address] Nilsa Sexton MD Pre-visit Planning (LVM) from Last 3 Months Immunizations Name Administration Dates Next Due Td (adult), unspecified 09/04/2008,06/30/2000 Tdap 03/09/2022,10/23/2009 Zoster, Recombinant 08/14/2022 Family History Medical History Relation Name Comments Diabetes Brother Colon cancer Father Relation Name Status Comments Brother Father Social History Tobacco Use Types Packs/Day Years Used Date Smoking Tobacco: Never Passive Smoke Exposure: Never Smokeless Tobacco: Never Tobacco Cessation:Counseling Given: Not Answered Alcohol Use Standard Drinks/Week Comments Never 0 [...] not to disclose 2021 10:36 AM EDT Last Filed Vital Signs Vital Sign Reading Time Taken Comments Blood Pressure 138/83 11/22/2024 11:02 AM EDT Pulse 59 11/22/2024 11:02 AM EDT Temperature 36.2 ??C (97.2 ??F) 11/22/2024 11:02 AM E DT Respiratory Rate 20 11/22/2024 11:02 AM EDT Oxygen Saturation 98% 03/01/2024 2:39 PM EDT Inhaled Oxygen Concentration - - Weight 107 kg (236 lb 12.8 oz) 11/22/2024 11:02 AM EDT Height 172.7 cm (5' 8 ) 11/22/2024 11:02 AM EDT Body Mass Index 36.01 11/22/2024 11:02 AM EDT Plan of Treatment Upcoming Encounters Date Type Department Care Team (Late st Contact Info) Description 02/19/2025 9:00 AM EDT Office Visit [facility] [address] [place] [address] Nilsa Sexton MD [address] [place] [address] Health Maintenance Due Date Last Done Comments CT Colonography 1965 FIT DNA/Cologuard 1965 FIT 1965 FOBT 1965 Sigmoidoscopy 1965 Hepatitis B Vaccines (1 of 3 - 19+ 3-dose series) 02/23/1984 Pneumococcal Vaccine: 50+ Years (1 of 1 - PCV) 2015 Zoster Vaccines (2 of 2) 10/09/2022 08/14/2022 COVID-19 Vaccine (1 - season) 2024 Influenza Vaccine (#1) 2024 Alcohol/Substance Use Screening 03/01/2025 03/01/2024 Depression Screening 03/01/2025 03/01/2024, 03/01/20 Diabetes: Hemoglobin A1C 03/01/2025 024, 11/24/2021, 05/01/2021, Additional history exists SDOH Screening 03/01/2025 03/01/2024 Colonoscopy 10/02/2025 10/02/2020 Colorectal Cancer Screening 10/02/2025 Tobacco Screening 11/22/2025 11/22/2024 Lipid Panel 12/30/2028 12/31/2023, 03/19, 07/11/2020 DTaP/Tdap/Td Vaccines (3 - Td or Tdap) 03/09/2032 03/09/2022, 10/23/2009, 09/04/2008, Additional history exists RSV Patients and Patients Aged 60 years or older (1 - 1-dose 75+ series) 02/23/2040 HIV Screening Completed 09/08/2019 Hepatitis C Screening Completed 10/21/2022 HIB Vaccines Aged Out No longer eligi ble based on patient's age to complete this topic HPV Vaccines Aged Out No longer eligi ble based on patient's age to complete this topic Hepatitis A Vaccines Aged Out No long er eligible based on patient's age to complete this topic IPV Vaccines Aged Out No longer eligi ble based on patient's age to complete this topic Meningococcal Vaccine Aged Out No denita geronimo eligible based on patient's age to complete this topic RSV under 20 months Aged Out No longe r eligible based on patient's age to complete this topic Rotavirus Vaccines Aged Out No longer eligible based on patient's age to complete this topic Procedures Procedure Name Priority Date/Time Associated Diagnosis Comments POCT GLYCATED HEMOGLOBIN, TOTAL Routine 03/01/2024 3:09 PM EDT Prediabetes LIPID PANEL, STANDARD Routine 12/31/2023 8:34 AM EDT Numbness and tingling sensation of skin HEPATITIS PANEL, GENERAL Routine 10/21/2022 5:02 PM EDT Epigastric pain HM COLONOSCOPY Routine 10/02/2020 ZZZ HISTORICAL HIV AB/AG Routine 09/08/2019 10:50 AM EST from Last 3 Months or Most Recently Relevant to Health Maintenance Results * POCT HGB A1C (03/01/2024 3:09 PM EDT) Hemoglobin A1C 5.8 4.0 - 6.0 % QC Media Lot # [id number] Lot# Expiration Date ,[id number] Blood 03/01/2024 3:09 PM EDT Nilsa Pruitt MD POINT OF CARE TEST ENTER/EDIT ORDERABLES Edited Result - Final * Lipid Panel, Standard (12/31/2023 8:34 AM EDT) Triglycerides 64 <150 mg/dL [facility] Comment:Desirable Triglyceri de: less than 150 mg/dLBorderline High Triglyceride 150-199 mg/dLHigh Triglyceride: 200-499 mg/dLVery High Triglyceride: greater than or equal to 5OO mg/dL Cholesterol 143 <200 mg/dL [facility] Comment:Desirable Cholestero l: less than 200 mg/dLBorderline High Cholesterol: 200-239 mg/dLHigh Cholesterol: greater than 239 mg/dL LDL Cholesterol Calculated 87 <100 mg/dL [facility] Comment:Desirable LDL: less than 100 mg/dLNear Optimal/Above Optimal LDL: 110- 129 mg/dLBorderline High LDL: 130-159 mg/dLHigh LDL: 160-189 mg/dLVery High LDL: greater than or equal to 190 mg/dL HDL Cholesterol 44 >40 mg/dL [facility] Comment:Desirable HDL: great er than 40 mg/dL Note: This HDL assay may give artificially low results in patients with liver disease. Blood Venous blood specimen / Unknown 12/31/2023 8:34 AM EDT 12/31/2023 11:07 AM EDT us Nilsa Pruitt MD LAB BLOOD ORDERABLES Final Result [facility] [address] [place] [phone] * (ABNORMAL) Hepatitis Panel, General (10/21/2022 5:02 PM EDT) Hepatitis A Antibody Total REACTIVE( A) NON-REACT RADHA [facility] Comment: For additional information, please refer to http://[email or web address]/TFD190 (This link is being provided for informational/ educational purposes only.) Hepatitis B Surface Antibody QL NON-REACT RADHA NON-REACT RADHA [facility] Hepatitis B Surface Ag NON-REACT RADHA NON-REACT RADHA [facility] Hepatitis B Core Antibody Total NON-REACT RADHA NON-REACT RADHA [facility] Hepatitis C Antibody NON-REACT RADHA NON-REACT RADHA [facility] Index 0.09 <1.00 [facility] Comment: HCV antibody was non-reactive. There is no laboratory evidence of HCV infection. In most cases, no further action is required. However, if recent HCV exposure is suspected, a test for HCV RNA (test code 50598) is suggested. For additional information please refer to http://[email or web address]/faq/NOY72p9 (This link is being provided for informational/ educational purposes only.) 10/21/2022 5:02 PM EDT 10/21/2022 5:03 PM EDT us aMria Luisa YANCEY LAB BLOOD ORDERABLES Final Res ult Performing Organization Address City/[facility]/ZIP Co de Phone Number Streetline [address] [place] [address], [place] [address] [employer] [address] [place] [address] * Hm Colonoscopy (10/02/2020) Colonoscopy Normal Normal Narrative Vandana Bobo - 10/02/2020 Repeat Colonoscopy in 5 years or earlier if clinically indicated. See legacy note from 10/02/2020 Historical Provider HEALTH MAINTENANCE Edited Result - Final * HIV AB/AG (09/08/2019 10:50 AM EST) HIV AG/AB NONREACTIVE [facility] Comment: HIV-1 p24 Ag and/or HIV-1/HIV-2 Ab not detected. ?? A test result that is nonreactive does not exclude the possibility of exposure to or infection with HIV-1 and/or HIV-2. Nonreactive results in this assay for individuals with prior exposure to HIV-1 and/or HIV-2 may be due to antigen and antibody levels that are below the limit of detection of this assay. ?? The [employer] HIV Ag/Ab Combo assay result and supplemental assay results should be interpreted in conjunction with the patient's clinical presentation, history and other laboratory results. ??If the results are inconsistent with clinical evidence, additional testing is suggested to confirm the result. 09/08/2019 10:5 0 AM EST Nilsa Pruitt MD HISTORICAL/NON ORDERA BLE LABS Final Result [facility] Counts include 234 beds at the [facility] Anywhere [address] from Last 3 Months or Most Recently Relevant to Health Maintenance Insurance [employer] OPEN ACCESS Care Teams Document Restorer Relationship Specialty Start Date End Date Nilsa Sexton MD [address] [place] [address] PCP - General Family Medicine 09/08/19
--- OUTSIDE RECORDS SUMMARY | 2024-11-23 09:05 | XMS_ITS | Encounter Summary ---
Author Organization [employer] Address [address] [facility] [address] [place] [address] Care Team Providers Care Clothes Marker Name Role Phone Nilsa Sexton MD Primary Care Provide r Reason for Referral * Consultation (Routine) - Pending Review Specialty Diagnoses / Procedures Referred By Contgil t Referred To Contact Gastroenterology Diagnoses Ulcerative colitis with complication, unspecified location ([facility] Nilsa Sexton MD [address] [place] [address] Phone: tel: fax: Referral ID Status Reason Start Date Expiration Date Visits Requested Visits Authorized [id number] Pending Review Specialty Services Required 11/22/2024 11/22/2025 1 1 * Consultation (Routine) - Authorized Specialty Diagnoses / Procedures Referred By Cherise t Referred To Contact Family Medicine Diagnoses Psoriasis Nilsa Sexton MD [address] [place] [address] Phone: tel: fax: Referral ID Status Reason Start Date Expiration Date Visits Requested Visits Authorized [id number] Authorized Specialty Services Required 11/22/2024 11/22/2025 1 1 Encounter Details Date Type Department Care Team (Late st Contact Info) Description 11/22/2024 10:30 AM EDT Office Visit [facility] [address] [place] [address] Nilsa Sexton MD [address] [place] [address] Primary hypertension; Prediabetes; Psoriasis; Benign hypertension; Essential hypertension; Ulcerative colitis with complication, unspecified location (CMS/HCC) Social History Tobacco Use Types Packs/Day Years [...] AM EDT documented as of this encounter Last Filed Vital Signs Vital Sign Reading Time Taken Comments Blood Pressure 138/83 11/22/2024 11:02 AM EDT Pulse 59 11/22/2024 11:02 AM EDT Temperature 36.2 ??C (97.2 ??F) 11/22/2024 11:02 AM E DT Respiratory Rate 20 11/22/2024 11:02 AM EDT Oxygen Saturation - - Inhaled Oxygen Concentration - - Weight 107 kg (236 lb 12.8 oz) 11/22/2024 11:02 AM EDT Height 172.7 cm (5' 8 ) 11/22/2024 11:02 AM EDT Body Mass Index 36.01 11/22/2024 11:02 AM EDT documented in this encounter Progress Notes * Nilsa Pruitt MD - 11/22/2024 10:30 AM EDT SUBJECTIVE: Tom Chavira is a 59 y.o. year old male who presents for Chronic Disease Management . Acute Concerns: Patient reports he has been having again a flare of his psoriasis he has itchy patches on his arms and on his back he ran out of his a regular medication, he tells me he has never been seen by Derm Patient also is a little concerned about his ulcerative colitis, he reports he has been stable but has not been followed by GI for regular colonoscopies Social History Social History Narrative Not on file Patient Active Problem List Diagnosis Acute back pain with sciatica Obstructive sleep apnea syndrome Chest discomfort Degeneration of lumbar intervertebral disc Benign hypertension Internal hemorrhoids Trapezius muscle spasm Pain in lower limb Pain in wrist Palpitations Peripheral vascular disease (CMS/HCC) Psoriasis Right bundle branch block Tension-type headache Ulcerative colitis (CMS/HCC) 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 HENT: Negative. Respiratory: Negative. Cardiovascular: Negative. Gastrointestinal: Negative. Skin: Positive for rash. OBJECTIVE: Vitals: 11/22/24 1102 BP: 138/83 BP Location: Left arm Patient Position: Sitting BP Cuff Size: Adult Pulse: 59 Resp: 20 Temp: 97.2 ??F (36.2 ??C) TempSrc: Oral Weight: 236 lb 12.8 oz (107 kg) Height: 5' 8 (1.727 m) Physical Exam Constitutional: Appearance: Normal appearance. Cardiovascular: Rate and Rhythm: Normal rate and regular rhythm. Pulmonary: Effort: Pulmonary effort is normal. Breath sounds: Normal breath sounds. Abdominal: General: Abdomen is flat. Palpations: Abdomen is soft. Musculoskeletal: Right lower leg: No edema. Left lower leg: No edema. Neurological: Mental Status: He is alert. Follow Up: Follow up in about 3 months (around 2025) for chronic conditions . Current Outpatient Medications on File Prior to Visit Medication Sig Dispense Refill atorvastatin (Lipitor) 40 MG tablet Take 1 tablet (40 mg) by mouth Once per day. 90 tablet 0 cyclobenzaprine (Flexeril) 5 MG tablet Take 1 tablet (5 mg) by mouth every 8 (eight) hours. take 1 tablet by oral route 3 times every day 30 tablet 1 lisinopril (Zestril) 30 MG tablet Take 1 tablet (30 mg) by mouth Once per day. 30 tablet 11 wmzkowlr-xlduzjine-gchMJUBKlwvre 0.1 % ointment Apply to right upper eyelid twice a day. 3.5 g 1 pantoprazole (Protonix) 40 MG EC tablet Take 1 tablet (40 mg) by mouth before breakfast. 30 tablet 1 polyethylene glycol, PEG, 3350 (MiraLax) 17 GM/SCOOP powder take (17G) by oral route twice daily mixed with 8 oz. water, juice, soda, coffee or tea 850 g 1 Respiratory Therapy Supplies (CareTouch CPAP & BIPAP Hose) [facility] See Instructions, Maintenance, 03/07/10 17:04:49 sodium chloride ([place]) 0.65 % nasal spray 1-2 spray on each nostril every 2-3 hours as needed for nasal congestion triamcinolone (Kenalog) 0.5 % cream Apply topically every 12 (twelve) hours. apply by topical route2 times every day a thin layer to the affected area(s) zoster vaccine-recombinant adjuvanted (Shingrix) 50 MCG/0.5ML vaccine Inject 0.5 mL into the shoulder, thigh, or buttocks. [DISCONTINUED] amLODIPine (Norvasc) 5 MG tablet Take 1 tablet (5 mg) by mouth Once per day. 30 tablet 11 [DISCONTINUED] aspirin 81 MG EC tablet Take 1 tablet (81 mg) by mouth Once per day. 90 tablet 1 [DISCONTINUED] clobetasol (Temovate) 0.05 % cream APPLY TOPICALLY TO THE AFFECTED AREA(S) TWICE DAILY DIRECTED 60 g 1 [DISCONTINUED] gabapentin (Neurontin) 600 MG tablet Take 1 tablet (600 mg) by mouth 3 times daily. 90 tablet 1 [DISCONTINUED] metoprolol tartrate (Lopressor) 25 MG tablet TAKE 1 TABLET BY MOUTH EVERY TWELVE HOURS 180 tablet 0 No current facility-administered medications on file prior to visit. Problem List Items Addressed This Visit Primary hypertension Relevant Orders CBC auto differential Comprehensive Metabolic Panel Hemoglobin A1c HIV-1/2 Antigen and Antibodies, Fourth Generation, with Reflexes Hepatitis C Antibody with Reflex to HCV, RNA, Quantitative, Real-Time PCR Lipid Panel, Standard Vitamin D, 25-Hydroxy, Total, Immunoassay Prediabetes Extensive discussion about healthy diet and exercise on today I will check his A1c with his labs Relevant Orders CBC auto differential Comprehensive Metabolic Panel Hemoglobin A1c HIV-1/2 Antigen and Antibodies, Fourth Generation, with Reflexes Hepatitis C Antibody with Reflex to HCV, RNA, Quantitative, Real-Time PCR Lipid Panel, Standard Vitamin D, 25-Hydroxy, Total, Immunoassay Psoriasis I will refill his clobetasol cream and I will refer this patient to dermatology Relevant Medications clobetasol (Temovate) 0.05 % cream Other Relevant Orders Referral to [facility] Derm Skin Adult Benign hypertension I advised: - Aerobic exercise to reduce BP. Initial goal of 30 min walk 3-5x/week. Increase as tolerated. - low-sodium diet (goal: <2g/day) and heart healthy diet such as DASH to reduce BP and prevent ASCVD. - Home BP monitoring 1-2 x day with goal of <140/90. - Seek immediate medical attention for chest pain, palpitations, SOB, syncope, or sudden changes inmental status. - Do not change or discontinue current prescriptions without first consulting health care provider Relevant Medications amLODIPine (Norvasc) 5 MG tablet aspirin 81 MG EC tablet metoprolol tartrate (Lopressor) 25 MG tablet Ulcerative colitis (CMS/HCC) I will refer this patient back to GI for follow-up and surveillance of his ulcerative colitis Relevant Orders Referral to Gastroenterology Other Visit Diagnoses Essential hypertension Relevant Medications metoprolol tartrate (Lopressor) 25 MG tablet documented in this encounter Miscellaneous Notes * Assessment & Plan Note - Nilsa Pruitt MD - 11/22/2024 2:07 PM EDT Associated Problem(s): Psoriasis I will refill his clobetasol cream and I will refer this patient to dermatology * Assessment & Plan Note - Nilsa Pruitt MD - 11/22/2024 2:06 PM EDT Associated Problem(s): Prediabetes Extensive discussion about healthy diet and exercise on today I will check his A1c with his labs * Assessment & Plan Note - Nilsa Pruitt MD - 11/22/2024 2:06 PM EDT Associated Problem(s): Ulcerative colitis (CMS/HCC) I will refer this patient back to GI for follow-up and surveillance of his ulcerative colitis * Assessment & Plan Note - Nilsa Pruitt MD - 11/22/2024 2:06 PM EDT Associated Problem(s): Benign hypertension I advised: - Aerobic exercise to reduce BP. Initial goal of 30 min walk 3-5x/week. Increase as tolerated. - low-sodium diet (goal: <2g/day) and heart healthy diet such as DASH to reduce BP and prevent ASCVD. - Home BP monitoring 1-2 x day with goal of <140/90. - Seek immediate medical attention for chest pain, palpitations, SOB, syncope, or sudden changes inmental status. - Do not change or discontinue current prescriptions without first consulting health care provider documented in this encounter Plan of Treatment Upcoming Encounters Date Type Department Care Team (Late st Contact Info) Description 02/19/2025 9:00 AM EDT Office Visit [facility] [address] [place] [address] Nilsa Sexton MD [address] [place] [address] Scheduled Orders Name Type Priority Associated Diagnoses Orde r Schedule CBC auto differential Lab Routine Primary hypertension Prediabetes Expected: 11/22/2024 (Approximate), Expires: 11/22/2025 Comprehensive Metabolic Panel Lab Routine Primary hypertension Prediabetes Expected: 11/22/2024 (Approximate), Expires: 11/22/2025 Hemoglobin A1c Lab Routine Primary hypertension Prediabetes Expected: 11/22/2024 (Approximate), Expires: 11/22/2025 HIV-1/2 Antigen and Antibodies, Fourth Generation, with Reflexes Lab Routine Primary hypertension Prediabetes Expected: 11/22/2024 (Approximate), Expires: 11/22/2025 Hepatitis C Antibody with Reflex to HCV, RNA, Quantitative, Real-Time PCR Lab Routine Primary hypertension Prediabetes Expected: 11/22/2024, Expires: 11/22/2025 Lipid Panel, Standard Lab Routine Primary hypertension Prediabetes Expected: 11/22/2024 (Approximate), Expires: 11/22/2025 Vitamin D, 25-Hydroxy, Total, Immunoassay Lab Routine Primary hypertension Prediabetes Expected: 11/22/2024 (Approximate), Expires: 11/22/2025 Scheduled Referrals Name Type Priority Associated Diagnoses Order Schedule Referral to [facility] Derm Skin Adult Outpatient Referral Routine Psoriasis Expected: 11/22/2024 (Approximate), Expires: 11/22/2025 Referral to Gastroenterology Outpatient Referral Routine Ulcerative colitis with complication, unspecified location (CMS/HCC) Expected: 11/22/2024 (Approximate), Expires: 11/22/2025 documented as of this encounter Visit Diagnoses Diagnosis Primary hypertension Unspecified essential hypertension Prediabetes Other abnormal glucose Psoriasis Other psoriasis Benign hypertension Essential hypertension, benign Essential hypertension Unspecified essential hypertension Ulcerative colitis with complication, unspecified location ([facility]) documented in this encounter Additional Health Concerns Assessment Noted Time PHQ-9 Depression Total Score: 0 03/01/20 24 2:45 PM EDT documented as of this encounter Care Teams Clothes Marker Relationship Specialty Start Date End Date Nilsa Sexton MD [address] [place] [address] PCP - General Family Medicine 09/08/19 documented as of this encounter
[2024-11-23 11:09] LABS: MANUAL DIFF FLAG NO
[2024-11-23 11:12] LABS: Basophils Percent Auto 0.4 % (0-2); Eosinophils Absolute Auto 0.1 X10*3/uL (0.0-0.4); Eosinophils Percent Auto 1.6 % (0-4); Hematocrit 43.9 % (42.0-52.0); Hemoglobin 14.7 g/dl (14.0-18.0); Imm Gran Abs Auto 0.01 X10*3/uL (0.00-0.03); Imm Gran Pct Auto 0.2 % (0.0-0.4); Lymphocytes Absolute Auto 1.4 X10*3/uL (1.2-4.9); Lymphocytes Percent Auto 29.6 % (20-40); Mean Corpuscular HGB Conc 33.5 g/dl (31.0-36.0); Mean Corpuscular Hemoglobin 28.3 pg (27.0-33.0); Mean Corpuscular Volume 84.6 fL (80.0-98.0); Mean Platelet Volume 10.4 fL (9.4-12.4); Monocytes Absolute Auto 0.5 X10*3/uL (0.1-1.2); Monocytes Percent Auto 9.2 % (2-11); Neutrophils Absolute Auto 2.9 x10*3/uL (2.0-8.3); Platelet Count 195 X10*3/uL (160-400); Red Blood Count 5.19 X10*6/uL (4.60-5.80); Red Cell Distribution Width 13.6 % (11.0-16.0); White Blood Count 4.9 X10*3/uL (4.8-10.8)
[2024-11-23 11:23] LABS: Estimated Average Glucose 120 mg/dL; Hemoglobin A1C 155.2123 umol/L; Hemoglobin A1c % 5.8 % (<6.0); Total Hemoglobin (HGBA1C) 3870.0647 umol/L
[2024-11-23 11:44] LABS: Alanine Aminotransferase 40 U/L (0-40); Albumin Level 4.1 g/dL (3.5-5.0); Alkaline Phosphatase 42 U/L (39-117); Anion Gap 12 (12-20); Aspartate Amino Transferase 42 U/L (5-37); Bilirubin Total 0.8 mg/dL (0.0-1.0); Blood Urea Nitrogen 21 mg/dL (9-16); Calcium 9.2 mg/dL (8.4-10.2); Carbon Dioxide 25 mmol/L (22-29); Chloride 105 mmol/L (96-108); Cholesterol 152 mg/dL (<200); Estimated Glomerular Filt Rate > 60; Glucose Random 91 mg/dL (60-115); HDL Cholesterol 50 mg/dL (>40); HIV AB/AG Nonreactive (Nonreactive); HIV Num 1 0.11 S/CO (0.00-0.99); LDL Cholesterol Calculated 93 mg/dL (<100); Potassium 3.8 mmol/L (3.3-5.1); Sodium 138 mmol/L (135-145); Triglycerides 45 mg/dL (<150); Vitamin D 25-OH Total 53.8 ng/mL (>30); ~HepC Num1 0.11 S/CO (0.00-0.79); ~Hepatitis C Antibody Nonreactive (Nonreactive)
== END 2024-11-23 08:45 | disposition home or self-care (01) ==
LOC: HO.HHCL 08:44
PROVIDERS: Visit Provider Internal Medicine
DX: R20.0 Anesthesia of skin (principal); R20.2 Paresthesia of skin; R73.03 Prediabetes; I10 Essential (primary) hypertension
CPT/HCPCS: 36415; 80053; 80061; 82306; 83036; 85025; 86803; 87389

== ENCOUNTER 2025-02-13 12:34 | Outpatient (REF) | payer OTHER, SELFPAY ==
--- NOTE | ~2025-02-13 | XR_ITS ---
EXAMINATION: XR LUMBOSACRAL SPINE CLINICAL INFORMATION: pain COMPARISON: December 15, 2019 TECHNIQUE: Three views of the lumbosacral spine. FINDINGS: There are 5 nonrib-bearing lumbar sequence. There is moderate facet sclerosis, more advanced in the lower lumbar spine. There are large anterior osteophytes bridging between L1-2, L2-3, L3-4, increased from the prior. There is mild displacement at T12-L1. There is minimal retrolisthesis at L2-3. XR/XR lumbar spine 2-3V IMPRESSION: Bony bridging the anterior spine between T12-L4. Diffuse idiopathic skeletal hyperostosis (DISH) favored over ankylosing spondylitis. Electronically signed by: Dennis Shields MD 02/13/2025 12:58 PM EDT
--- OUTSIDE RECORDS SUMMARY | 2025-02-13 13:21 | XMS_ITS | Encounter Summary ---
Author Organization [employer] Address [address] [place] [address] Care Team Providers Care Parking Meter Installer Name Role Phone Nilsa Sexton MD Primary Care Provide r Reason for Visit * Reason Comments Pre-visit Planning SDOH unable to reach LVM Encounter Details Date Type Department Care Team ([facility] Contact Info) Description 02/12/2025 Patient Outreach [facility] [address], [place] [phone] Nilsa Sexton MD [address] [place] [address] Pre-visit Planning (SDOH unable to reach LV) Social History Tobacco Use Types Packs/Day Years [...] the past 12 months, has t he [employer] threatened to shut off services in your [...] AM EDT documented as of this encounter Progress Notes * Rosie Finley - 02/12/2025 1:48 PM EDT LUZ Mandujano placed outbound call to patient to complete pre-visit planning. No answer at this time. Patient name and were not confirmed. CC left voicemail requesting return call. Direct contactinformation provided. documented in this encounter Plan of Treatment Upcoming Encounters Date Type Department Care Team (Late st Contact Info) Description 02/19/2025 9:00 AM EDT Office Visit [facility] [address] [place] [address] Nilsa Sexton MD [address] [place] [address] documented as of this encounter Visit Diagnoses Not on filedocumented in this encounter Additional Health Concerns Assessment Noted Time PHQ-9 Depression Total Score: 0 03/01/20 24 2:45 PM EDT documented as of this encounter Care Teams Parking Meter Installer Relationship Specialty Start Date End Date Nilsa Sexton MD [address] [place] [id number] PCP - General Family Medicine 09/08/19 documented as of this encounter
== END 2025-02-13 12:35 | disposition home or self-care (01) ==
LOC: HO.XRAY 12:34
PROVIDERS: PCP Internal Medicine; Visit Provider Internal Medicine
DX: M79.605 Pain in left leg (principal); M54.50 Low back pain, unspecified
CPT/HCPCS: 72100

== ENCOUNTER → 2025-02-13 12:36 | Outpatient (BNV) | payer OTHER, SELFPAY | PROVIDERS: PCP Internal Medicine; Visit Provider Radiology Diagnostic Radiology | DX: M54.50 Low back pain, unspecified (principal); M48.16 Ankylosing hyperostosis [Forestier], lumbar region | CPT/HCPCS: 72100 ==